=== PATIENT | female | born 1950 | race Caucasian/White ===

== ENCOUNTER 2017-03-30 08:09 | Observation (INO) | payer MEDICARE ==
[2017-03-30] MEDS ORDERED: Aspirin Low Dose CHEW TAB* 81 MG PO ONE (08:47)
[2017-03-30 09:17] LABS: Hematocrit 40 % (35-47); Hemoglobin 13.6 g/dl (12.0-16.0); Mean Corpuscular HGB Conc 34 g/dl (31-36); Mean Corpuscular Hemoglobin 34 pg (27-31); Mean Corpuscular Volume 99 fL (80-97); Mean Platelet Volume 8 um3 (7.4-10.4); Red Blood Count 4.04 10^6/ul (4.0-5.4); Red Cell Distribution Width 13 % (10.5-15); White Blood Count 3.5 10^3/ul (3.5-10.8)
[2017-03-30 09:26] LABS: Albumin 4.3 g/dL (3.2-5.2); Calcium 9.8 mg/dL (8.6-10.3); EGFR African American 90.4 (>60); EGFR Non-African American 70.3 (>60); Globulin 2.8 g/dL (2-4); Total Bilirubin 0.7 mg/dL (0.2-1.0); Total Protein 7.1 g/dL (6.4-8.9)
--- NOTE | 2017-03-30 10:08 | RAD ---
INDICATION: Chest pain COMPARISON: March 28, 2017 TECHNIQUE: An AP portable view obtained at 0930 hours is submitted. FINDINGS: Bones/Soft Tissues: There are no acute bony findings. Cardiomediastinal: The cardiomediastinal silhouette is normal. Lungs: There are no infiltrates. Pleura: There are no pleural effusions. Other: None IMPRESSION: NO ACTIVE DISEASE.
[2017-03-30 10:31] LABS: TSH (Thyroid Stimulating Horm) 1.12 mcIU/mL (0.34-5.60)
--- NOTE | 2017-03-30 11:47 | ED ---
Allie Powell SooYoung, scribed for Boom Arcos MD on 03/30/17 at 0834 . HPI Chest Pain - HPI Summary HPI Summary: A 66 y/o F presents to ED with c/o "fullness" in chest onset approx 0400 which woke pt from sleep. Associated sx: "flushing" in bilat UE, nausea, belching. Denies diaphoresis. Pt was last seen in ED on 03/28/17. The sx are the same as her prior visit. She felt OK when she was released from [facility] two days ago. She states she doesn't feel like she's in afib. She took Xanax at 0400 and Maalox at 0600 to no relief. Pt is taking Xarelto. She is scheduled to see Dr. Payan in two days. - History of Current Complaint Chief Complaint: EDChestPainROMI Time Seen by Provider: 03/30/17 08:24 Hx Obtained From: Patient, Family/Customer Relations Coordinator Onset/Duration: Started Hours Ago - approx 0400, Still Present Timing: Constant Current Severity: Moderate Pain Intensity: 7 Pain Scale Used: 0-10 Numeric Character: Other: - "fullness" in chest, "flushing" in arms Alleviating Factor(s): Nothing Associated Signs and Symptoms: Positive: Nausea, Other: - belching - Additional Pertinent History Primary Care Physician: [id number] - Allergy/Home Medications Allergies/Adverse Reactions: Allergies Allergy/AdvReac Type Severity Reaction Status Date / Time Citalopram [From Celexa] Allergy Agitation Verified 03/30/17 08:15 Penicillins [PCN] Allergy Rash Verified 03/30/17 08:15 Sulfamethoxazole Allergy Rash Verified 03/30/17 08:15 w/Trimethoprim [From Bactrim] Environmental/Seasonal Allergy Cough, Uncoded 03/30/17 08:15 Hayfever Post nasal drip PMH/Surg Hx/FS Hx/Imm Hx Previously Healthy: No Endocrine/Hematology History: Denies: Hx Diabetes Cardiovascular History: Reports: Hx Hypercholesterolemia, Hx Hypertension - ON MEDS, Hx Rheumatic Fever - A CHILD, Other Cardiovascular Problems/Disorders - PALPATATIONS, EPISODIC X10 YEARS, 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- Denies: Hx Angina, Hx Coronary Artery Disease, Hx Myocardial Infarction, Hx Pacemaker/ICD Respiratory History: Denies: Hx Asthma, Hx Chronic Obstructive Pulmonary Disease (COPD) GI History: Reports: Hx Gastroesophageal Reflux Disease Musculoskeletal History: Reports: Hx Arthritis, Hx Tendonitis, Other Musculoskeletal History - cervical disc disease Denies: Hx Osteoporosis Sensory History: Reports: Hx Cataracts, Hx Contacts or Glasses Denies: Hx Hearing Aid Opthamlomology History: Reports: Hx Cataracts, Hx Contacts or Glasses Neurological History: Reports: Hx Migraine Psychiatric History: Reports: Hx Anxiety Denies: Hx Panic Disorder - Cancer History Hx Chemotherapy: No Hx Radiation Therapy: No - Surgical History Surgery Procedure, Year, and Place: 1956 TONSILLECTOMY, [place]. DILATION AND CURETTAGE, [facility]. RIGHT GANGLION CYST EXCISION, [facility]. HYSTERECTOMY, [facility] Hx Anesthesia Reactions: No Infectious Disease History: No Infectious Disease History: Denies: Hx Clostridium Difficile, Hx Hepatitis, Hx Human Immunodeficiency Virus (HIV), Hx of Known/Suspected MRSA, Hx Shingles, Hx Tuberculosis, History Other Infectious Disease, Traveled Outside the in Last 30 Days - Family History Known Family History: Positive: Other - Cancer, dementia - Social History Occupation: Retired Lives: With Family Alcohol Use: Daily Alcohol Amount: 2 glasses of wine per day Hx Substance Use: Yes Substance Use Type: Reports: Prescribed Hx Tobacco Use: Yes Smoking Status (MU): Former Smoker Type: Cigarettes Amount Used/How Often: 1 1/2 PPD Length of Time of Smoking/Using Tobacco: 25 YEARS Have You Smoked in the Last Year: No Review of Systems Negative: Skin Diaphoresis Positive: Chest Pain - "fullness" Positive: Nausea, Other - pos: belching Positive: Other - bilat "flushing" UE All Other Systems Reviewed And Are Negative: Yes Physical Exam - Summary Physical Exam Summary: The patient is well-nourished in no acute distress and in no acute pain. The skin is warm and dry and skin color reflects adequate perfusion. HEENT: The head is normocephalic and atraumatic. The pupils are equal and reactive. The conjunctivae are clear and without drainage. Nares are patent and without drainage. Mouth reveals moist mucous membranes and the throat is without erythema and exudate. The external ears are intact. The ear canals are patent and without drainage. The tympanic membranes are intact. Neck is supple with full range of motion and non-tender. There are no carotid bruits. There is no neck vein distension. Respiratory: Chest is non-tender. Lungs are clear to auscultation and breath sounds are symmetrical and equal. Cardiovascular: Hear is regular rate and rhythm. There is no murmur or rub auscultated. There is no peripheral edema and pulses are symmetrical and equal. Abdomen: The abdomen is soft and non-tender. There are normal bowel sounds heard in all four quadrants and there is no organomegaly palpated. Musculoskeletal: There is no back pain noted. Extremities are non-tender with full range of motion. There is good capillary refill. There is no peripheral edema or calf tenderness elicited. Neurological: Patient is alert and oriented to person, place and time. The patient has symmetrical motor strength in all four extremities. Cranial nerves are grossly intact. Deep tendon reflexes are symmetrical and equal in all four extremities. Psychiatric: The patient has an appropriate affect and does not exhibit any anxiety or depression. Triage Information Reviewed: Yes Vital Signs On Initial Exam: Initial Vitals Temp Pulse Resp BP Pulse Ox 98.6 F 79 17 134/76 98 03/30/17 08:10 03/30/17 08:10 03/30/17 08:10 03/30/17 08:10 03/30/17 08:10 Vital Signs Reviewed: Yes - Aixa Coma Scale Coma Scale Total: 15 Diagnostics - Vital Signs Vital Signs Temp Pulse Resp BP Pulse Ox 03/30/17 08:24 73 95 03/30/17 08:22 158/82 03/30/17 08:10 98.6 F 79 17 134/76 98 - Laboratory Lab Results: Lab Results 03/30/17 03/30/17 03/30/17 Range/Units 09:00 09:00 09:00 WBC 3.5 (3.5-10.8) 10^3/ul RBC 4.04 (4.0-5.4) 10^6/ul Hgb 13.6 (12.0-16.0) g/dl Hct 40 (35-47) % MCV 99 H (80-97) fL MCH 34 H (27-31) pg MCHC 34 (31-36) g/dl RDW 13 (10.5-15) % Plt Count 245 (150-450) 10^3/ul MPV 8 (7.4-10.4) um3 Neut % (Auto) 61.6 (38-83) % Lymph % (Auto) 23.9 L (25-47) % [facility] % (Auto) 10.2 H (1-9) % Eos % (Auto) 3.4 (0-6) % Baso % (Auto) 0.9 (0-2) % Absolute Neuts (auto) 2.2 (1.5-7.7) 10^3/ul Absolute Lymphs (auto) 0.8 L (1.0-4.8) 10^3/ul Absolute Monos (auto) 0.4 (0-0.8) 10^3/ul Absolute Eos (auto) 0.1 (0-0.6) 10^3/ul Absolute Basos (auto) 0 (0-0.2) 10^3/ul Absolute Nucleated RBC 0 10^3/ul Nucleated RBC % 0.1 INR (Anticoag Therapy) 1.73 H (0.89-1.11) Sodium 137 (133-145) mmol/L Potassium 4.0 (3.5-5.0) mmol/L Chloride 103 (101-111) mmol/L Carbon Dioxide 27 (22-32) mmol/L Anion Gap 7 (2-11) mmol/L BUN 17 (6-24) mg/dL Creatinine 0.81 (0.51-0.95) mg/dL Est GFR ( Amer) 90.4 (>60) Est GFR (Non-Af Amer) 70.3 (>60) BUN/Creatinine Ratio 21.0 H (8-20) Glucose 103 H (70-100) mg/dL Lactic Acid (0.5-2.0) mmol/L Calcium 9.8 (8.6-10.3) mg/dL Total Bilirubin 0.70 (0.2-1.0) mg/dL AST 17 (13-39) U/L ALT 25 (7-52) U/L Alkaline Phosphatase 57 (34-104) U/L Troponin I 0.00 (<0.04) ng/mL Total Protein 7.1 (6.4-8.9) g/dL Albumin 4.3 (3.2-5.2) g/dL Globulin 2.8 (2-4) g/dL Albumin/Globulin Ratio 1.5 (1-3) TSH 1.12 (0.34-5.60) mcIU/mL 03/30/17 Range/Units 09:00 WBC (3.5-10.8) 10^3/ul RBC (4.0-5.4) 10^6/ul Hgb (12.0-16.0) g/dl Hct (35-47) % MCV (80-97) fL MCH (27-31) pg MCHC (31-36) g/dl RDW (10.5-15) % Plt Count (150-450) 10^3/ul MPV (7.4-10.4) um3 Neut % (Auto) (38-83) % Lymph % (Auto) (25-47) % [facility] % (Auto) (1-9) % Eos % (Auto) (0-6) % Baso % (Auto) (0-2) % Absolute Neuts (auto) (1.5-7.7) 10^3/ul Absolute Lymphs (auto) (1.0-4.8) 10^3/ul Absolute Monos (auto) (0-0.8) 10^3/ul Absolute Eos (auto) (0-0.6) 10^3/ul Absolute Basos (auto) (0-0.2) 10^3/ul Absolute Nucleated RBC 10^3/ul Nucleated RBC % INR (Anticoag Therapy) (0.89-1.11) Sodium (133-145) mmol/L Potassium (3.5-5.0) mmol/L Chloride (101-111) mmol/L Carbon Dioxide (22-32) mmol/L Anion Gap (2-11) mmol/L BUN (6-24) mg/dL Creatinine (0.51-0.95) mg/dL Est GFR ( Amer) (>60) Est GFR (Non-Af Amer) (>60) BUN/Creatinine Ratio (8-20) Glucose (70-100) mg/dL Lactic Acid 1.9 (0.5-2.0) mmol/L Calcium (8.6-10.3) mg/dL Total Bilirubin (0.2-1.0) mg/dL AST (13-39) U/L ALT (7-52) U/L Alkaline Phosphatase (34-104) U/L Troponin I (<0.04) ng/mL Total Protein (6.4-8.9) g/dL Albumin (3.2-5.2) g/dL Globulin (2-4) g/dL Albumin/Globulin Ratio (1-3) TSH (0.34-5.60) mcIU/mL Result Diagrams: 03/30/17 09:00 03/30/17 09:00 Lab Statement: Any lab studies that have been ordered have been reviewed, and results considered in the medical decision making process. - Radiology CXR Xray Interpretation: No Acute Changes - IMPRESSION: No active dz. ED physician has reviewed this radiology report and agrees. Radiology Interpretation Completed By: Radiologist - EKG 0823 EKG Rhythm: Sinus Rhythm - at 69bpm Ectopy: PVCs Chest Pain Course/Dx - Course Course Of Treatment: Chioma has presented a couple times with these same symptoms and I am concerned that they represent an anginal equivalent. I have asked the hospitalists to evaluate her for admission. - Diagnoses Provider Diagnoses: Angina at rest - Provider Notifications Discussed Care Of Patient With: Jodie Saucedo - consult Time Discussed With Above Provider: 09:57 Instructed by Provider To: Admit As Inpatient Discharge - Discharge Plan Condition: Stable Disposition: ADMITTED TO [facility] The documentation as recorded by the Allie tillman SooYoung accurately reflects the service I personally performed and the decisions made by me, Boom Arcos MD.
[2017-03-30] MEDS ORDERED: Acetaminophen TAB* 325 MG PO PRN (12:52)
[2017-03-30] MEDS ORDERED: Ondansetron INJ* 2 MG/ML VIAL IV PRN (12:52)
[2017-03-30] MEDS ORDERED: Acetaminophen TAB* 325 MG PO ONE (13:39)
[2017-03-30] MEDS: Famotidine TAB* 20 MG PO SCH ×2 (14:21→21:24)
[2017-03-30] MEDS: ALPRAZolam TAB* 0.25 MG PO PRN (14:21)
[2017-03-30] MEDS: Hydrocodone/Acetamin 10/325 1 TAB PO PRN ×2 (14:21→21:50)
--- NOTE | 2017-03-30 21:27 | HP ---
HISTORY AND PHYSICAL: ADDENDUM: Chioma Mariano is a 66-year-old female with a history of paroxysmal atrial fibrillation, who presented complaining of chest pain. Usually when she complains of chest pain, she is in atrial fibrillation, but today she was in sinus rhythm. She is going to be placed on overnight observation with a stress test in the morning. For further details of the patient's presentation and plan , please see history and physical dictated by Akua Hernandez on 03/30/17, with which I agree. [id number]/[facility] #: [id number] MTDD
--- NOTE | 2017-03-31 00:05 | HP ---
ATTENDING PHYSICIAN ADDENDUM NOW INCLUDED ON THIS REPORT CC: Laura Cummins NP; Terrence Naylor MD * HISTORY AND PHYSICAL: DATE OF ADMISSION: 03/30/17 ATTENDING PHYSICIAN: Jodie Saucedo MD * (as dictated by Paras Garces NP). PRIMARY CARE PROVIDER: Laura Cummins NP PRIMARY ARTISTS' MODEL: Terrence Naylor MD CHIEF COMPLAINT: Fullness in chest. HISTORY OF PRESENT ILLNESS: This is a 66-year-old female patient who was recently admitted and discharged from [facility] from 03/24/17 to 12/02. She initially presented to the hospital on 03/24/17 with palpitations and reports of fullness in her chest. She was noted to be in AFib when she arrived and converted to sinus rhythm. At that time, she was switched from aspirin to Xarelto under the direction of Cardiology and was sent home for followup with her PCP and liner inserter as an outpatient. She presents again today on 03/30/17, complaining again of fullness in her chest as well as palpitations that started this morning around 4 a.m. waking the patient up from sleep. She also describes a flushing radiating sensation that is present in her left arm, radiates across her chest and behind her back and goes on her right arm and up into her neck. She also describes nausea and indigestion, but denies diaphoresis. She felt these symptoms are the same as last time. She does state that she felt improved when she was discharged on 03/25/17 and did okay for approximately 2 days before the symptoms started again. She took some Xanax and Maalox this morning prior to coming in with no relief. She has been taking her other medications as prescribed. She is scheduled to see her liner inserter in 2 days. Here in the ER, the patient was found to be in sinus rhythm with some PVC's. Her troponin was negative. However, given her persistent complaint and repeat presentation, Hospital Medicine was consulted for admission. Additionally, the patient reports that she has been under a lot of stress recently as her was recently diagnosed with congestive heart failure and has had multiple health issues and she has been taking care of him. She also reports that she does have issues with anxiety and also the indigestion, and it is difficult to tease out what is causing what. PAST MEDICAL HISTORY: Includes: 1. Paroxysmal atrial fibrillation. 2. Hypertension. 3. Hyperlipidemia. 4. History of PVC's. 5. Pulmonary hypertension. 6. Anxiety. 7. Rheumatic fever as a child. PAST SURGICAL HISTORY: Includes: 1. Cervical spine fusion in November 2015. 2. Hysterectomy. 3. Ganglionic cyst excision. HOME MEDICATIONS: 1. Metoprolol succinate XL 100 mg q.a.m. 2. [place] 10/325 one tab q.6 h. p.r.n. 3. Fluoxetine 60 mg q.a.m. 4. Atorvastatin 80 mg daily. 5. Xanax 0.25 mg t.i.d. p.r.n. 6. Rivaroxaban 20 mg daily. ALLERGIES: Include CITALOPRAM, PENICILLIN, BACTRIM, and SEASONAL. FAMILY HISTORY: The patient reports mother with bladder cancer and her father who at age 50 from renal cell carcinoma. SOCIAL HISTORY: The patient has a pack a day smoking history for approximately 25 years. She does drink wine on a regular basis. She is and her Pedro Mariano is the surrogate decision maker. REVIEW OF SYSTEMS: General: The patient denies fevers, chills, changes to appetite, weakness and dizziness. Cardiac: She reports fullness in the chest, palpitations but denies chest pain. She denies recent edema or orthopnea. Respiratory: She denies cough, hemoptysis, shortness of breath. GI: She denies abdominal pain, nausea, vomiting, or diarrhea. She does report indigestion. : She denies dysuria or hematuria. Neuro: She denies any focal weakness or sensory loss. She does endorse a history of cervical neck pain with some neuropathy. EENT: The patient denies any new visual complaints, swallowing complaints. Musculoskeletal: She denies any new joint or muscle pains. Skin: She denies any new rashes or lesions. Psych: She does endorse a history of anxiety. PHYSICAL EXAMINATION GENERAL: This is a middle-aged appearing female who is sitting up in the hospital bed, in no acute distress. She is pleasant and interactive. VITAL SIGNS: Temperature 97.4, heart rate 64, respiratory rate 16, blood pressure 138/74, and O2 saturation 98%. HEENT: Head is atraumatic and normocephalic. Face is symmetrical. Pupils are equal, round, and reactive to light. Extraocular movements are intact. Oral mucosa is moist. There is no oropharyngeal erythema or exudate. NECK: Supple. The patient has full range of motion. No carotid bruits appreciated. There is no JVD noted. No lymphadenopathy appreciated. LUNGS: Clear to auscultation bilaterally. CARDIAC: S1 and S2 heart sounds. Regular rate and rhythm. No murmurs, rubs, or gallops. There is no peripheral edema. The patient has distal pulses that are symmetric and equal throughout. ABDOMEN: Soft, nontender, nondistended. Bowel sounds are normoactive and heard times all 4 quadrants. MUSCULOSKELETAL: The patient is able to move all extremities with full range of motion. NEURO: The patient is alert and oriented x4. She has symmetrical motor strength 5/5 in all 4 extremities. Cranial nerves II through XII are grossly intact. No focal deficits noted. PSYCH: The patient has some mild anxiety, but affect is appropriate. LABORATORY DATA AND DIAGNOSTIC STUDIES: CBC: WBC 3.5, hemoglobin 13.6, hematocrit 40, platelet count 245,000. CMP: Sodium 137, potassium 4.0, chloride 103, carbon dioxide 27, BUN 17, creatinine 0.81, glucose 103, lactic acid 1.9, calcium 9.8. Total bilirubin 0.7, AST 17, ALT 25, alk phos 57. Troponin 0.00 x2 at 9 o'clock and 12:20. Total protein 0.1, albumin 4.3. TSH 1.12. EKG from this morning shows sinus rhythm with PVCs. No ST or T-wave changes ___ ___ for acute ischemia. Chest x-ray, the patient shows no acute pathology. Old medical records were reviewed. ASSESSMENT AND PLAN: This is a 66-year-old female with a past medical history significant for paroxysmal atrial fibrillation, hypertension, premature ventricular contractions, hyperlipidemia, and anxiety who presents today with palpitations, complained of fullness in the chest, who had recently been evaluated for similar symptoms. We will admit her in OBV status to the telemetry floor. Plan is as follows: 1. Atypical chest pain. We will monitor the patient on telemetry and plan to obtain a stress test tomorrow given the patient's persistent complaint. Her MERRY score is only 2 and her initial troponins are negative; however, it is difficult to tease out her symptoms and the patient persistently complains of fullness and appears to be a concern for angina at rest. At this point in time , we will continue her home medications as she is clearly on maximal statin therapy as well as Xarelto and metoprolol. She will be n.p.o. after midnight for a stress test tomorrow. She can follow up with Dr. Naylor as previously scheduled as an outpatient. Assuming her stress test is negative, we will repeat an EKG in the morning. The patient has been advised to notify his staff if the chest pain returns or worsens. I am also going to start the patient on some famotidine to see if that helps with some of her dyspepsia that she is complaining of. She has not taken anything regularly for indigestion other than Maalox at home. We will continue her p.r.n. Xanax for anxiety in order to keep this controlled in order to better evaluate the patient's complaints. 2. History of paroxysmal atrial fibrillation, currently in sinus rhythm. Continue home metoprolol, Xarelto. 3. History of hypertension. Blood pressure is well controlled. Continue home metoprolol XL. 4. History of anxiety. Continue p.r.n. Xanax and Prozac. 5. History of chronic back and neck pain. Continue home p.r.n. [place]. 6. FEN. The patient is on a heart healthy diet, no caffeine. 7. DVT prophylaxis. She is on Xarelto. 8. Code status: The patient is a full code. TIME SPENT: Time spent on this admission was approximately 60 minutes, more than half the time being spent [id number] with the patient obtaining history and physical, performing the physical examination, and reviewing the plan of care. Plan of care was also reviewed with my attending, Dr. Saucedo, who is in agreement. PARAS GARCES NP ADDENDUM: Chioma Mariano is a 66-year-old female with a history of paroxysmal atrial fibrillation, who presented complaining of chest pain. Usually when she complains of chest pain, she is in atrial fibrillation, but today she was in sinus rhythm. She is going to be placed on overnight observation with a stress test in the morning. For further details of the patient's presentation and plan , please see history and physical dictated by Paras Garces on 03/30/17, with which I agree. JODIE SAUCEDO MD [id number]/[facility] #: [id number]/[facility] #: [id number] NINFA
[2017-03-31] MEDS: ALPRAZolam TAB* 0.25 MG PO PRN (03:22)
[2017-03-31] MEDS: Famotidine TAB* 20 MG PO SCH (07:05)
[2017-03-31 08:03] VITALS: BP 135/76
[2017-03-31] MEDS ORDERED: Metoprolol Succinate XL TAB* 100 MG PO SCH (09:00)
[2017-03-31] MEDS ORDERED: Rivaroxaban TAB(*) 20 MG TAB PO SCH (09:00)
[2017-03-31] MEDS ORDERED: FLUoxetine CAP* 20 MG PO SCH (09:00)
[2017-03-31] MEDS ORDERED: Atorvastatin* 80 MG TAB PO SCH (09:00)
--- NOTE | 2017-03-31 10:34 | RAD ---
HISTORY: Chest pain, hypertension, hyperlipidemia COMPARISONS: October 04, 2014 TECHNIQUE: A 1 day stress/rest myocardial perfusion study was performed, with exercise stress. The exercise portion was performed using the Sidney protocol, for a total METs of 7. The stress portion was monitored by Dr. Vieyra. Gated SPECT imaging was performed, with CT-based attenuation correction DOSE: Stress: Technetium 99m tetrofosmin, 25.8 millicuries, injected at 9:27 AM on March 31, 2017 Rest: Technetium 99m tetrofosmin, 10.7 millicuries, injected at 7:20 AM on March 31, 2017 Pharmacologic agent: None FINDINGS: CARDIAC MONITORING: Peak heart rate of 130 bpm, 87% of predicted EF: 68% TID: 0.97 MOTION: Normal motion, with normal wall thickening. PERFUSION: On the attenuation corrected images only, there is a small focus of residual of the septum which may be artifactual. OTHER: None IMPRESSION: EVALUATION IS LIMITED BY SUBMAXIMAL STRESS. QUESTIONABLE SMALL REVERSIBLE DEFECT OF THE SEPTUM ON ATTENUATION CORRECTED IMAGES ONLY, WHICH MAY BE ARTIFACTUAL. ASSESSMENT: LOW RISK. Based on imaging criteria from ACC/AHA 2002. Guideline Update for the Management of Patient's with Chronic Stable Angina, table 23. Noninvasive Risk Stratification. CPT II Codes: 3570F
--- NOTE | 2017-03-31 11:21 | PN ---
Subjective Date of Service: 03/31/17 Interval History: Patient seen and examined at bedside. Patient reports no further episodes. She stated that during episode she took her pulse and it was normal. She admits to being anxious, but states she feels better knowing her test was negative. She does admit to possibly having heartburn in the past. Family History: Unchanged from Admission Social History: Unchanged from Admission Past Medical History: Unchanged from Admission Objective Active Medications: Acetaminophen (Tylenol Tab*) 650 mg PO Q4H PRN Hydrocodone Bitart/Acetaminophen ([place] 10/325 (Nf)) 1 tab PO Q6H PRN Alprazolam (Xanax Tab*) 0.25 mg PO TID PRN Atorvastatin Calcium (Lipitor*) 80 mg PO DAILY ALBA Famotidine (Pepcid Tab*) 20 mg PO BID ALBA Fluoxetine HCl (Prozac Cap*) 60 mg PO QAM ALBA Metoprolol Succinate (Toprol Xl Tab*) 100 mg PO QAM ALBA Ondansetron HCl (Zofran Inj*) 4 mg IV Q6H PRN Rivaroxaban (Xarelto (*)) 20 mg PO DAILY ALBA Vital Signs Temp Pulse Resp BP Pulse Ox 98.5 F 70 18 135/76 97 03/31/17 07:31 03/31/17 07:31 03/31/17 07:31 03/31/17 07:31 03/31/17 07:31 Oxygen Devices in Use Now: None Appearance: sitting up in bed, NAD Eyes: No Scleral Icterus Ears/Nose/Mouth/Throat: NL Teeth, Lips, Gums Neck: NL Appearance and Movements; NL JVP Respiratory: Symmetrical Chest Expansion and Respiratory Effort, Clear to Auscultation Cardiovascular: NL Sounds; No Murmurs; No JVD, RRR Abdominal: NL Sounds; No Tenderness; No Distention Extremities: No Edema Skin: No Rash or Ulcers Neurological: Alert and Oriented x 3, NL Muscle Strength and Tone Lines/Tubes/Other Access: Clean, Dry and Intact Peripheral IV Result Diagrams: 03/30/17 09:00 03/30/17 09:00 Additional Lab and Data: . Assess/Plan/Problems-Billing Patient is a 66 y/o F w/ PMH significant for paroxysmal afib on Xarelto, anxiety , possible GERD in the past who presented to the ED w/ the c/o of chest pressure and palpitations. - Patient Problems (1) Chest pain (2) GERD (gastroesophageal reflux disease) (3) PAF (paroxysmal atrial fibrillation) (4) HTN (hypertension) (5) DVT prophylaxis (6) Full code status Status and Disposition: OBV for chest pain. Stable to be discharged home. See full dictated discharge summary for detail.
--- NOTE | 2017-04-01 03:14 | DS ---
CC: Dr. Naylor; Laura Cummins NP * DISCHARGE SUMMARY: DATE OF ADMISSION: 03/30/17 DATE OF DISCHARGE: 03/31/17 PRIMARY CARE PROVIDER: Laura Cummins NP. CUSTOMER SUPPORT AGENT: Dr. Naylor. ATTENDING PHYSICIAN: Jodie Saucedo MD * (report dictated by Tati Menjivar NP) PRIMARY DIAGNOSES: 1. Atypical chest pain. 2. Possible gastroesophageal reflux disease. 3. Paroxysmal atrial fibrillation. SECONDARY DIAGNOSES: 1. Hypertension. 2. Hyperlipidemia. 3. Pulmonary hypertension. 4. Anxiety. STUDIES WHILE IN THE HOSPITAL: 1. Chest x-ray, 03/30/17, no active disease. 2. Nuclear medicine stress test, 03/31/17. Evaluation is limited by submaximal stress. Questionable small reversible defect of the septum on attenuation- corrected images only, which may be artifactual. MEDICATIONS AT THE TIME OF DISCHARGE: New medications: Pepcid 20 mg oral twice daily. Following medications are all medications that the patient came in on and that she should continue: 1. [place] 10/325 one tablet every 6 hours as needed. 2. Toprol-XL 100 mg oral in the morning. 3. Lipitor 80 mg oral daily. 4. Xanax 0.25 mg oral 3 times daily as needed. 5. Prozac 60 mg oral in the morning. 6. Xarelto 20 mg oral daily. HISTORY OF PRESENT ILLNESS AND HOSPITAL COURSE: Ms. Mariano is a 66-year-old female with a past medical history significant for paroxysmal atrial fibrillation, recently diagnosed, and started on Xarelto, hypertension, anxiety , hyperlipidemia, who presented to the emergency room yesterday with a complaint of chest fullness and palpitation. For full details, please refer to history and physical dictated by Akua Hernandez NP. When the patient came into the emergency room, she was found to have a normal EKG and negative troponin. The patient is significantly under stress as her was recently diagnosed with congestive heart failure. The patient was placed on the telemetry floor and monitored overnight. She remained in normal sinus rhythm the entire time. She did not have any further episodes of this pain. Repeat EKG the next morning showed sinus rhythm with a rate of 73. Troponin remained negative. The patient underwent a nuclear cardiac stress test today. There was a small defect that was attributed to attenuation. The images have been reviewed by the covering critical care rn, who, on review of the images, reported this is normal and secondary to artifact. The cause of the patient's chest pain is most likely secondary to her anxiety or could be from GERD . The patient was started on twice-a-day Pepcid upon admission and will continue this at discharge to see if this helps. The patient does have a significant history of anxiety and is currently under a lot of stress. So, these episodes could also be due to anxiety. On 03/31/17, vitals were as follows: Temperature 98.5 , heart rate 70, normal sinus rhythm, respiratory rate 18, oxygen saturation 97 % on room air, blood pressure 135/76. At this point, the patient was stable for discharge. DISCHARGE PLAN: The patient will be discharged on a heart healthy diet. No caffeine. The patient is instructed to continue to limit her alcohol and caffeine intake for her atrial fibrillation. The patient has been counseled to return to the hospital if she experiences any further episodes where she finds her heart rate elevated or finds that the pain is persisting. The patient has a followup appointment with Dr. Naylor tomorrow and additionally she should follow up with her primary care provider. I have reviewed all these instructions with the patient, she is agreeable with her discharge today. This is a summarized report of a complex medical history and hospital stay. For more details, please see the entire medical record. TIME SPENT: Time for this discharge was 50 minutes, and 25 minutes were spent with the patient discussing medications on discharge and followup instructions. CONDITION ON DISCHARGE: Stable. Reviewed by TATI MENJIVAR NP 04/01/2017 1130 [id number]/[facility] #: [id number] NINFA
== END 2017-03-31 12:35 | disposition home or self-care (01) ==
LOC: ED 08:09 → MEDTELE 10:14
PROVIDERS: ADMIT Internal Medicine; ATTEND Internal Medicine
DX: R07.89 Other chest pain (principal); I48.0 Paroxysmal atrial fibrillation; Z79.01 Long term (current) use of anticoagulants; I10 Essential (primary) hypertension; E78.5 Hyperlipidemia, unspecified; I27.20 Pulmonary hypertension, unspecified; G89.29 Other chronic pain; F41.9 Anxiety disorder, unspecified; Z79.899 Other long term (current) drug therapy; Z88.0 Allergy status to penicillin; Z88.2 Allergy status to sulfonamides; Z88.8 Allergy status to other drugs, medicaments and biological substances; Z87.891 Personal history of nicotine dependence; I49.3 Ventricular premature depolarization
CPT/HCPCS: 36415; 71010; 78452; 80053; 83605; 84443; 84484; 85025; 85610; 93005; 93017; 96374; 99284; A9270-GY; A9502; G0378; J2405

== ENCOUNTER 2017-06-08 14:14 | Emergency (ER) | payer BC ==
--- OUTSIDE RECORDS SUMMARY | 2017-06-08 14:26 | XMS REPORT ---
:1950 External Reference #:[id number] Author Organization [facility] Address [address] [place] [address] Phone [phone] Care Team Providers Name Role Phone Laura Cummins Primary Care Physician Unavailable Payers Type Date Identification Numbers Payment Provider Subscriber Commercial Effective: Policy Number: [id number] Aetna Medicare Chioma Garzalwell 2016 Group Name: Aetna Medicare Ppo [address] PayID: [id number] [place] [address] Medigap Part B Expires: 2009 Policy Number: Ghi([facility] Chioma Trejo [id number] Incor) Group Name: Anatoliyi [address] PayID: [id number] [place] [address] Commercial Effective: Policy Number: [employer] Medicare Chioma Garzalwell 2009 [id number] Access Expires: 2010 [address] [place] [address] Commercial Expires: 2013 Policy Number: [employer] Chioma Garzalwell [id number] PayID: [id number] Today's Options [address] [address] [place] [address] Commercial Effective: Policy Number: Nena Medicare Chioma Garzalwell 2013 [id number] Blueppo Expires: 2016 PayID: [id number] [address] [address] SANG Lambert [address] Workers Compensation Onset: 1996 Policy Number: Inc[employer] Jasmine Chioma Trejo [id number] PayID: [id number] [place] [address] Problems Date Description Provider Status Onset: 11/23/2010 Pure hypercholesterolemia Sofy Salazar M.D. Active Onset: 11/23/2010 Essential hypertension Sofy Salazar M.D. Active Family History Date Family Member(s) Problem(s) Comments : (age 58 Father due to Renal Years) Cancer Mother Cancer, Bladder Mother due to () - perforated Septicemia gastric ulcer d/t NSAIDs : (age 83 Mother due to Years) Alzheimer's Disease Siblings 3 : (age 54 First Sister due to Cancer, Years) Lung Onset: (age 74 Second Sister [place] Years) Maternal Grandfather due to [place] () Maternal Grandmother due to Natural () Causes Social History Type Date Description Comments Marital Status Home Environment [place] Diet Healthy, Well Balanced Trying to avoid cholesterol. Yogurt, 1/2 Somali muffin, or cream of wheat for breakfast, Lean cuisine for lunch, Dinner; meat and vegetables or salad. 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 Work Status Not Currently Working Cigarette Use Former Cigarette Smoker 1 for 19 years Pack Daily ETOH Use Currently consumes 2 glasses of wine daily Smoking Patient is a former smoker Quit 1985 Enjoy Exercising Enjoys exercising uses treadmill approximately 3 days per week. During warmer months, pt sates she walks outside regularly. Exercise Type/Frequency Walks 3 times a week Allergies, Adverse Reactions, Alerts Date Description Reaction Status Severity Comments 09/10/2002 Penicillin active reaction to Im Pen in childhood 06/15/2008 Bactrim DS nausea, diarrhea active 05/03/2015 Celexa odd sensations active Medications Medication Date Status Form Strength Qnty SIG Indications Ordering Provider Protonix 05/09 Active Tablets 40mg 90tab [address] lee every day SANDOVAL CumminsP-C Xarelto 15 Active Tablets 20mg 90tab take (1) jesus tablet by patrick Cummins once JORGE-Margaret daily. Lisinopril 15 Active Tablets 2.5mg 30tab 1 by mouth R07.9 s every day Pablo [facility] Metoprolol 02/05 Active Tablets 100mg 60tab 1 by mouth Laura Succinate ER ER 24HR s every day in [facility], in the morning [facility] and 1 tab by mouth in at night Atorvastatin 04/02 Active Tablets 80mg 90tab 1 by mouth E78.0 Laura s [facility] Fluoxetine HCL 06/15 Active Capsules 40mg 90cap take one F41.1 Laura s capsule by Pablo, mouth every [facility] day Fluoxetine HCL 06/15 Active Capsules 20mg 90cap take one F41.9 Laura s capsule by [place], mouth every [facility]- day Alprazolam 05/08 Active Tablets 0.25mg 90tab take one F41.1 Laura s tablet three [facility], times daily as [employer] needed. max. daily dose: 3 tabs. Hydrocodone-Ac Active Tablets 5-325mg 1 by mouth Unknown etaminophen /0000 every 4 - 6 hours as needed for pain Lorzone Active Tablets 750mg 1 po bid as [place], /0000 needed for Tomás Moura, muscle spasms Protonix 04/30 Hx Tablets 20mg 60tab take one DR lee tablet by Pablo, - mouth twice a [facility] Lisinopril 04/02 Hx Tablets 5mg 30tab 1 by mouth R07.9 Laura s every day [place] - [facility] 04/02 Omeprazole 10/31 Hx Capsules 20mg 30cap [address] lee every day Pablo, - [facility] 05/07 Zostavax 02/18 Hx Solution [id number] 1unit give one Mely Rec 0.65ML s injectable Karthik Decker, - dose M.D. 05/07 Pravastatin 02/11 Hx Tablets 40mg 90tab take two 272.0 Soyf s tablets by K.W. - mouth every Martin, 04/02 day at M.D. /2012 bedtime. Pravastatin 01/25 Hx Tablets 20mg 90tab one po at hs 272.0 Sofy Sodium s Cristóbal Salazar, 02/11 M.D. Pravastatin 11/23 Hx Tablets 10mg 30tab two po qhs 272.0 Sodium s Cristóbal Salazar, 01/25 M.D. Vicodin 09/20 Hx 10/325 1-2 po qid [place], Elvin Mares MD 04/07 Bactrim DS 06/07 Hx Tablets 800-160 20tab 1 po bid 461.1 s Cristóbal Salazar, 12/14 M.D. Augmentin 07/18 Hx Tablets 875mg 20tab one bid x10 527.2 Barbara A. s Elvin ManningN.P.CBranden 12/23 Fluoxetine 05/21 Hx Capsules 20mg 30cap 1 po qd in 300.00 s addition to 40 K.W. - mg tablet Martin, 06/15 M.D. Fluoxetine 05/29 Hx Capsules 40mg 30cap 1 po qd 300.02 s Cristóbal Salazar, 06/15 M.D. Fluoxetine 05/08 Hx Capsules 20mg 30cap 1 po qd 300.02 Elvin Andrade M.D. 05/29 Fluoxetine 04/23 Hx Capsules 10mg 30cap one po qd for 300.02 s a week, ann Oconnor two po qd Martin, 05/08 M.D. Aspirin 04/18 Hx Ec Tab 81mg 100un take one I10 its daily. Cristóbal Salazar, 04/30 M.D. Premarin 07/08 Hx Tablets 0.625mg 30tab one po qd s Cristóbal Salazar, 11/23 M.D. Skelaxin 09/10 Hx Cristóbal Salazar, 12/19 M.D. Bextra 09/10 Hx 20mg 0unit s Cristóbal Salazar, 04/18 M.D. Premarin 09/10 Hx Tablets 0.3mg 30tab one daily s Cristóbal Salazar, 07/08 M.D. Premarin 07/12 Hx Tablets 0.625mg 30tab One qd s Cristóbal Salazar, 09/10 M.D. Bactrim DS 03/18 Hx 10uni One Pill bid ts X5 Days Elvin Beck NP 10/13 Atenolol 12/09 Hx Tablets 25mg 90tab take one s tablet daily Cristóbal Salazar, 11/23 M.D. Protonix Hx Tablets 40mg 30tab 1 po qd 300.02 Mumtaz /0000 s Elvin Arteaga MIndira 12/19 Celebrex Hx Capsules 100mg 0caps One PO qd Or 300.00 [place], /0000 bid For Tomás Moura, - Musculospeloneta 09/20 l Pain /2009 Hydrocodone Hx Tablets 10mg;325 0tabs One PO qid prn Sofy & /0000 mg Severe Pain K.WBranden Acetaminophen - Martin, 12/14 M.D. Atenolol Hx Tablets 50mg 180ta take one Laura /0000 bs tablet by Pablo, - twice a day [employer] 02/05 Famotidine Hx Tablets 20mg 1 tab po bid Unknown /0000 - 04/30 Immunizations CPT Code Status Date Vaccine Lot # [id number] Given 01/06/2017 Influenza Virus Vaccine, Quadrivalent, 3 Yr > Quad, Preserv Free [id number] Given 05/07/2016 Pneumovax 23 (PPSV23) 65+ years or high risk 2 to [id number] 62 year old [address]5063 Given 05/03/2015 Prevnar-13 Pneumococcal Conjugate Vaccine [id number] Given 04/03/2015 [place] [address] Given 03/10/2014 Zoster Vaccine 18154 Given 03/10/2014 Zoster Vaccine 89935 Given 02/15/2014 Influenza Virus Vaccine, Quadrivalent, 3 Yr > Quad, Preserv Free 51082 Given 03/10/2012 Influenza Vaccine-Preservative Free 3 Yrs And Above 86484 Given 02/10/2008 Tdap (Adacel) [id number] 91580 Given 05/30/1998 DT (Adult) Vital Signs Date Vital Result Comment 04/30/2017 Weight 158.00 lb Weight in kg's 71.669 BP Systolic 138 mmHg BP Diastolic 80 mmHg Heart Rate 71 /min Body Temperature 97.1 F Respiratory Rate 16 /min Height 64 inches 5'4" BMI (Body Mass Index) 27.1 kg/m2 O2 % BldC Oximetry 98 % 04/02/2017 Weight 160.00 lb Weight in kg's 72.576 BP Systolic 148 mmHg BP Diastolic 84 mmHg Heart Rate 76 /min Body Temperature 98.9 F Respiratory Rate 14 /min O2 % BldC Oximetry 98 % 05/07/2016 Weight 164.00 lb Weight in kg's 74.390 BP Systolic 132 mmHg BP Diastolic 78 mmHg Heart Rate 76 /min Body Temperature 98.4 F Respiratory Rate 16 /min Height 63 inches 5'3" BMI (Body Mass Index) 29.0 kg/m2 O2 % BldC Oximetry 97 % 05/03/2015 Weight 156.00 lb Weight in kg's 70.762 BP Systolic 120 mmHg BP Diastolic 86 mmHg Heart Rate 60 /min Height 63.5 inches 5'3.50" BMI (Body Mass Index) 27.2 kg/m2 10/31/2014 Weight 161.00 lb Weight in kg's 73.030 BP Systolic 120 mmHg BP Diastolic 60 mmHg Heart Rate 62 /min 08/19/2014 Weight 162.00 lb Weight in kg's 73.483 BP Systolic 110 mmHg BP Diastolic 60 mmHg Heart Rate 52 /min 05/02/2014 Weight 156.00 lb Weight in kg's 70.762 BP Systolic 130 mmHg BP Diastolic 82 mmHg Heart Rate 72 /min Height 62.25 inches 5'2.25" BMI (Body Mass Index) 28.3 kg/m2 03/17/2014 Weight 158.00 lb Weight in kg's 71.669 BP Systolic 128 mmHg BP Diastolic 76 mmHg Heart Rate 80 /min 03/10/2014 Weight 158.00 lb Weight in kg's 71.669 BP Systolic 130 mmHg BP Diastolic 70 mmHg Heart Rate 72 /min 03/03/2014 Weight 159.00 lb Weight in kg's 72.122 BP Systolic 122 mmHg BP Diastolic 66 mmHg Heart Rate 76 /min 02/24/2014 Weight 158.00 lb Weight in kg's 71.669 BP Systolic 126 mmHg BP Diastolic 80 mmHg Heart Rate 88 /min 02/18/2014 Weight 158.00 lb Weight in kg's 71.669 BP Systolic 140 mmHg BP Diastolic 82 mmHg Heart Rate 76 /min 02/10/2014 Weight 156.00 lb Weight in kg's 70.762 BP Systolic 128 mmHg BP Diastolic 72 mmHg Heart Rate 72 /min 01/27/2014 Weight 157.00 lb Weight in kg's 71.215 BP Systolic 130 mmHg BP Diastolic 78 mmHg Heart Rate 80 /min 01/21/2014 Weight 158.00 lb Weight in kg's 71.669 BP Systolic 140 mmHg BP Diastolic 82 mmHg Heart Rate 60 /min 12/09/2013 Weight 160.00 lb Weight in kg's 72.576 BP Systolic 138 mmHg BP Diastolic 88 mmHg Heart Rate 76 /min 12/03/2013 Weight 162.00 lb Weight in kg's 73.483 BP Systolic 148 mmHg BP Diastolic 94 mmHg Heart Rate 80 /min 07/05/2013 Weight 161.00 lb Weight in kg's 73.030 BP Systolic 134 mmHg BP Diastolic 90 mmHg Heart Rate 84 /min 04/02/2013 Weight 162.00 lb Weight in kg's 73.483 BP Systolic 152 mmHg BP Diastolic 98 mmHg Heart Rate 84 /min Height 63.5 inches 5'3.50" BMI (Body Mass Index) 28.2 kg/m2 04/07/2012 Weight 160.00 lb Weight in kg's 72.576 BP Systolic 130 mmHg BP Diastolic 80 mmHg Heart Rate 64 /min Body Temperature 97.2 F Height 63 inches 5'3" BMI (Body Mass Index) 28.3 kg/m2 11/23/2010 Weight 164.00 lb Weight in kg's 74.390 BP Systolic 142 mmHg BP Diastolic 90 mmHg Heart Rate 80 /min Height 62.75 inches 5'2.75" BMI (Body Mass Index) 29.3 kg/m2 09/20/2009 Weight 164.00 lb Weight in kg's 74.390 BP Systolic 142 mmHg BP Diastolic 80 mmHg Heart Rate 80 /min Height 63.50 inches 5'3.50" BMI (Body Mass Index) 28.6 kg/m2 06/07/2008 Weight 166.00 lb Weight in kg's 75.298 BP Systolic 142 mmHg BP Diastolic 88 mmHg Body Temperature 97.3 F 02/10/2008 Weight 164.00 lb Weight in kg's 74.390 BP Systolic 130 mmHg BP Diastolic 70 mmHg Heart Rate 72 /min Height 63 inches 5'3" BMI (Body Mass Index) 29.0 kg/m2 12/23/2006 Weight 162.00 lb Weight in kg's 73.483 BP Systolic 130 mmHg BP Diastolic 70 mmHg Heart Rate 76 /min Height 63 inches 5'3" BMI (Body Mass Index) 28.7 kg/m2 07/18/2006 Weight 163.00 lb Weight in kg's 73.937 BP Systolic 124 mmHg BP Diastolic 76 mmHg Heart Rate 80 /min Body Temperature 98.9 F 05/21/2006 Weight 162.00 lb Weight in kg's 73.483 BP Systolic 140 mmHg BP Diastolic 82 mmHg Heart Rate 84 /min 05/09/2006 Weight 163.00 lb Weight in kg's 73.937 BP Systolic 130 mmHg BP Diastolic 80 mmHg Heart Rate 80 /min 12/19/2004 Weight 152.00 lb Weight in kg's 68.947 BP Systolic 118 mmHg BP Diastolic 70 mmHg Heart Rate 80 /min Respiratory Rate 18 /min Height 63 inches 5'3" BMI (Body Mass Index) 26.9 kg/m2 05/29/2004 Weight 139.00 lb Weight in kg's 63.050 BP Systolic 140 mmHg BP Diastolic 80 mmHg 05/08/2004 Weight 140.00 lb Weight in kg's 63.504 BP Systolic 140 mmHg BP Diastolic 84 mmHg 04/23/2004 Weight 140.00 lb Weight in kg's 63.504 BP Systolic 130 mmHg BP Diastolic 80 mmHg 04/18/2004 Weight 143.00 lb Weight in kg's 64.865 BP Systolic 150 mmHg BP Diastolic 84 mmHg Heart Rate 78 /min 02/23/2004 Weight 140.50 lb Weight in kg's 63.731 BP Systolic 122 mmHg BP Diastolic 68 mmHg Heart Rate 100 /min Body Temperature 99.0 F 07/08/2003 Weight 149.00 lb Weight in kg's 67.586 BP Systolic 140 mmHg BP Diastolic 90 mmHg 09/10/2002 Weight 149.00 lb Weight in kg's 67.586 BP Systolic 126 mmHg BP Diastolic 82 mmHg Heart Rate 80 /min Respiratory Rate 18 /min Height 63 inches BMI (Body Mass Index) 26.4 kg/m2 03/18/2002 Weight 147.00 lb Weight in kg's 66.7 BP Systolic 130 mmHg BP Diastolic 84 mmHg Body Temperature 97.8 F Results Test Date Test Result H/L Range Note CBC Auto Diff 04/28/2017 White Blood Count 3.9 10^3/uL 3.5-10.8 Red Blood Count 4.18 10^6/uL 4.0-5.4 Hemoglobin 14.1 g/dL 12.0-16.0 Hematocrit 42 % 35-47 Mean Corpuscular Volume 100 fL High 80-97 Mean Corpuscular Hemoglobin 34 pg High 27-31 Mean Corpuscular HGB Conc 34 g/dL 31-36 Red Cell Distribution Width 13 % 10.5-15 Platelet Count 279 10^3/uL 150-450 Mean Platelet Volume 8 um3 7.4-10.4 Abs Neutrophils 2.4 10^3/uL 1.5-7.7 Abs Lymphocytes 0.9 10^3/uL Low 1.0-4.8 Abs Monocytes 0.3 10^3/uL 0-0.8 Abs Eosinophils 0.2 10^3/uL 0-0.6 Abs Basophils 0 10^3/uL 0-0.2 Abs Nucleated RBC 0.01 10^3/uL Granulocyte % 61.7 % 38-83 Lymphocyte % 23.7 % Low 25-47 Monocyte % 8.7 % 1-9 Eosinophil % 5.3 % 0-6 Basophil % 0.6 % 0-2 Nucleated Red Blood Cells % 0.2 Comp Metabolic Panel 04/28/2017 Sodium 140 mmol/L 133-145 Potassium 4.1 mmol/L 3.5-5.0 Chloride 104 mmol/L 101-111 Co2 Carbon Dioxide 29 mmol/L 22-32 Anion Gap 7 mmol/L 2-11 Glucose 105 mg/dL High 70-100 Blood Urea Nitrogen 20 mg/dL 6-24 Creatinine 0.84 mg/dL 0.51-0.95 BUN/Creatinine Ratio 23.8 High 8-20 Calcium 9.7 mg/dL 8.6-10.3 Total Protein 7.2 g/dL 6.4-8.9 Albumin 4.6 g/dL 3.2-5.2 Globulin 2.6 g/dL 2-4 Albumin/Globulin Ratio 1.8 1-3 Total Bilirubin 0.70 mg/dL 0.2-1.0 Alkaline Phosphatase 66 U/L 34-104 Alt 33 U/L 7-52 Ast 22 U/L 13-39 Egfr Non- 67.4 >60 Egfr 86.7 >60 1 Lipid Profile (Trig/Chol/HDL) 04/28/2017 Triglycerides 183 mg/dL 2 Cholesterol 248 mg/dL 3 HDL Cholesterol 64.9 mg/dL 4 LDL Cholesterol 147 mg/dL 5 Laboratory test finding 03/30/2017 Inr 1.73 High 0.89-1.11 CBC Auto Diff 03/30/2017 White Blood Count 3.5 10^3/uL 3.5-10.8 Red Blood Count 4.04 10^6/uL 4.0-5.4 Hemoglobin 13.6 g/dL 12.0-16.0 Hematocrit 40 % 35-47 Mean Corpuscular Volume 99 fL High 80-97 Mean Corpuscular Hemoglobin 34 pg High 27-31 Mean Corpuscular HGB Conc 34 g/dL 31-36 Red Cell Distribution Width 13 % 10.5-15 Platelet Count 245 10^3/uL 150-450 Mean Platelet Volume 8 um3 7.4-10.4 Abs Neutrophils 2.2 10^3/uL 1.5-7.7 Abs Lymphocytes 0.8 10^3/uL Low 1.0-4.8 Abs Monocytes 0.4 10^3/uL 0-0.8 Abs Eosinophils 0.1 10^3/uL 0-0.6 Abs Basophils 0 10^3/uL 0-0.2 Abs Nucleated RBC 0 10^3/uL Granulocyte % 61.6 % 38-83 Lymphocyte % 23.9 % Low 25-47 Monocyte % 10.2 % High 1-9 Eosinophil % 3.4 % 0-6 Basophil % 0.9 % 0-2 Nucleated Red Blood Cells % 0.1 Laboratory test finding 03/30/2017 Lactic Acid 1.9 mmol/L 0.5-2.0 6 Comp Metabolic Panel 03/30/2017 Sodium 137 mmol/L 133-145 Potassium 4.0 mmol/L 3.5-5.0 Chloride 103 mmol/L 101-111 Co2 Carbon Dioxide 27 mmol/L 22-32 Anion Gap 7 mmol/L 2-11 Glucose 103 mg/dL High 70-100 Blood Urea Nitrogen 17 mg/dL 6-24 Creatinine 0.81 mg/dL 0.51-0.95 BUN/Creatinine Ratio 21.0 High 8-20 Calcium 9.8 mg/dL 8.6-10.3 Total Protein 7.1 g/dL 6.4-8.9 Albumin 4.3 g/dL 3.2-5.2 Globulin 2.8 g/dL 2-4 Albumin/Globulin Ratio 1.5 1-3 Total Bilirubin 0.70 mg/dL 0.2-1.0 Alkaline Phosphatase 57 U/L 34-104 Alt 25 U/L 7-52 Ast 17 U/L 13-39 Egfr Non- 70.3 >60 Egfr 90.4 >60 7 Laboratory test finding 03/30/2017 Troponin-I (TnI) 0.00 ng/mL <0.04 TSH (Thyroid Stimulating Horm) 1.12 mcIU/mL 0.34-5.60 Laboratory test finding 03/28/2017 TSH (Thyroid Stimulating 1.30 mcIU/mL 0.34-5.60 Horm) CKMB 03/28/2017 CKMB ng/mL 1.7 ng/mL 0.6-6.3 Laboratory test finding 03/28/2017 Troponin-I (TnI) 0.00 ng/mL <0.04 CBC Auto Diff 03/28/2017 White Blood Count 4.6 10^3/uL 3.5-10.8 Red Blood Count 4.10 10^6/uL 4.0-5.4 Hemoglobin 14.0 g/dL 12.0-16.0 Hematocrit 41 % 35-47 Mean Corpuscular Volume 99 fL High 80-97 Mean Corpuscular Hemoglobin 34 pg High 27-31 Mean Corpuscular HGB Conc 34 g/dL 31-36 Red Cell Distribution Width 13 % 10.5-15 Platelet Count 252 10^3/uL 150-450 Mean Platelet Volume 8 um3 7.4-10.4 Abs Neutrophils 3.4 10^3/uL 1.5-7.7 Abs Lymphocytes 0.8 10^3/uL Low 1.0-4.8 Abs Monocytes 0.3 10^3/uL 0-0.8 Abs Eosinophils 0.1 10^3/uL 0-0.6 Abs Basophils 0 10^3/uL 0-0.2 Abs Nucleated RBC 0 10^3/uL Granulocyte % 72.6 % 38-83 Lymphocyte % 17.0 % Low 25-47 Monocyte % 6.8 % 1-9 Eosinophil % 2.7 % 0-6 Basophil % 0.9 % 0-2 Nucleated Red Blood Cells % 0.1 Inr/Protime 03/28/2017 Inr 0.92 0.89-1.11 Laboratory test finding 03/28/2017 Partial Thrombo Time 28.5 seconds 26.0 -36.3 PTT Lactic Acid 1.7 mmol/L 0.5-2.0 8 B-Type Natriuretic Peptide BNP 72 pg/mL 9 Laboratory test finding 03/28/2017 Magnesium 1.9 mg/dL 1.9-2.7 Creatine Kinase 72 U/L 10-223 Troponin-I (TnI) 0.00 ng/mL <0.04 Myoglobin 17.5 ng/mL 14.3-65.8 Comp Metabolic Panel 03/28/2017 Sodium 139 mmol/L 133-145 Potassium 4.0 mmol/L 3.5-5.0 Chloride 106 mmol/L 101-111 Co2 Carbon Dioxide 24 mmol/L 22-32 Anion Gap 9 mmol/L 2-11 Glucose 103 mg/dL High 70-100 Blood Urea Nitrogen 18 mg/dL 6-24 Creatinine 0.78 mg/dL 0.51-0.95 BUN/Creatinine Ratio 23.1 High 8-20 Calcium 9.8 mg/dL 8.6-10.3 Total Protein 7.3 g/dL 6.4-8.9 Albumin 4.4 g/dL 3.2-5.2 Globulin 2.9 g/dL 2-4 Albumin/Globulin Ratio 1.5 1-3 Total Bilirubin 0.60 mg/dL 0.2-1.0 Alkaline Phosphatase 59 U/L 34-104 Alt 30 U/L 7-52 Ast 20 U/L 13-39 Egfr Non- 73.4 >60 Egfr 94.5 >60 10 CBC Auto Diff 04/30/2016 White Blood Count 3.3 10^3/uL Low 3.5-10.8 Red Blood Count 4.24 10^6/uL 4.0-5.4 Hemoglobin 13.8 g/dL 12.0-16.0 Hematocrit 42 % 35-47 Mean Corpuscular Volume 99 fL High 80-97 Mean Corpuscular Hemoglobin 33 pg High 27-31 Mean Corpuscular HGB Conc 33 g/dL 31-36 Red Cell Distribution Width 14 % 10.5-15 Platelet Count 255 10^3/uL 150-450 Mean Platelet Volume 8 um3 7.4-10.4 Abs Neutrophils 1.6 10^3/uL 1.5-7.7 Abs Lymphocytes 1.1 10^3/uL 1.0-4.8 Abs Monocytes 0.4 10^3/uL 0-0.8 Abs Eosinophils 0.1 10^3/uL 0-0.6 Abs Basophils 0 10^3/uL 0-0.2 Abs Nucleated RBC 0.01 10^3/uL Granulocyte % 49.2 % 38-83 Lymphocyte % 34.0 % 25-47 Monocyte % 11.3 % High 1-9 Eosinophil % 4.4 % 0-6 Basophil % 1.1 % 0-2 Nucleated Red Blood Cells % 0.3 Comp Metabolic Panel 04/30/2016 Sodium 138 mmol/L 133-145 Potassium 4.4 mmol/L 3.5-5.0 Chloride 103 mmol/L 101-111 Co2 Carbon Dioxide 30 mmol/L 22-32 Anion Gap 5 mmol/L 2-11 Glucose 102 mg/dL High 70-100 Blood Urea Nitrogen 19 mg/dL 6-24 Creatinine 0.74 mg/dL 0.51-0.95 BUN/Creatinine Ratio 25.7 High 8-20 Calcium 9.6 mg/dL 8.6-10.3 Total Protein 7.1 g/dL 6.4-8.9 Albumin 4.4 g/dL 3.2-5.2 Globulin 2.7 g/dL 2-4 Albumin/Globulin Ratio 1.6 1-3 Total Bilirubin 0.60 mg/dL 0.2-1.0 Alkaline Phosphatase 56 U/L 34-104 Alt 34 U/L 7-52 Ast 24 U/L 13-39 Egfr Non- 78.3 >60 Egfr 100.7 >60 11 Lipid Profile (Trig/Chol/HDL) 04/30/2016 Triglycerides 176 mg/dL 12 Cholesterol 250 mg/dL 13 HDL Cholesterol 63.8 mg/dL 14 LDL Cholesterol 151 mg/dL 15 Urine DIP 05/03/2015 Leukocytes neg Neg Urine Nitrites neg Neg Urobilinogen norm Norm Total Protein, Urine + Neg Urine pH 6.0 5-6 Urine Blood 5-10 High Neg Specific [place] 1.025 High 1.01-1.02 Urine Ketones neg Neg Urine Bilirubin neg Neg Urine Glucose norm Norm CBC Auto Diff 05/03/2015 White Blood Count 6.5 10^3/uL 3.5-10.8 Red Blood Count 4.19 10^6/uL 4.0-5.4 Hemoglobin 13.9 g/dL 12.0-16.0 Hematocrit 43 % 35-47 Mean Corpuscular Volume 102 fL High 80-97 Mean Corpuscular Hemoglobin 33 pg High 27-31 Mean Corpuscular HGB Conc 33 g/dL 31-36 Red Cell Distribution Width 13 % 10.5-15 Platelet Count 258 10^3/uL 150-450 Mean Platelet Volume 9 um3 7.4-10.4 Abs Neutrophils 4.8 10^3/uL 1.5-7.7 Abs Lymphocytes 1.1 10^3/uL 1.0-4.8 Abs Monocytes 0.4 10^3/uL 0-0.8 Abs Eosinophils 0.1 10^3/uL 0-0.6 Abs Basophils 0 10^3/uL 0-0.2 Abs Nucleated RBC 0 10^3/uL Granulocyte % 73.7 % 38-83 Lymphocyte % 16.8 % Low 25-47 Monocyte % 6.7 % 1-9 Eosinophil % 2.1 % 0-6 Basophil % 0.7 % 0-2 Nucleated Red Blood Cells % 0.1 Comp Metabolic Panel 05/03/2015 Sodium 138 mmol/L 133-145 Potassium 4.4 mmol/L 3.5-5.0 Chloride 103 mmol/L 101-111 Co2 Carbon Dioxide 28 mmol/L 22-32 Anion Gap 7 mmol/L 2-11 Glucose 93 mg/dL 70-100 Blood Urea Nitrogen 19 mg/dL 6-24 Creatinine 0.86 mg/dL 0.51-0.95 BUN/Creatinine Ratio 22.1 High 8-20 Calcium 9.7 mg/dL 8.6-10.3 Total Protein 7.0 g/dL 6.4-8.9 Albumin 4.5 g/dL 3.2-5.2 Globulin 2.5 g/dL 2-4 Albumin/Globulin Ratio 1.8 1-3 Total Bilirubin 0.50 mg/dL 0.2-1.0 Alkaline Phosphatase 49 U/L 34-104 Alt 17 U/L 7-52 Ast 17 U/L 13-39 Egfr Non- 66.0 >60 Egfr 84.9 >60 16 Lipid Profile (Trig/Chol/HDL) 05/03/2015 Triglycerides 266 mg/dL 17 Cholesterol 296 mg/dL 18 HDL Cholesterol 61.6 mg/dL 19 LDL Cholesterol 181 mg/dL 20 CBC Auto Diff 10/03/2014 White Blood Count 5.9 10^3/uL 4.8-10.8 Red Blood Count 4.07 10^6/uL 4.0-5.4 Hemoglobin 14.0 g/dL 12.0-16.0 Hematocrit 41 % 35-47 Mean Corpuscular Volume 102 fL High 80-97 Mean Corpuscular Hemoglobin 35 pg High 27-31 Mean Corpuscular HGB Conc 34 g/dL 31-36 Red Cell Distribution Width 13 % 10.5-15 Platelet Count 232 10^3/uL 150-450 Mean Platelet Volume 8 um3 7.4-10.4 Abs Neutrophils 4.2 10^3/uL 1.5-7.7 Abs Lymphocytes 1.0 10^3/uL 1.0-4.8 Abs Monocytes 0.6 10^3/uL 0-0.8 Abs Eosinophils 0.1 10^3/uL 0-0.6 Abs Basophils 0 10^3/uL 0-0.2 Abs Nucleated RBC 0 10^3/uL Granulocyte % 70.4 % 38-83 Lymphocyte % 17.0 % Low 25-47 Monocyte % 9.4 % High 1-9 Eosinophil % 2.5 % 0-6 Basophil % 0.7 % 0-2 Nucleated Red Blood Cells % 0.1 Inr/Protime 10/03/2014 Inr 0.90 0.78-1.07 Laboratory test finding 10/03/2014 Activated Partial 28.5 seconds 26.0- 36.3 Thrombo Time Comp Metabolic Panel 10/03/2014 Sodium 138 mmol/L 133-145 Potassium 3.8 mmol/L 3.5-5.0 Chloride 105 mmol/L 101-111 Co2 Carbon Dioxide 26 mmol/L 22-32 Anion Gap 7 mmol/L 2-11 Glucose 104 mg/dL High 70-100 Blood Urea Nitrogen 23 mg/dL 6-24 Creatinine 1.09 mg/dL High 0.51-0.95 BUN/Creatinine Ratio 21.1 High 8-20 Calcium 9.4 mg/dL 8.6-10.3 Total Protein 7.1 g/dL 6.4-8.9 Albumin 4.5 g/dL 3.2-5.2 Globulin 2.6 g/dL 2-4 Albumin/Globulin Ratio 1.7 1-3 Total Bilirubin 0.40 mg/dL 0.2-1.0 Alkaline Phosphatase 62 U/L 34-104 Alt 30 U/L 7-52 Ast 28 U/L 13-39 Egfr Non- 50.2 >60 Egfr 64.6 >60 21 Laboratory test finding 10/03/2014 Magnesium 2.0 mg/dL 1.9-2.7 22 Troponin I 0.00 ng/mL <0.03 23 C Reactive Protein < 1.00 mg/L < 5.00 24 TSH (Thyroid Stimulating Horm) 2.15 ?IU/mL 0.34-5.60 CBC Auto Diff 08/15/2014 White Blood Count 4.9 10^3/uL 4.8-10.8 Red Blood Count 4.05 10^6/uL 4.0-5.4 Hemoglobin 13.9 g/dL 12.0-16.0 Hematocrit 41 % 35-47 Mean Corpuscular Volume 102 fL High 80-97 Mean Corpuscular Hemoglobin 34 pg High 27-31 Mean Corpuscular HGB Conc 34 g/dL 31-36 Red Cell Distribution Width 14 % 10.5-15 Platelet Count 255 10^3/uL 150-450 Mean Platelet Volume 8 um3 7.4-10.4 Abs Neutrophils 3.3 10^3/uL 1.5-7.7 Abs Lymphocytes 1.0 10^3/uL 1.0-4.8 Abs Monocytes 0.5 10^3/uL 0-0.8 Abs Eosinophils 0.1 10^3/uL 0-0.6 Abs Basophils 0 10^3/uL 0-0.2 Abs Nucleated RBC 0.01 10^3/uL Granulocyte % 66.3 % 38-83 Lymphocyte % 20.7 % Low 25-47 Monocyte % 10.3 % High 1-9 Eosinophil % 2.0 % 0-6 Basophil % 0.7 % 0-2 Nucleated Red Blood Cells % 0.2 Comp Metabolic Panel 08/15/2014 Sodium 138 mmol/L 133-145 Potassium 3.7 mmol/L 3.5-5.0 Chloride 104 mmol/L 101-111 Co2 Carbon Dioxide 27 mmol/L 22-32 Anion Gap 7 mmol/L 2-11 Glucose 88 mg/dL 70-100 Blood Urea Nitrogen 16 mg/dL 6-24 Creatinine 0.77 mg/dL 0.51-0.95 BUN/Creatinine Ratio 20.8 High 8-20 Calcium 9.7 mg/dL 8.6-10.3 Total Protein 7.1 g/dL 6.4-8.9 Albumin 4.5 g/dL 3.2-5.2 Globulin 2.6 g/dL 2-4 Albumin/Globulin Ratio 1.7 1-3 Total Bilirubin 0.40 mg/dL 0.2-1.0 Alkaline Phosphatase 55 U/L 34-104 Alt 30 U/L 7-52 Ast 24 U/L 13-39 Egfr Non- 75.0 >60 Egfr 96.5 >60 25 Laboratory test finding 08/15/2014 Magnesium 2.1 mg/dL 1.9-2.7 Troponin I 0.00 ng/mL <0.03 26 TSH (Thyroid Stimulating Horm) 0.81 IU/mL 0.34-5.60 Liver Function Panel 04/25/2014 Total Protein 7.4 g/dL 6.4-8.9 27 Albumin 4.8 g/dL 3.2-5.2 27 Globulin 2.6 g/dL 2-4 27 Albumin/Globulin Ratio 1.8 1-3 27 Total Bilirubin 0.70 mg/dL 0.2-1.0 27 Direct Bilirubin 0.10 mg/dL 0.03-0.18 27 Indirect Bilirubin 0.6 mg/dL 0.3-1.0 27 Alkaline Phosphatase 72 U/L 34-104 27 Alt 37 U/L 7-52 27 Ast 28 U/L 13-39 27 Lipid Profile (Trig/Chol/HDL) 04/25/2014 Triglycerides 181 mg/dL 27, 28 Cholesterol 201 mg/dL 27, 29 HDL Cholesterol 65.1 mg/dL 27, 30 LDL Cholesterol 100 mg/dL 27, 31 Basic Metabolic Panel 04/25/2014 Sodium 139 mmol/L 133-145 27 Potassium 3.9 mmol/L 3.5-5.0 27 Chloride 102 mmol/L 101-111 27 Co2 Carbon Dioxide 28 mmol/L 22-32 27 Anion Gap 9 mmol/L 2-11 27 Glucose 100 mg/dL 70-100 27 Blood Urea Nitrogen 16 mg/dL 6-24 27 Creatinine 0.76 mg/dL 0.51-0.95 27 BUN/Creatinine Ratio 21.1 High 8-20 27 Calcium 9.7 mg/dL 8.6-10.3 27 Egfr Non- 76.4 >60 27 Egfr 98.2 >60 27, 32 CBC No Diff 04/25/2014 White Blood Count 4.7 10^3/uL Low 4.8-10.8 27 Red Blood Count 4.45 10^6/uL 4.0-5.4 27 Hemoglobin 14.8 g/dL 12.0-16.0 27 Hematocrit 45 % 35-47 27 Mean Corpuscular Volume 100 fL High 80-97 27 Mean Corpuscular Hemoglobin 33 pg High 27-31 27 Mean Corpuscular HGB Conc 33 g/dL 31-36 27 Red Cell Distribution Width 13 % 10.5-15 27 Platelet Count 305 10^3/uL 150-450 27 Mean Platelet Volume 8 um3 7.4-10.4 27 Laboratory test 04/25/2014 TSH (Thyroid 0.87 IU/mL 0.34-5.60 27, 33 finding Stimulating Horm) Vitamin D 1,25-Dihydroxy 66 pg/mL 18-78 27, 34 Statin 06/28/2013 Ast 23 U/L 12-42 35 Alt 32 U/L 14-54 36 Lipid Profile (Trig/Chol/HDL) 06/28/2013 Triglycerides 164 mg/dL 40-200 Cholesterol 236 mg/dL High Less than 200 HDL Cholesterol 65 mg/dL High 40-60 37 Cholesterol/HDL Ratio 3.6 Average 1-4.44 LDL Cholesterol 138.2 High Less Than 100 38 Liver Function Panel 03/26/2013 Total Protein 7.0 g/dL 6.2-8.1 Albumin 4.6 g/dL 3.2-5.2 Globulin 2.4 g/dL 2-4 Albumin/Globulin Ratio 1.9 1-3 Total Bilirubin 0.8 mg/dL 0.4-1.5 Direct Bilirubin 0.1 mg/dL 0.1-0.5 Indirect Bilirubin 0.7 mg/dL 0.3-1.0 Alkaline Phosphatase 71 U/L 30-110 Alt 29 U/L 14-54 Ast 23 U/L 12-42 Lipid Profile (Trig/Chol/HDL) 03/26/2013 Triglycerides 237 mg/dL High 40- 200 Cholesterol 301 mg/dL High Less than 200 HDL Cholesterol 61 mg/dL High 40-60 39 Cholesterol/HDL Ratio 4.9 Average High 1-4.44 LDL Cholesterol 192.6 High Less Than 100 40 Basic Metabolic Panel 03/26/2013 Sodium 140 mmol/L 133-145 Potassium 4.3 mmol/L 3.5-5.0 Chloride 105 mmol/L 101-111 Co2 Carbon Dioxide 29.0 mmol/L 22-32 Anion Gap 6.0 mmol/L 2-11 Glucose 99 mg/dL 70-100 Blood Urea Nitrogen 15 mg/dL 6-24 Creatinine 0.90 mg/dL 0.50-1.40 BUN/Creatinine Ratio 16.7 8-20 Calcium 9.7 mg/dL 8.1-9.9 Egfr Non- 63.0 >60 Egfr 81.1 >60 41 CBC No Diff 03/26/2013 White Blood Count 3.8 10^3/uL Low 4.8-10.8 Red Blood Count 4.54 10^6/uL 4.0-5.4 Hemoglobin 14.4 g/dL 12.0-16.0 Hematocrit 46 % 35-47 Mean Corpuscular Volume 100 fL High 80-97 Mean Corpuscular Hemoglobin 32 pg High 27-31 Mean Corpuscular HGB Conc 32 g/dL 31-36 Red Cell Distribution Width 13 % 10.5-15 Platelet Count 291 10^3/uL 150-450 Mean Platelet Volume 9 um3 7.4-10.4 Laboratory test finding 03/26/2013 TSH (Thyroid Stimulating 0.77 miu/mL 0.34-5.60 42 Horm) Vitamin D 1,25-Dihydroxy 57 pg/mL 18-78 43 Vitamin D, 25 Hydroxy 04/08/2012 25-Hydroxy Vitamin D2 <4.0 ng/mL 25-Hydroxy Vitamin D3 29 ng/mL 25-Hydroxy Vitamin D Total 29 ng/mL 25-80 44 Laboratory test finding 04/08/2012 Vitamin B12 492 pg/mL 180-914 45 Lipid Profile (Trig/Chol/HDL) 04/08/2012 Triglycerides 183 mg/dL 40-200 Cholesterol 284 mg/dL High Less than 200 HDL Cholesterol 63 mg/dL High 40-60 46 Cholesterol/HDL Ratio 4.5 AVERAGE High 1-4.44 LDL Cholesterol 184.4 mg/dL High Less Than 100 47 Comp Metabolic Panel 04/08/2012 Sodium 138 mmol/L 133-145 Potassium 4.3 mmol/L 3.5-5.0 Chloride 104 mmol/L 101-111 Co2 Carbon Dioxide 28.0 mmol/L 22-32 Anion Gap 6.0 mmol/L 2-11 Glucose 101 mg/dL High 70-100 Blood Urea Nitrogen 12 mg/dL 6-24 Creatinine 0.80 mg/dL 0.50-1.40 BUN/Creatinine Ratio 15.0 8-20 Calcium 9.2 mg/dL 8.1-9.9 Total Protein 6.5 GM/DL 6.2-8.1 Albumin 4.2 GM/DL 3.2-5.2 Globulin 2.3 GM/DL 2-4 Albumin/Globulin Ratio 1.8 1-3 Total Bilirubin 0.5 mg/dL 0.1-1.0 48 Alkaline Phosphatase 67 U/L 30-110 Alt 25 U/L 14-54 Ast 21 U/L 12-42 Egfr Non- 72.4 >60 Egfr 93.2 >60 49 CBC No Diff 04/08/2012 White Blood Count 2.8 10^3/uL Low 4.8-10.8 Red Blood Count 3.99 10^6/uL Low 4.0-5.4 Hemoglobin 13.6 g/dL 12.0-16.0 Hematocrit 41 % 35-47 Mean Corpuscular Volume 102 fL High 80-97 Mean Corpuscular Hemoglobin 34 pg High 27-31 Mean Corpuscular HGB Conc 34 g/dL 31-36 Red Cell Distribution Width 13 % 10.5-15 Platelet Count 252 10^3/uL 150-450 Mean Platelet Volume 9 um3 7.4-10.4 Laboratory test finding 04/07/2012 Cytology RUN DATE: 04/08/ <SEE 50 NOTE> Urine DIP 04/07/2012 Leukocytes NEG Neg Urine Nitrites NEG Neg Urine pH 5-6 5-6 Total Protein, Urine NEG Neg Urine Glucose NORM Norm Urine Ketones NEG Neg Urobilinogen NORM Norm Urine Bilirubin NEG Neg Urine Blood TRACE Neg Specific [place] N/A Low 1.01-1.02 Laboratory test finding 03/28/2011 Troponin-I 0 NG/ML 0-0.06 51 Comp Metabolic Panel 03/28/2011 Sodium 140 mmol/L 135-145 Potassium 3.7 mmol/L 3.5-5.0 Chloride 106 mmol/L 101-111 Co2 (Carbon Dioxide) 26.0 mmol/L 22-32 Anion Gap 8.0 mmol/L 2-11 52 Glucose 101 mg/dL High 70-100 BUN 13 mg/dL 6-24 Creatinine 0.8 mg/dL 0.50-1.40 One Over Creatinine 1.25 BUN/Creatinine Ratio 16.3 8-20 Calcium 9.6 mg/dL 8.1-9.9 Total Protein 7.6 GM/DL 6.2-8.1 Albumin 4.5 GM/DL 3.2-5.2 Globulin 3.1 GM/DL 2-4 Albumin/Globulin Ratio 1.5 1-3 Bilirubin Total 0.8 mg/dL 0.4-1.5 53 Alkaline Phosphatase 71 U/L 30-110 Alt (SGPT) 41 U/L 14-54 Ast (Sgot) 36 U/L 12-42 eGFR Non- 72.7 > 60 eGFR 93.5 > 60 54 CBC Auto Diff 03/28/2011 White Blood Count 3.1 CUMM Low 4.8-10.8 Red Cell Count 4.15 CUMM Low 4.2-5.4 Hemoglobin 14.3 g/dL 12.0-16.0 Hematocrit 40 % 35-47 Mean Corpuscular Volume 98 um3 High 79-97 Mean Corpuscular Hemoglob 34 pg High 27-31 Mean Corpuscular HGB Cone 35 g/dL 32-36 Redcell Distribution WDTH 13 % 10.5-15 Platelet Count 297 CUMM 150-450 Mean Platelet Volume 7.7 um3 7.4-10.4 Gran % 57.8 % 38-83 Lymph % 25.4 % 25-47 Mononuclear % 11.3 % High 1-9 Eosinophil % 3.3 % 0-6 Basophil % 2.2 % High 0-2 Abs Lymphs 0.8 Low 1.0-4.8 Abs Mononuclear 0.3 0-0.8 Absolute Neutrophil Count 1.8 1.5-7.7 Abs Eosinophils 0.1 0-0.6 Abs Basophils 0.1 0-0.2 55 Statin 01/29/2011 Ast (Sgot) 31 U/L 12-42 Alt (SGPT) 47 U/L 14-54 Lipid Profile (Trig/Chol/HDL) 01/29/2011 Triglyceride 184 mg/dL 40-200 Cholesterol 273 mg/dL High Less Than 200 56 High Density Lipoprotein 57 mg/dL 40-60 57 Cholesterol/HDL Ratio 4.79 AVERAGE High 1-4.44 Low Density Lipoprotein 179 mg/dL High Less Than 100 58 Lipid Profile (Trig/Chol/HDL) 12/24/2010 Triglyceride 354 mg/dL High 40- 200 Cholesterol 301 mg/dL High Less Than 200 59 High Density Lipoprotein 48 mg/dL 40-60 60 Cholesterol/HDL Ratio 6.27 AVERAGE High 1-4.44 Low Density Lipoprotein 182 mg/dL High Less Than 100 61 Liver Function Panel 12/24/2010 Total Protein 6.8 GM/DL 6.2-8.1 Albumin 4.4 GM/DL 3.2-5.2 Globulin 2.4 GM/DL 2-4 Albumin/Globulin Ratio 1.8 1-3 Bilirubin Total 0.8 mg/dL 0.4-1.5 62 Bilirubin Direct 0.1 mg/dL 0.1-0.5 Indirect Bilirubin 0.7 mg/dL 0.3-1.0 63 Alkaline Phosphatase 74 U/L 30-110 Alt (SGPT) 57 U/L High 14-54 Ast (Sgot) 38 U/L 12-42 Hepatitis Acute (CMC) 12/24/2010 Hepatitis C Antibody Nonreactive Nonreactive Hepatitis A AB Igm Nonreactive Nonreactive Hepatitis B Core Igm Nonreactive Nonreactive Hepatitis B Surface Ag Nonreactive Nonreactive Urine DIP 11/23/2010 Leukocytes + Neg Urine Nitrites NEG Neg Urine pH 5 5-6 Total Protein, Urine NEG Neg Urine Glucose NORM Norm Urine Ketones NEG Neg Urobilinogen NORM Norm Urine Bilirubin NEG Neg Urine Blood TRACE Neg Specific [place] NA Low 1.01-1.02 Laboratory test finding 11/21/2010 Hemoglobin A1c 5.9 % Less Than 6.0 64 Comp Metabolic Panel 11/21/2010 Sodium 141 mmol/L 135-145 Potassium 4.3 mmol/L 3.5-5.0 Chloride 104 mmol/L 101-111 Co2 (Carbon Dioxide) 29.0 mmol/L 22-32 Anion Gap 8.0 mmol/L 2-11 65 Glucose 100 mg/dL 70-100 BUN 13 mg/dL 6-24 Creatinine 0.80 mg/dL 0.50-1.40 One Over Creatinine 1.20 BUN/Creatinine Ratio 16.3 8-20 Calcium 9.9 mg/dL 8.1-9.9 Total Protein 7.0 GM/DL 6.2-8.1 Albumin 4.4 GM/DL 3.2-5.2 Globulin 2.6 GM/DL 2-4 Albumin/Globulin Ratio 1.7 1-3 Bilirubin Total 0.6 mg/dL 0.4-1.5 66 Alkaline Phosphatase 85 U/L 30-110 Alt (SGPT) 89 U/L High 14-54 Ast (Sgot) 58 U/L High 12-42 eGFR Non- 72.7 > 60 eGFR 93.5 > 60 67 Lipid Profile (Trig/Chol/HDL) 11/21/2010 Triglyceride 286 mg/dL High 40- 200 Cholesterol 346 mg/dL High Less Than 200 68 High Density Lipoprotein 57 mg/dL 40-60 69 Cholesterol/HDL Ratio 6.07 AVERAGE High 1-4.44 Low Density Lipoprotein 232 mg/dL High Less Than 100 70 Lipid Profile (Trig/Chol/HDL) 11/01/2009 Triglyceride 179 mg/dL 40-200 Cholesterol 297 mg/dL High Less Than 200 71 High Density Lipoprotein 64 mg/dL High 40-60 72 Cholesterol/HDL Ratio 4.64 AVERAGE High 1-4.44 Low Density Lipoprotein 197 mg/dL High Less Than 100 73 Statin 11/01/2009 Ast (Sgot) 33 U/L 12-42 Alt (SGPT) 42 U/L 14-54 Urine DIP 09/20/2009 Leukocytes NEG Neg Urine Nitrites NEG Neg Urine pH 5 5-6 Total Protein, Urine NEG Neg Urine Glucose NORM Norm Urine Ketones NEG Neg Urobilinogen NORM Norm Urine Bilirubin NEG Neg Urine Blood NEG Neg Specific [place] NA Low 1.01-1.02 Urine DIP 02/10/2008 Leukocytes NEG Neg Urine Nitrites NEG Neg Urine pH 5 5-6 Total Protein, Urine NEG Neg Urine Glucose NORM Norm Urine Ketones NEG Neg Urobilinogen NORM Norm Urine Bilirubin NEG Neg Urine Blood NEG Neg Specific [place] N/A Low 1.01-1.02 Urine DIP 12/23/2006 Leukocytes NEG Neg Urine Nitrites NEG Neg Urine pH 5 5-6 Total Protein, Urine NEG Neg Urine Glucose NORM Norm Urine Ketones NEG Neg Urobilinogen NORM Norm Urine Bilirubin NEG Neg Urine Blood TRACE Neg Specific [place] NA Low 1.01-1.02 CBC With Electronic Diff Stat 05/02/2006 White Blood Count 5.1 CUMM 4.8- 10.8 74 Abs Basophils 0 0-0.2 74 Abs Eosinophils 0.2 0-0.6 74 Absolute Neutrophil Count 2.8 1.5-7.7 74 Abs Lymphs 1.7 1.0-4.8 74 Abs Mononuclear 0.4 0-0.8 74 Basophil % 0.7 % 0-2 74 Hematocrit 38 % 35-47 74 Hemoglobin 13.6 g/dL 12.0-16.0 74 Eosinophil % 3.3 % 0-6 74 Gran % 54.3 % 38-83 74 Lymph % 33.1 % 20-45 74 Mean Corpuscular HGB Cone 36 g/dL 32-36 74 Mean Corpuscular Hemoglob 35 pg High 27-31 74 Mean Corpuscular Volume 97 um3 79-97 74 Mean Platelet Volume 7.7 um3 7.4-10.4 74 Mononuclear % 8.6 % 1-9 74 Platelet Count 309 CUMM 150-450 74 Red Cell Count 3.88 CUMM Low 4.2-5.4 74 Redcell Distribution WDTH 12 % 10.5-15 74 Basic Metabolic Panel 05/02/2006 One Over Creatinine 1.25 74 Anion Gap 6.0 mmol/L 2-11 74, 75 BUN 16 mg/dL 6-24 74 Calcium 9.8 mg/dL 8.7-10.2 74 Chloride 105 mmol/L 101-111 74 Co2 (Carbon Dioxide) 28.0 mmol/L 22-32 74 Glucose 124 mg/dL High 70-105 74 Potassium 4.3 mmol/L 3.5-5.0 74 Sodium 139 mmol/L 135-145 74 BUN/Creatinine Ratio 20.0 8-20 74 Creatinine 0.8 mg/dL 0.5-1.4 74 Laboratory test finding 05/02/2006 Troponin-I (TnI) 0.01 NG/ML 0-0.06 74 , 76 Comp Metabolic Panel 02/23/2004 Anion Gap 10.0 mmol/L 2-11 77 Albumin/Globulin Ratio 1.7 1-3 Albumin 4.6 GM/DL 3.6-5.4 Alkaline Phosphatase 66 U/L 30-110 Alt (SGPT) 15 U/L 14-54 Ast (Sgot) 19 U/L 12-42 BUN 14 mg/dL 6-24 Calcium 10.3 mg/dL High 8.7-10.2 Chloride 100 mmol/L Low 101-111 Co2 (Carbon Dioxide) 29.0 mmol/L 22-32 Creatinine 0.9 mg/dL 0.5-1.4 Globulin 2.7 GM/DL 2-4 Glucose 101 mg/dL 70-105 Potassium 4.0 mmol/L 3.5-5.0 Sodium 139 mmol/L 135-145 Bilirubin Total 0.6 mg/dL 0.4-1.5 Total Protein 7.3 GM/DL 6.2-8.1 BUN/Creatinine Ratio 15.6 8-20 CBC With Electronic Diff 02/23/2004 White Blood Count 5.6 CUMM 4.8-10.8 Abs Basophils 0 0-0.2 Abs Eosinophils 0 0-0.6 Abs Grans 4.5 1.5-7.7 Abs Lymphs 0.8 Low 1.0-4.8 Abs Mononuclear 0.3 0-0.8 Basophil % 0.3 % 0-2 Hematocrit 43 % 35-47 Hemoglobin 14.8 g/dL 12.0-16.0 Eosinophil % 0.1 % 0-6 Gran % 79.6 % 38-83 Lymph % 14.5 % Low 20-45 Mean Corpuscular HGB Cone 34 g/dL 32-36 Mean Corpuscular Hemoglob 33 pg High 27-31 Mean Corpuscular Volume 96 um3 79-97 Mean Platelet Volume 8.3 um3 7.4-10.4 Mononuclear % 5.5 % 1-9 Platelet Count 317 CUMM 150-450 Red Cell Count 4.50 CUMM 4.2-5.4 Redcell Distribution WDTH 13 % 10.5-15 Xray 09/24/2002 Dexascan-Spine SEE TRIAGE NOTE Hemoccult 09/22/2002 Stool-Occult Blood #1 NEG Neg Stool-Occult Blood #2 NEG Neg Stool-Occult Blood #3 NEG Neg CBC With Manual Diff 09/17/2002 Atypical Lymph 4 0-6 Anisocytosis SLIGHT Band Neutrophil 1 0-8 Basophil 1 0-2 Eosenophil 4 0-6 Lymphocyte 44 High 5-47 Monocyte 10 0-13 Polysegmented Neutrophil 36 Low 38-83 CBC With Electronic Diff 09/17/2002 Platelet Count 297 CUMM 150-450 White Blood Count 3.5 CUMM Low 4.8-10.8 Hematocrit 39 % 35-47 Hemoglobin 13.9 g/dL 12.0-16.0 Mean Corpuscular HGB Cone 35 g/dL 32-36 Mean Corpuscular Hemoglob 34 pg High 27-31 Mean Corpuscular Volume 95 um3 79-97 Mean Platelet Volume 8.1 um3 7.4-10.4 Red Cell Count 4.11 CUMM Low 4.2-5.4 Redcell Distribution WDTH 12 % 10.5-15 Comp Metabolic Panel 09/17/2002 Albumin/Globulin Ratio 1.3 1-3 Albumin 3.9 GM/DL 3.6-5.4 Alkaline Phosphatase 51 U/L 30-110 Alt (SGPT) 17 U/L 14-54 Ast (Sgot) 19 U/L 12-42 BUN 18 mg/dL 6-24 Calcium 8.9 mg/dL 8.7-10.2 Chloride 102 mmol/L 101-111 Co2 (Carbon Dioxide) 30.0 mmol/L 22-32 Creatinine 0.8 mg/dL 0.5-1.4 Globulin 3.0 GM/DL 2-4 Glucose 84 mg/dL 70-105 Potassium 4.2 mmol/L 3.5-5.0 Sodium 140 mmol/L 135-145 Bilirubin Total 0.6 mg/dL 0.4-1.5 Total Protein 6.9 GM/DL 6.2-8.1 BUN/Creatinine Ratio 22.5 High 8-20 Lipid Profile 09/17/2002 Cholesterol/HDL Ratio 3.56 AVERAGE 1-4.44 (Trig/Chol/HDL) Cholesterol 224 mg/dL High Less Than 200 78 Triglyceride 155 mg/dL 40-200 High Density Lipoprotein 63 mg/dL High 40-60 79 Low Density Lipoprotein 130 mg/dL High Less Than 100 80 Urine DIP 09/10/2002 Leukocytes NEG Neg Urine Nitrites NEG Neg Urine pH 6 5-6 Total Protein, Urine NEG Neg Urine Glucose NORM Norm Urine Ketones NEG Neg Urobolinogen NORM Norm Urine Bilirubin NEG Neg Urine Blood NEG Neg Urine DIP 03/18/2002 Leukocytes NEG Neg Urine Nitrites NEG Neg Urine pH 5 5-6 Total Protein, Urine NEG Neg Urine Glucose NORM Norm Urine Ketones NEG Neg Urobolinogen NORM Norm Urine Bilirubin NEG Neg Urine Blood 1+ High Neg 1 Because ethnic data is not always readily available, this report includes an eGFR for both -Americans and non- Americans. The National Kidney Disease Education Program (NKDEP) does not endorse the use of the MDRD equation for patients that are not between the ages of 18 and 70, are , have extremes of body size, muscle mass, or nutritional status, or are non- or non-. According to the National Kidney Foundation, irrespective of diagnosis, the stage of the disease is based on the level of kidney function: Stage Description GFR(mL/min/1.73 m(2)) 1 Kidney damage with normal or decreased GFR 90 2 Kidney damage with mild decrease in GFR 60-89 3 Moderate decrease in GFR 30-59 4 Severe decrease in GFR 15-29 5 Kidney failure <15 (or dialysis) 2 Desirable: <150 Borderline High: 150-199 High: 200-499 Very High: >500 3 Desirable: <200 Borderline High: 200-239 High: >239 4 Low: <40 Desirable: 40-60 High: >60 5 Desirable: <100 Near Optimal: 100-129 Borderline High: 130-159 High: 160-189 Very High: >189 6 [place] Severe Sepsis and Septic Shock Management Bundle Measure requires all lactic acids initially measuring >2.0 mmol/L be repeated. 7 Because ethnic data is not always readily available, this report includes an eGFR for both -Americans and non- Americans. The National Kidney Disease Education Program (NKDEP) does not endorse the use of the MDRD equation for patients that are not between the ages of 18 and 70, are , have extremes of body size, muscle mass, or nutritional status, or are non- or non-. According to the National Kidney Foundation, irrespective of diagnosis, the stage of the disease is based on the level of kidney function: Stage Description GFR(mL/min/1.73 m(2)) 1 Kidney damage with normal or decreased GFR 90 2 Kidney damage with mild decrease in GFR 60-89 3 Moderate decrease in GFR 30-59 4 Severe decrease in GFR 15-29 5 Kidney failure <15 (or dialysis) 8 [facility] Severe Sepsis and Septic Shock Management Bundle Measure requires all lactic acids initially measuring >2.0 mmol/L be repeated. 9 >100 to <200 pg/mL: likely compensated congestive heart failure (CHF) 200 to 400 pg/mL: likely moderate CHF >400 pg/mL: likely moderate to severe CHF 10 Because ethnic data is not always readily available, this report includes an eGFR for both -Americans and non- Americans. The National Kidney Disease Education Program (NKDEP) does not endorse the use of the MDRD equation for patients that are not between the ages of 18 and 70, are , have extremes of body size, muscle mass, or nutritional status, or are non- or non-. According to the National Kidney Foundation, irrespective of diagnosis, the stage of the disease is based on the level of kidney function: Stage Description GFR(mL/min/1.73 m(2)) 1 Kidney damage with normal or decreased GFR 90 2 Kidney damage with mild decrease in GFR 60-89 3 Moderate decrease in GFR 30-59 4 Severe decrease in GFR 15-29 5 Kidney failure <15 (or dialysis) 11 Because ethnic data is not always readily available, this report includes an eGFR for both -Americans and non- Americans. The National Kidney Disease Education Program (NKDEP) does not endorse the use of the MDRD equation for patients that are not between the ages of 18 and 70, are , have extremes of body size, muscle mass, or nutritional status, or are non- or non-. According to the National Kidney Foundation, irrespective of diagnosis, the stage of the disease is based on the level of kidney function: Stage Description GFR(mL/min/1.73 m(2)) 1 Kidney damage with normal or decreased GFR 90 2 Kidney damage with mild decrease in GFR 60-89 3 Moderate decrease in GFR 30-59 4 Severe decrease in GFR 15-29 5 Kidney failure <15 (or dialysis) 12 Desirable <150 Borderline high 150-199 High 200-499 Very High >500 13 Desirable <200 Borderline high 200-239 High >239 14 Low <40 Desirable: 40-60 High: >60 15 Desirable: <100 mg/dL Near Optimal: 100-129 mg/dL Borderline High: 130-159 mg/dL High: 160-189 mg/dL Very High: >189 mg/dL 16 Because ethnic data is not always readily available, this report includes an eGFR for both -Americans and non- Americans. The National Kidney Disease Education Program (NKDEP) does not endorse the use of the MDRD equation for patients that are not between the ages of 18 and 70, are , have extremes of body size, muscle mass, or nutritional status, or are non- or non-. According to the National Kidney Foundation, irrespective of diagnosis, the stage of the disease is based on the level of kidney function: Stage Description GFR(mL/min/1.73 m(2)) 1 Kidney damage with normal or decreased GFR 90 2 Kidney damage with mild decrease in GFR 60-89 3 Moderate decrease in GFR 30-59 4 Severe decrease in GFR 15-29 5 Kidney failure <15 (or dialysis) 17 Desirable <150 Borderline high 150-199 High 200-499 Very High >500 18 Desirable <200 Borderline high 200-239 High >239 19 Low <40 Desirable: 40-60 High: >60 20 Desirable: <100 mg/dL Near Optimal: 100-129 mg/dL Borderline High: 130-159 mg/dL High: 160-189 mg/dL Very High: >189 mg/dL 21 Because ethnic data is not always readily available, this report includes an eGFR for both -Americans and non- Americans. The National Kidney Disease Education Program (NKDEP) does not endorse the use of the MDRD equation for patients that are not between the ages of 18 and 70, are , have extremes of body size, muscle mass, or nutritional status, or are non- or non-. According to the National Kidney Foundation, irrespective of diagnosis, the stage of the disease is based on the level of kidney function: Stage Description GFR(mL/min/1.73 m(2)) 1 Kidney damage with normal or decreased GFR 90 2 Kidney damage with mild decrease in GFR 60-89 3 Moderate decrease in GFR 30-59 4 Severe decrease in GFR 15-29 5 Kidney failure <15 (or dialysis) 22 [MG] affected by ICTERUS 23 Reference Range and Interpretation: TnI (ng/mL) Interpretation Less Than 0.03 ng/mL Not supportive of diagnosis of DE 0.03 - 0.50 ng/mL Indeterminate: suggest serial studies if clinically indicated. Greater than 0.5 ng/mL Consistent with diagnosis of DE 24 Acute inflammation: >10.00 25 Because ethnic data is not always readily available, this report includes an eGFR for both -Americans and non- Americans. The National Kidney Disease Education Program (NKDEP) does not endorse the use of the MDRD equation for patients that are not between the ages of 18 and 70, are , have extremes of body size, muscle mass, or nutritional status, or are non- or non-. According to the National Kidney Foundation, irrespective of diagnosis, the stage of the disease is based on the level of kidney function: Stage Description GFR(mL/min/1.73 m(2)) 1 Kidney damage with normal or decreased GFR 90 2 Kidney damage with mild decrease in GFR 60-89 3 Moderate decrease in GFR 30-59 4 Severe decrease in GFR 15-29 5 Kidney failure <15 (or dialysis) 26 Reference Range and Interpretation: TnI (ng/mL) Interpretation Less Than 0.03 ng/mL Not supportive of diagnosis of DE 0.03 - 0.50 ng/mL Indeterminate: suggest serial studies if clinically indicated. Greater than 0.5 ng/mL Consistent with diagnosis of DE 27 FASTING 8 HOUR ~~1548.FASTING 8 HOUR 28 Desirable <150 Borderline high 150-199 High 200-499 Very High >500 29 Desirable <200 Borderline high 200-239 High >239 30 Low <40 Desirable: 40-60 High: >60 31 Desirable <100 Near Optimal 100-129 Borderline high 130-159 High 160-189 Very High >189 32 Because ethnic data is not always readily available, this report includes an eGFR for both -Americans and non- Americans. The National Kidney Disease Education Program (NKDEP) does not endorse the use of the MDRD equation for patients that are not between the ages of 18 and 70, are , have extremes of body size, muscle mass, or nutritional status, or are non- or non-. According to the National Kidney Foundation, irrespective of diagnosis, the stage of the disease is based on the level of kidney function: Stage Description GFR(mL/min/1.73 m(2)) 1 Kidney damage with normal or decreased GFR 90 2 Kidney damage with mild decrease in GFR 60-89 3 Moderate decrease in GFR 30-59 4 Severe decrease in GFR 15-29 5 Kidney failure <15 (or dialysis) 33 FASTING 8 HOUR 34 Test Performed by: [place] [id number] Veneer Matcher: Jules Bowman M.D. 35 FASTING 10 HOUR 36 FASTING 10 HOUR 37 HDL Interpretation: Undesirable: High Risk: Less than 40 mg/dL Desirable: Low Risk: Greater than 60 mg/dL 38 LDL Interpretation: Low Risk Optimal Level: LDL Less than 100 mg/dL Near or Above Optimal: LDL 100-129 mg/dL Borderline High Risk: LDL 130-159 mg/dL High Risk: LDL 160-189 mg/dL Very High Risk: LDL Greater than 189 mg/dL 39 HDL Interpretation: Undesirable: High Risk: Less than 40 mg/dL Desirable: Low Risk: Greater than 60 mg/dL 40 LDL Interpretation: Low Risk Optimal Level: LDL Less than 100 mg/dL Near or Above Optimal: LDL 100-129 mg/dL Borderline High Risk: LDL 130-159 mg/dL High Risk: LDL 160-189 mg/dL Very High Risk: LDL Greater than 189 mg/dL 41 Because ethnic data is not always readily available, this report includes an eGFR for both -Americans and non- Americans. The National Kidney Disease Education Program (NKDEP) does not endorse the use of the MDRD equation for patients that are not between the ages of 18 and 70, are , have extremes of body size, muscle mass, or nutritional status, or are non- or non-. According to the National Kidney Foundation, irrespective of diagnosis, the stage of the disease is based on the level of kidney function: Stage Description GFR(mL/min/1.73 m(2)) 1 Kidney damage with normal or decreased GFR 90 2 Kidney damage with mild decrease in GFR 60-89 3 Moderate decrease in GFR 30-59 4 Severe decrease in GFR 15-29 5 Kidney failure <15 (or dialysis) 42 FASTING 8 HOUR 43 Test Performed by: [address] [id number] Veneer Matcher: Rich Ramirez III, M.D. 44 -- REFERENCE VALUE -- 25-HYDROXY D TOTAL (D2+D3) Optimum levels in the normal population are 25-80 Test Performed by: [address] [address] [address] Veneer Matcher: iRch Ramirez III, M.D. R 45 FASTING 10 HOUR 46 HDL Interpretation: Undesirable: High Risk: Less than 40 MG/DL Desirable: Low Risk: Greater than 60 MG/DL 47 LDL Interpretation: Low Risk Optimal Level: LDL Less than 100 MG/DL Near or Above Optimal: LDL 100-129 MG/DL Borderline High Risk: LDL 130-159 MG/DL High Risk: LDL 160-189 MG/DL Very High Risk: LDL Greater than 189 MG/DL 48 A metabolite of Naproxen, O-desmethylnaproxen, has been shown to interfere with the Jengirmaik-Ciales method for measuring total bilirubin. Samples from patients who have taken Naproxen have shown spurious elevation in total bilirubin levels. 49 Because ethnic data is not always readily available, this report includes an eGFR for both -Americans and non- Americans. The National Kidney Disease Education Program (NKDEP) does not endorse the use of the MDRD equation for patients that are not between the ages of 18 and 70, are , have extremes of body size, muscle mass, or nutritional status, or are non- or non-. According to the National Kidney Foundation, irrespective of diagnosis, the stage of the disease is based on the level of kidney function: Stage Description GFR(mL/min/1.73 m(2)) 1 Kidney damage with normal or decreased GFR 90 2 Kidney damage with mild decrease in GFR 60-89 3 Moderate decrease in GFR 30-59 4 Severe decrease in GFR 15-29 5 Kidney failure <15 (or dialysis) 50 RUN DATE: 04/08/12 [facility] LAB LIVE PAGE 1 RUN TIME: [address] [place] [id number] Specimen Inquiry Name: CHIOMA TREJO : [address]: Sofy Salazar MD Acct: [id number] Unit: [id number] AGE: 61 Location: [facility] Re04/07/12 SEX: F Status: REG REF SPEC: [id number] DYLON: 04/07/[address]: Sofy Salazar MD REQ: [id number] RECD: 04/08/12 STATUS: SOUT _ ORDERED: IMAGE ANALYSIS, PAP SM PATH REV Negative for Intraepithelial lesion or Malignancy Reactive cellular changes associated with Atrophy with inflammation ("atrophic vaginitis") A. Ectocervical/Endocervical Specimen Adequacy: Satisfactory of evaluation Transformation zone component cannot be definitely identified due to presence of atrophy or other hormonal changes Predominance of white blood cells Patient Information: HPV: Thin Layer Pap Test w/reflex to high risk HPV DNA testing when ASCUS Actual Specimen Date: 04/07/12 Post Menopausal?: Y Signed (signature on file) Jamal Singh MD 3605 This Pap test was evaluated with the assistance of the ThinPrep Test Imaging System. Due to cytologic findings at the art therapist microscope, comprehensive manual rescreening by a Nurse Substance Abuse may be required. The Pap Smear is a screening test designed to aid in the detection of premalignant and malignant conditions of the uterine cervix. It is not a diagnostic procedure and should not be used as the sole means of detecting cervical cancer. Both false- positive and false- negative reports do occur. Depending on your risk status, a Pap smear shoudl be obtained and evaluated every 1-3 years. END OF REPORT * ML=Testing performed at Main Lab DEPARTMENT OF PATHOLOGY, [address] [place] [address] Jamal Singh M.D. Director [facility] Permit #[id number] New Reference Range and Interpretation effective 02/19/2002 TnI (ng/ml) INTERPRETATION Less Than 0.06 ng/mL NOT SUPPORTIVE OF DIAGNOSIS OF DE 0.06 - 0.50 ng/ml INDETERMINATE: SUGGEST SERIAL STUDIES IF CLINICALLY INDICATED. Greater than 0.5 ng/mL CONSISTENT WITH DIAGNOSIS OF DE . 52 Anion gap measurement may be of limited value in the presence of any alkalosis, especially in a combined acid base disorder. . 53 A metabolite of Naproxen, O-desmethylnaproxen, has been shown to interfere with the Jengirmaik-Ciales method for measuring total bilirubin. Samples from patients who have taken Naproxen have shown spurious elevation in total bilirubin levels. 54 Because ethnic data is not always readily available, this report includes an eGFR for both -Americans and non- Americans. The National Kidney Disease Education Program (NKDEP) does not endorse the use of the MDRD equation for patients that are not between the ages of 18 and 70, are , have extremes of body size, muscle mass, or nutritional status, or are non- or non-. According to the National Kidney Foundation, irrespective of diagnosis, the stage of the disease is based on the level of kidney function: Stage Description GFR(mL/min/1.73 m(2)) 1 Kidney damage with normal or decreased GFR 90 2 Kidney damage with mild decrease in GFR 60-89 3 Moderate decrease in GFR 30-59 4 Severe decrease in GFR 15-29 5 Kidney failure <15 (or dialysis) 55 Basophilia % 56 CHOLESTEROL INTERPRETATION: Desirable: Less than 200 MG/DL Borderline-High Risk: 200-239 MG/DL High-Risk: 240 MG/DL and over 57 HDL INTERPRETATION: Undesirable: High Risk: Less than 40 MG/DL Desirable: Low Risk: Greater than 60 MG/DL 58 LDL INTERPRETATION: Low Risk Optimal Level: LDL Less than 100 MG/DL Near or Above Optimal: LDL 100-129 MG/DL Borderline High Risk: LDL 130-159 MG/DL High Risk: LDL 160-189 MG/DL Very High Risk: LDL Greater than 189 MG/DL 59 CHOLESTEROL INTERPRETATION: Desirable: Less than 200 MG/DL Borderline-High Risk: 200-239 MG/DL High-Risk: 240 MG/DL and over 60 HDL INTERPRETATION: Undesirable: High Risk: Less than 40 MG/DL Desirable: Low Risk: Greater than 60 MG/DL 61 LDL INTERPRETATION: Low Risk Optimal Level: LDL Less than 100 MG/DL Near or Above Optimal: LDL 100-129 MG/DL Borderline High Risk: LDL 130-159 MG/DL High Risk: LDL 160-189 MG/DL Very High Risk: LDL Greater than 189 MG/DL 62 A metabolite of Naproxen, O-desmethylnaproxen, has been shown to interfere with the Jendrassik-Ciales method for measuring total bilirubin. Samples from patients who have taken Naproxen have shown spurious elevation in total bilirubin levels. 63 Please note updated reference range, effective 12/07/09 64 THERAPEUTIC TARGET FOR THE TREATMENT OF DIABETES MELLITUS PATIENTS IS <7% HBA1C, AND IN SELECTIVE PATIENTS <6.0%. PLEASE REFER TO [employer] DIABETIC CARE GUIDELINES FOR FURTHER INFORMATION. 65 Anion gap measurement may be of limited value in the presence of any alkalosis, especially in a combined acid base disorder. . 66 A metabolite of Naproxen, O-desmethylnaproxen, has been shown to interfere with the Jendrassik-Ciales method for measuring total bilirubin. Samples from patients who have taken Naproxen have shown spurious elevation in total bilirubin levels. 67 Because ethnic data is not always readily available, this report includes an eGFR for both -Americans and non- Americans. The National Kidney Disease Education Program (NKDEP) does not endorse the use of the MDRD equation for patients that are not between the ages of 18 and 70, are , have extremes of body size, muscle mass, or nutritional status, or are non- or non-. According to the National Kidney Foundation, irrespective of diagnosis, the stage of the disease is based on the level of kidney function: Stage Description GFR(mL/min/1.73 m(2)) 1 Kidney damage with normal or decreased GFR 90 2 Kidney damage with mild decrease in GFR 60-89 3 Moderate decrease in GFR 30-59 4 Severe decrease in GFR 15-29 5 Kidney failure <15 (or dialysis) 68 CHOLESTEROL INTERPRETATION: Desirable: Less than 200 MG/DL Borderline-High Risk: 200-239 MG/DL High-Risk: 240 MG/DL and over 69 HDL INTERPRETATION: Undesirable: High Risk: Less than 40 MG/DL Desirable: Low Risk: Greater than 60 MG/DL 70 LDL INTERPRETATION: Low Risk Optimal Level: LDL Less than 100 MG/DL Near or Above Optimal: LDL 100-129 MG/DL Borderline High Risk: LDL 130-159 MG/DL High Risk: LDL 160-189 MG/DL Very High Risk: LDL Greater than 189 MG/DL 71 CHOLESTEROL INTERPRETATION: Desirable: Less than 200 MG/DL Borderline-High Risk: 200-239 MG/DL High-Risk: 240 MG/DL and over 72 HDL INTERPRETATION: Undesirable: High Risk: Less than 40 MG/DL Desirable: Low Risk: Greater than 60 MG/DL 73 LDL INTERPRETATION: Low Risk Optimal Level: LDL Less than 100 MG/DL Near or Above Optimal: LDL 100-129 MG/DL Borderline High Risk: LDL 130-159 MG/DL High Risk: LDL 160-189 MG/DL Very High Risk: LDL Greater than 189 MG/DL 74 IS PATIENT A DIABETIC? N 75 Anion gap measurement may be of limited value in the presence of any alkalosis, especially in a combined acid base disorder. . 76 New Reference Range and Interpretation effective 02/19/02 TnI (ng/ml) INTERPRETATION <0.06 ng/ml NOT SUPPORTIVE OF DIAGNOSIS OF DE 0.06 - 0.50 ng/ml INDETERMINATE: SUGGEST SERIAL STUDIES IF CLINICALLY INDICATED. > 0.5 ng/ml CONSISTENT WITH DIAGNOSIS OF DE . 77 Anion gap measurement may be of limited value in the presence of any alkalosis, especially in a combined acid base disorder. . 78 Classification: Borderline High . 79 Classification: High . 80 CALCULATED LDL APPROXIMATES THE VALUE OF A DIRECT LDL MEASUREMENT. Classification: Borderline High . Procedures Date CPT Code Description Status 11/16/2014 Mammogram Completed 05/19/2014 Bone Mineral Density Test Completed 03/17/2014 98344 Acupuncture One Or More Needle W/Out Electrical Stim Completed Initial 15MI 03/10/2014 10718 Acupuncture One Or More Needle W/Out Electrical Stim Completed Initial 15MI 03/03/2014 05490 Acupuncture One Or More Needle W/Out Electrical Stim Completed Initial 15MI 02/24/2014 01539 Acupuncture One Or More Needle W/Out Electrical Stim Completed Initial 15MI 02/18/2014 63062 Acupuncture One Or More Needle W/Out Electrical Stim Completed Initial 15MI 02/10/2014 61194 Acupuncture One Or More Needle W/Out Electrical Stim Completed Initial 15MI 01/27/2014 29121 Acupuncture One Or More Needle W/Out Electrical Stim Completed Initial 15MI 01/21/2014 92040 Acupuncture One Or More Needle W/Out Electrical Stim Completed Initial 15MI 12/09/2013 99135 Acupuncture One Or More Needle W/Out Electrical Stim Completed Initial 15MI 11/23/2010 58719 EKG, at Least 12 Leads w/Interpretation and Report Completed 02/23/2004 29009 EKG, at Least 12 Leads w/Interpretation and Report Completed Encounters Type Date Location Provider CPT E/M Dx Office Visit 04/30/2017 8:00a Main Office AMANDA Goss 05777 Z00.00 E78.00 I10 Z12.31 Office Visit 05/07/2016 8:00a Main Office AMANDA Goss 35804 Z00.00 Z12.31 Z23 Office Visit 05/03/2015 8:00a Main Office AMANDA Goss G0438 Z00.00 E78.0 I10 Z23 Office Visit 10/31/2014 3:15p Main Office Laura Cummins [facility] 61761 272.0 401.9 V76.12 Office Visit 08/19/2014 8:00a Main Office Laura Cummins [facility] 52409 785.1 Office Visit 05/02/2014 10:30a Main Office Mely Decker M.D. 26095 V70.0 272.0 401.9 Office Visit 12/03/2013 10:00a Main Office Mely Decker M.D. 11455 728.85 Office Visit 07/05/2013 9:45a Main Office Mely Decker M.D. 45859 272.0 401.9 Office Visit 04/02/2013 9:00a Main Office Mely Decker M.D. G0439 V70.0 272.0 401.9 728.85 Office Visit 04/07/2012 9:00a Main Office Sofy Salazar M.D. 42912 V70.0 401.9 272.0 Office Visit 11/23/2010 1:30p Main Office Sofy Salazar M.D. 87520 V70.0 272.0 401.9 573.3 Office Visit 09/20/2009 9:30a Main Office Sofy Salazar M.D. 00640 V70.0 401.9 627.2 Office Visit 06/07/2008 11:15a Main Office Sofy Salazar M.D. 45773 784.0 461.1 Office Visit 02/10/2008 9:30a Main Office Sofy Salazar M.D. 93802 V72.31 V70.0 401.9 272.0 300.00 V06.8 Office Visit 12/23/2006 12:30p Main Office Sofy Salazar M.D. 06813 V72.31 V70.0 401.9 272.0 300.00 Office Visit 07/18/2006 9:15a Main Office Sade RodriguezCBranden 03658 527.2 Office Visit 05/21/2006 8:00a Main Office Sofy Salazar M.D. 68293 300.00 309.1 Office Visit 05/09/2006 11:45a Main Office Barbara ARachel LindquistN.P.CBranden 85657 300.02 Office Visit 12/19/2004 1:30p Main Office Sofy Salazar M.D. 29822 V70.0 346.20 272.0 401.9 Office Visit 05/29/2004 10:00a Main Office Sofy Salazar M.D. 52773 300.02 Office Visit 05/08/2004 2:45p Main Office Mumtaz Arteaga M.D. 01951 300.02 536.8 Office Visit 04/23/2004 2:15p Main Office Sofy Salazar M.D. 85048 536.8 300.02 Office Visit 04/18/2004 3:15p Main Office Sofy Salazar M.D. 11163 300.00 785.1 401.9 272.0 Office Visit 02/23/2004 11:45a Main Office Mumtaz Arteaga M.D. 78710 785.1 780.4 Office Visit 07/08/2003 10:15a Main Office Sofy Salazar M.D. 76652 627.9 Office Visit 09/10/2002 10:15a Main Office Sofy Salazar M.D. 68702 V70.0 627.2 716.90 401.9 272.0 Office Visit 03/18/2002 11:45a [place] [address] 599.0 Plan of Care Future Appointment(s):07/29/2017 8:45 am - AMANDA Goss at Main Xcodcz5904/30/2017 - JORGE Goss-CZ00.00 Encntr for general adult medical exam w/o abnormal findingsComments:Labs completed prior to appointment, results reviewed with patient. Discussed diet and nutrition, healthy portions, fruits and vegetables, low carb foods and caloric mbqyiirT19.00 Pure hypercholesterolemia, [id number] Essential (primary) hypertensionFollow up: 3 mon follow up for afib, htn, yrbmqW06.31 Encntr screen mammogram for malignant neoplasm of breastNew Xrays:Mammography, Screening; BilateralFollow up :schedule Mammo
[2017-06-08 14:44] LABS: ABS Basophils 0 10^3/ul (0-0.2); ABS Eosinophils 0.1 10^3/ul (0-0.6); ABS Lymphocytes 1.2 10^3/ul (1.0-4.8); ABS Monocytes 0.5 10^3/ul (0-0.8); ABS Nucleated RBC 0 10^3/ul; Eosinophil % 2.8 % (0-6); Hematocrit 40 % (35-47); Hemoglobin 13.6 g/dl (12.0-16.0); Lymphocyte % 24.9 % (25-47); Mean Corpuscular HGB Conc 34 g/dl (31-36); Mean Corpuscular Hemoglobin 33 pg (27-31); Mean Corpuscular Volume 99 fL (80-97); Mean Platelet Volume 8 um3 (7.4-10.4); Nucleated Red Blood Cells % 0.1; Platelet Count 252 10^3/ul (150-450); Red Blood Count 4.07 10^6/ul (4.0-5.4); Red Cell Distribution Width 13 % (10.5-15); White Blood Count 4.9 10^3/ul (3.5-10.8)
[2017-06-08 14:58] LABS: EGFR Non-African American 63.9 (>60)
--- NOTE | 2017-06-08 14:59 | RAD ---
HISTORY: Chest pain COMPARISONS: March 30, 2017 VIEWS: 4: Frontal dual-energy and lateral views of the chest. FINDINGS: CARDIOMEDIASTINAL SILHOUETTE: The cardiomediastinal silhouette is normal. DUNG: The dung are normal. PLEURA: The costophrenic angles are sharp. No pleural abnormalities are noted. LUNG PARENCHYMA: The lungs are clear. ABDOMEN: The upper abdomen is clear. There is no subphrenic gas. BONES AND SOFT TISSUES: No bone or soft tissue abnormalities are noted. OTHER: None. IMPRESSION: NO ACTIVE CARDIOPULMONARY DISEASE.
[2017-06-08] MEDS ORDERED: Al Hydrox/Mg Hydrox/Simet LIQ* 30 ML UDC PO ONE (16:00)
[2017-06-08] MEDS ORDERED: Lidocaine 2% VISCOUS* 15 ML UDC PO ONE (16:00)
[2017-06-08 16:24] LABS: Urine Appearance Clear; Urine Blood 1+ (Negative); Urine Color Yellow; Urine Ketones Negative (Negative); Urine Protein Negative (Negative); Urine Specific Gravity 1.018 (1.010-1.030); Urine Urobilinogen Negative (Negative)
[2017-06-08 18:12] VITALS: BP 146/77
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
== END 2017-06-08 18:22 | disposition home or self-care (01) ==
LOC: ED 14:14
DX: R07.89 Other chest pain (principal); K21.9 Gastro-esophageal reflux disease without esophagitis; I10 Essential (primary) hypertension; E78.00 Pure hypercholesterolemia, unspecified; F41.9 Anxiety disorder, unspecified; Z87.891 Personal history of nicotine dependence
CPT/HCPCS: 36415; 71046; 80053; 81003; 81015; 82550; 82553; 83605; 83880; 84443; 84484; 85025; 93005; 99282; A9270-GY

== ENCOUNTER → 2017-12-16 08:46 | Day surgery (SDC) | payer MEDICARE ==
[~2017-12-16 08:46] MED LIST: Acetaminophen TAB* 325 MG PO PRN; Buffered Lidocaine 0.9% SYRIN* 5 ML/SYR SYRINGE INTRADERM ONE; Cyclopentolate 1% OPTH.SOL* 2 ML BTL ONE; Ketorolac 0.5% OPHTH (NF) 0.5 % 5 ML BTL ONE; Lidocaine 1%* 5 ML VIAL ONE; Midazolam* 1 MG/ML 2 ML VIAL (2 MG) ONE; Neomycin/Polymy/Dex OPHTH.OIN* 3.5 GM ONE; Phenylephrine 2.5% OPTH.SOL* 2 ML BTL ONE; Tetracaine 0.5% OPTH.SOL 4 ML* 1 DROP BTL ONE; Tropicamide 1% OPTH.SOL* BTL ONE; fentaNYL* 50 MCG/ML 2 ML VIAL (100 MCG VIAL) ONE
[2017-12-16 10:24] VITALS: BP 141/78
--- NOTE | 2017-12-17 03:23 | OP ---
DATE OF OPERATION: 12/16/17 [facility] DATE OF : 46 SURGEON: Dr. Amish Tineo. FOURTH GRADE TEACHER: None. ANESTHESIA: Topical with intravenous sedation. PRE-OP DIAGNOSIS: Cataract, right eye. POST-OP DIAGNOSIS: Cataract, right eye. OPERATIVE PROCEDURE: Phacoemulsification and cataract extraction with posterior chamber intraocular lens implant, right eye. COMPLICATIONS: None. BLOOD LOSS: None. DESCRIPTION OF PROCEDURE: The patient was brought to the operating room and received a small amount of intravenous sedation. A drop of Tetracaine was placed in her right eye. The patient was prepped and draped in the usual sterile fashion for ophthalmic surgery and attention was directed to the right eye where a speculum was placed. A paracentesis was created at the 11 o'clock position and 0.1 cc of 1 percent preservative-free Lidocaine was injected into the anterior chamber followed by DisCoVisc. The eye was digitally stabilized while a 2.75 mm keratome was used to create a triplanar clear corneal incision at the 9 o'clock position. A continuous curvilinear capsulorrhexis was created with a cystotome and Utrata forceps. BSS on a cannula was used to hydrodissect the lens from the capsule. Phacoemulsification was performed in a divide-and- conquer technique to create four fragments which were removed. Residual cortical material was removed with irrigation and aspiration. DisCoVisc was used to inflate the capsular bag and an AU00T0 21.5 diopter lens was folded and inserted into the capsular bag. DisCoVisc was removed using irrigation and aspiration. BSS on a cannula was used to hydrate the corneal stroma and seal the wound. At the end of the case the pupil was round and the lens was centered. The eye was of normal pressure and the wound was water tight. The speculum was removed and topical Maxitrol ointment was placed on the surface of the eye. The eye was closed, patched and shielded and the patient was sent to the recovery room in stable condition with post operative instructions and follow-up appointment given. [id number]/CPS #: [id number] NINFA
== END | disposition home or self-care (01) ==
LOC: OREAST 08:46
PROVIDERS: ATTEND Ophthalmology
DX: H25.11 Age-related nuclear cataract, right eye (principal); I10 Essential (primary) hypertension; F41.9 Anxiety disorder, unspecified; E78.00 Pure hypercholesterolemia, unspecified; K21.9 Gastro-esophageal reflux disease without esophagitis; Z87.891 Personal history of nicotine dependence; I48.91 Unspecified atrial fibrillation; Z79.01 Long term (current) use of anticoagulants
CPT/HCPCS: A9270-GY; J2250; J3010; V2632

== ENCOUNTER 2017-12-23 06:50 | Day surgery (SDC) | payer MEDICARE ==
[~2017-12-23 06:50] MED LIST changes: -Cyclopentolate 1% OPTH.SOL* 2 ML BTL ONE; -Ketorolac 0.5% OPHTH (NF) 0.5 % 5 ML BTL ONE; -Lidocaine 1%* 5 ML VIAL ONE; -Midazolam* 1 MG/ML 2 ML VIAL (2 MG) ONE; -Neomycin/Polymy/Dex OPHTH.OIN* 3.5 GM ONE; -Phenylephrine 2.5% OPTH.SOL* 2 ML BTL ONE; -Tetracaine 0.5% OPTH.SOL 4 ML* 1 DROP BTL ONE; -Tropicamide 1% OPTH.SOL* BTL ONE; -fentaNYL* 50 MCG/ML 2 ML VIAL (100 MCG VIAL) ONE
[2017-12-23] MEDS ORDERED: fentaNYL* 50 MCG/ML 2 ML VIAL (100 MCG VIAL) ONE (08:22)
[2017-12-23] MEDS ORDERED: Midazolam* 1 MG/ML 2 ML VIAL (2 MG) ONE (08:22)
[2017-12-23] MEDS ORDERED: Propofol* 10 MG/ML 20 ML BTL IV PUSH ONE (08:25)
[2017-12-23 09:05] VITALS: BP 140/77
--- NOTE | 2017-12-23 10:31 | OP ---
DATE OF OPERATION: 12/23/17 [facility] DATE OF : 46 SURGEON: Dr. Amish Tineo. PRESIDENT AND CMO: None. ANESTHESIA: Topical with intravenous sedation. PRE-OP DIAGNOSIS: Cataract, left eye. POST-OP DIAGNOSIS: Cataract, left eye. OPERATIVE PROCEDURE: Phacoemulsification and cataract extraction with posterior chamber intraocular lens implant, left eye. COMPLICATIONS: None. BLOOD LOSS: None. DESCRIPTION OF PROCEDURE: The patient was brought to the operating room and received a small amount of intravenous sedation. A drop of Tetracaine was placed in her left eye. She was prepped and draped in the usual sterile fashion for ophthalmic surgery and attention was directed to the left eye where a speculum was placed. A paracentesis was created at the 5 o'clock position and 0.1 cc of 1 percent preservative-free Lidocaine was injected into the anterior chamber followed by DisCoVisc. The eye was digitally stabilized while a 2.75 mm keratome was used to create a triplanar clear corneal incision at the 3 o'clock position. A continuous curvilinear capsulorrhexis was created with a cystotome and Utrata forceps. BSS on a cannula was used to hydrodissect the lens from the capsule. Phacoemulsification was performed in a divide-and- conquer technique to create four fragments which were removed. Residual cortical material was removed with irrigation and aspiration. DisCoVisc was used to inflate the capsular bag and an AU00T0 21.0 diopter lens was folded and inserted into the capsular bag. DisCoVisc was removed using irrigation and aspiration. BSS on a cannula was used to hydrate the corneal stroma and seal the wound. At the end of the case the pupil was round and the lens was centered. The eye was of normal pressure and the wound was water tight. The speculum was removed and topical Maxitrol ointment was placed on the surface of the eye. The eye was closed, patched and shielded and the patient was sent to the recovery room in stable condition with post operative instructions and follow-up appointment given. [id number]/CPS #: [id number] NINFA
[2017-12-23] MEDS ORDERED: Phenylephrine 2.5% OPTH.SOL* 2 ML BTL ONE (13:19)
[2017-12-23] MEDS ORDERED: Ketorolac 0.5% OPHTH (NF) 0.5 % 5 ML BTL ONE (13:19)
[2017-12-23] MEDS ORDERED: Tropicamide 1% OPTH.SOL* BTL ONE (13:19)
[2017-12-23] MEDS ORDERED: Tetracaine 0.5% OPTH.SOL 4 ML* 1 DROP BTL ONE (13:19)
[2017-12-23] MEDS ORDERED: Neomycin/Polymy/Dex OPHTH.OIN* 3.5 GM ONE (13:19)
[2017-12-23] MEDS ORDERED: Lidocaine 1%* 5 ML VIAL ONE (13:19)
[2017-12-23] MEDS ORDERED: Cyclopentolate 1% OPTH.SOL* 2 ML BTL ONE (13:19)
== END 2017-12-23 08:58 | disposition home or self-care (01) ==
LOC: OREAST 06:50
PROVIDERS: ATTEND Ophthalmology
DX: H25.12 Age-related nuclear cataract, left eye (principal); I10 Essential (primary) hypertension; E78.00 Pure hypercholesterolemia, unspecified; K21.9 Gastro-esophageal reflux disease without esophagitis; F41.9 Anxiety disorder, unspecified; I48.91 Unspecified atrial fibrillation; Z79.01 Long term (current) use of anticoagulants; I08.1 Rheumatic disorders of both mitral and tricuspid valves; Z87.891 Personal history of nicotine dependence
CPT/HCPCS: A9270-GY; J2250; J2704; J3010; V2632

== ENCOUNTER 2018-02-06 07:58 | Observation (INO) | payer MEDICARE ==
--- NOTE | 2018-02-06 08:38 | ED ---
Palpitations / Dysrhythmia - HPI Summary HPI Summary: A 67 y/o F presents to ED with c/o racing palpitations onset this AM approx 0630. Associated sx: nausea, chest pressure described as "fullness," burping. Denies: v/d, cough. PMHx: afib. She takes Xarelto. Denies medication changes as well as any recent life changes. Sees Dr. Payan, director foundation but needs to switch as he is no longer seeing patients in office. She states her was recently dx with major health issues over the past year. She notes being up with the puppy during the night and not feeling completely at baseline at that time approx 0300. Pt last ate half a container of yogurt and sips of coffee at approx 0700. - History of Current Complaint Chief Complaint: EDDysrhythmPalp Time Seen by Provider: 02/06/18 08:21 Hx Obtained From: Patient Onset/Duration: Gradual Onset, Lasting Hours, Still Present Severity Initially: Moderate Severity Currently: Moderate Character: Fast Associated Signs & Symptoms: Chest Pain - chest pressure described as "fullness ", Nausea - Allergy/Home Medications Allergies/Adverse Reactions: Allergies Allergy/AdvReac Type Severity Reaction Status Date / Time citalopram Allergy Severe Agitation Verified 12/23/17 07:14 Penicillins Allergy Rash Verified 12/23/17 07:14 sulfamethoxazole Allergy Rash Verified 12/23/17 07:14 [From Sulfamethoprim] trimethoprim Allergy Rash Verified 12/23/17 07:14 [From Sulfamethoprim] Environmental/Seasonal Allergy Mild Cough, Uncoded 12/23/17 07:14 Hayfever Post nasal drip Home Medications: Home Medications Famotidine TAB* [Pepcid 20 MG TAB*] 20 mg PO BID 02/06/18 [History Confirmed ] PMH/Surg Hx/FS Hx/Imm Hx Previously Healthy: No Endocrine/Hematology History: Denies: Hx Diabetes Cardiovascular History: Reports: Hx Hypercholesterolemia, Hx Hypertension - ON MEDS, Hx Rheumatic Fever - A CHILD, 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-pt states mild, Other Cardiovascular Problems /Disorders - PALPITATIONS, EPISODIC X10 YEARS Denies: Hx Angina, Hx Coronary Artery Disease, Hx Myocardial Infarction, Hx Pacemaker/ICD Respiratory History: Denies: Hx Asthma, Hx Chronic Obstructive Pulmonary Disease (COPD), Other Respiratory Problems/Disorders GI History: Reports: Hx Gastroesophageal Reflux Disease - pantoprazole, Hx Hiatal Hernia - small hiatal hernia Denies: Other GI Disorders History: Reports: Other Problems/Disorders - Nocturia x 2, states she drinks alot of liquids Musculoskeletal History: Reports: Hx Arthritis - feet, left knee and spine- upper and lower, Hx Tendonitis - Right wrist, Other Musculoskeletal History - cervical and lumbar disc disease Denies: Hx Osteoporosis Sensory History: Reports: Hx Cataracts - Bilateral, Hx Contacts or Glasses - glasses Denies: Hx Glaucoma, Hx Hearing Aid Opthamlomology History: Reports: Hx Cataracts - Bilateral, Hx Contacts or Glasses - glasses Denies: Hx Glaucoma Neurological History: Reports: Hx Migraine - Has a history of visual migraines, none recent Denies: Other Neuro Impairments/Disorders Psychiatric History: Reports: Hx Anxiety - on medication Denies: Hx Panic Disorder - Cancer History Hx Chemotherapy: No Hx Radiation Therapy: No - Surgical History Surgery Procedure, Year, and Place: 1956 TONSILLECTOMY, [place]. DILATION AND CURETTAGE, [facility]. RIGHT GANGLION CYST EXCISION, [facility]. HYSTERECTOMY, [facility]. 2016 Cervical spine laminectomy [facility] Hx Anesthesia Reactions: No Infectious Disease History: No Infectious Disease History: Denies: Hx Clostridium Difficile, Hx Hepatitis, Hx Human Immunodeficiency Virus (HIV), Hx of Known/Suspected MRSA, Hx Shingles, Hx Tuberculosis, History Other Infectious Disease, Traveled Outside the in Last 30 Days - Family History Known Family History: Positive: Other - Cancer, dementia - Social History Occupation: Retired Lives: With Family Alcohol Use: Daily Alcohol Amount: 2 glasses of wine per day Hx Substance Use: Yes Substance Use Type: Reports: None Hx Tobacco Use: Yes Smoking Status (MU): Former Smoker Type: Cigarettes Amount Used/How Often: 1 1/2 PPD Length of Time of Smoking/Using Tobacco: 25 YEARS Have You Smoked in the Last Year: No Review of Systems Negative: Fever, Chills Negative: Erythema Negative: Sore Throat Positive: Palpitations, Chest Pain - "chest pressure" described as fullness Negative: Shortness Of Breath, Cough Positive: Nausea, Other - pos: excess burping. Negative: Abdominal Pain, Vomiting, Diarrhea Negative: dysuria, hematuria Negative: Myalgia, Edema Negative: Rash Neurological: Other - neg: dizziness All Other Systems Reviewed And Are Negative: Yes Physical Exam - Summary Physical Exam Summary: Constitutional: Well-developed, Well-nourished, Alert. (-) Distressed Skin: Warm, Dry HENT: Normocephalic; Atraumatic Eyes: Conjunctiva normal Neck: Musculoskeletal ROM normal neck. (-) JVD, (-) Stridor, (-) Tracheal deviation Cardio: Irregularly irregular pulse; Intact distal pulses; The pedal pulses are 2+ and symmetric. Radial pulses are 2+ and symmetric. (-) Murmur Pulmonary/Chest wall: Effort normal. (-) Respiratory distress, (-) Wheezes, (-) Rales Abd: Soft, (-) epigastric tenderness, (-) Distension, (-) Guarding, (-) Rebound Musculoskeletal: (-) Edema Lymph: (-) Cervical adenopathy Neuro: Alert, Oriented x3 Psych: Mood and affect Normal Triage Information Reviewed: Yes Vital Signs On Initial Exam: Initial Vitals Temp Pulse Resp BP Pulse Ox 97.9 F 95 18 155/106 98 02/06/18 08:06 02/06/18 08:06 02/06/18 08:06 02/06/18 08:06 02/06/18 08:06 Vital Signs Reviewed: Yes Diagnostics - Vital Signs Vital Signs Temp Pulse Resp BP Pulse Ox 02/06/18 08:28 90 02/06/18 08:06 97.9 F 95 18 155/106 98 - Laboratory Result Diagrams: 02/06/18 08:23 02/06/18 08:23 Lab Statement: Any lab studies that have been ordered have been reviewed, and results considered in the medical decision making process. - EKG 0825 Cardiac Rate: Other Rate - afib at 89 bpm EKG Rhythm: Atrial Fibrillation - at 89bpm EKG Interpretation: no STEMI Re-Evaluation - Re-Evaluation 1 Re-Evaluation Time: 09:05 Change: Unchanged Comment: Pt states not always having the chest fullness with the palpitations. The chest pressure onset was at 0300 and constant. Aggravating factors: ADL seemed to mildly worsen sx. She states her latest stress test on treadmill was normal. Pt had a GI scope and found a slight hiatal hernia. PMHx: Rheumatic fever at 6 years old, heart murmur. 2 Re-Evaluation Time: 10:13 Change: Unchanged Comment: Pt is still having chest pressure, which she believes is due to ingestion. Course/Dx - Course Course Of Treatment: Consulted with Dr. Tate, cardiology, who recommended CP work-up and consersative management with Cardizem. I reviewed the patient's previous records: she has had similar presentations of afib in the past associated with fullness in her chest. - Diagnoses Provider Diagnoses: Afib, Chest pain, unspecified - Physician Notifications Discussed Care Of Patient With: Raphael Tate - cardiology Time Discussed With Above Provider: 08:58 Instructed by Provider To: Other - CP work-up and conservative management with Cardizem. Discharge - Sign-Out/Discharge Documenting (check all that apply): Patient Departure - ADM - Discharge Plan Disposition: ADMITTED TO [facility] - Attestation Statements Document Initiated by Scribe: Yes Documenting Scribe: Suzette Kelley Provider For Whom Scribe is Documenting (Include Credential): Dr. Mitchell Delgadillo MD Scribe Attestation: I, Suzette Kelley, scribed for Dr. Mitchell Delgadillo MD on 02/06/18 at 1910. Consult Consult: At 1040: Consult with Dr. Rosales, hospitalist Recommends CXR. Will admit pt.
[2018-02-06 08:54] LABS: ABS Basophils 0 10^3/ul (0-0.2); ABS Eosinophils 0.1 10^3/ul (0-0.6); ABS Monocytes 0.4 10^3/ul (0-0.8); ABS Neutrophils 1.8 10^3/ul (1.5-7.7); ABS Nucleated RBC 0 10^3/ul; Eosinophil % 3.7 % (0-6); Hematocrit 37 % (35-47); Hemoglobin 12.6 g/dl (12.0-16.0); Lymphocyte % 29.5 % (25-47); Mean Corpuscular HGB Conc 34 g/dl (31-36); Mean Corpuscular Hemoglobin 33 pg (27-31); Mean Corpuscular Volume 98 fL (80-97); Mean Platelet Volume 7.7 um3 (7.4-10.4); Nucleated Red Blood Cells % 0.1; Platelet Count 263 10^3/ul (150-450); Red Cell Distribution Width 14 % (10.5-15); White Blood Count 3.4 10^3/ul (3.5-10.8)
[2018-02-06] MEDS ORDERED: Metoprolol Tartrate IV* 1 MG/ML 5 ML VIAL IV ONE (09:01)
[2018-02-06] MEDS ORDERED: Aspirin 81 mg CHEW TAB* 81 MG TAB.CHEW PO ONE (09:05)
[2018-02-06 09:06] LABS: EGFR Non-African American 71.1 (>60)
[2018-02-06] MEDS ORDERED: Nitroglycerin TAB 0.4 MG* 0.4 MG TAB SL ONE (10:14)
[2018-02-06] MEDS ORDERED: Morphine INJ* 2 MG/ML 1 ML SYRINGE (TWO MG - NEW SYRINGE VERSION) IV PRN (10:53)
[2018-02-06] MEDS ORDERED: Acetaminophen TAB* 325 MG PO PRN (10:53)
[2018-02-06] MEDS ORDERED: Albuterol 2.5 MG/3 ML NEB.SOL* (0.083%) INH PRN (10:53)
[2018-02-06] MEDS ORDERED: Al Hydrox/Mg Hydrox/Simet LIQ* 30 ML UDC PO PRN (10:53)
[2018-02-06] MEDS ORDERED: Ondansetron INJ* 2 MG/ML VIAL IV PRN (10:53)
[2018-02-06] MEDS ORDERED: Hydrocodone/Acetamin 10/325 1 TAB PO PRN (11:04)
[2018-02-06] MEDS ORDERED: Nitroglycerin TAB 0.4 MG* 0.4 MG TAB SL PRN (11:08)
--- NOTE | 2018-02-06 11:10 | RAD ---
HISTORY: chest pain COMPARISONS: June 08, 2017 VIEWS: 4: Frontal dual-energy and lateral views of the chest. FINDINGS: CARDIOMEDIASTINAL SILHOUETTE: The cardiomediastinal silhouette is normal. DUNG: The dung are normal. PLEURA: The costophrenic angles are sharp. No pleural abnormalities are noted. LUNG PARENCHYMA: The lungs are clear. ABDOMEN: The upper abdomen is clear. There is no subphrenic gas. BONES AND SOFT TISSUES: No bone or soft tissue abnormalities are noted. OTHER: None. IMPRESSION: NO ACTIVE CARDIOPULMONARY DISEASE.
[2018-02-06] MEDS: ALPRAZolam TAB* 0.25 MG PO PRN (13:04)
--- NOTE | 2018-02-06 13:14 | HP ---
AMENDED REPORT NOW INCLUDES COSIGNER DESIGNATION - ESIGNED BEFORE ADJUSTMENT CC: Laura Shah NP; Dr. Naylor * ADMISSION HISTORY AND PHYSICAL: DATE OF ADMISSION: 02/06/18 PATIENT OF ADMITTING HOSPITALIST: Dr. Michael Rosales.* (DICTATED BY JOSÉ MIGUEL CIFUENTES) PRIMARY CARE PHYSICIAN: Laura Shah NP PRIMARY FILM COATER: Dr. Terrence Naylor and Dr. Perlita Stacy. CHIEF COMPLAINT: Palpitation and chest pain. HISTORY OF PRESENT ILLNESS: Mrs. Mariano is a 67-year-old female with past medical history significant for hypertension, hyperlipidemia, anxiety, and paroxysmal atrial fibrillation for which she has been on Xarelto since March of last year, who presented to the emergency room earlier this morning with complaints of chest tightness and palpitation. She reports that she got up this morning and took her dog for a walk in the backyard. She noted some increased chest tightness and then episode of palpitation. She went back home and rested and noticed a constant palpitation and chest slightly tight at mid section but denies any significant substernal chest pain and left arm pain, diaphoresis. She has a history of paroxysmal atrial fibrillation that was diagnosed last fall and has been on Xarelto since then. She reports being on her usual state of health until this episode this morning. She admits being under stress for the past year or so and losing a couple of friends to cancer as well as her being diagnosed with a congestive heart failure. She presented to the emergency room and noted to be in atrial fibrillation on EKG. She was given 5 mg of Lopressor via the IV and eventually converted to sinus rhythm. She notes that she still has slight chest tightness, but she also has a history of an anxiety for which she takes Xanax on an as-needed basis. Her last stress test was done in March of last year and it was essentially negative. She also had an echocardiogram that revealed a low-normal ventricular function with no evidence of aortic stenosis and her ejection fraction was 50%. She had laboratory workup today that was essentially negative. Her chest x-ray was done and it revealed no evidence for any active cardiopulmonary disease. Given her ongoing symptoms and her known history of atrial fibrillation and the findings of her chest pain, we were asked to see the patient for further evaluation and to consider admission to Telemetry for observation overnight. PAST MEDICAL HISTORY: As mentioned above, significant for: 1. Paroxysmal atrial fibrillation. 2. Hypertension. 3. Hyperlipidemia. 4. History of PVCs. 5. Pulmonary hypertension. 6. Anxiety. 7. Rheumatic fever as a child without any evidence of valvular disease. PAST SURGICAL HISTORY: Significant for: 1. Bilateral cataract extraction in December of this year. 2. Cervical spine fusion in November 2015. 3. Hysterectomy. 4. Ganglion cyst excision. CURRENT MEDICATIONS: Her medication at home include: 1. Xanax 0.25 mg p.o. t.i.d. 2. Lipitor 80 mg p.o. daily. 3. Pepcid 20 mg p.o. b.i.d. 4. Prozac 60 mg p.o. daily. 5. Mohawk 10/325 one tablet p.o. q.6 hours as needed for pain. 6. Lisinopril 5 mg p.o. daily. 7. Metoprolol succinate 100 mg p.o. b.i.d. 8. Xarelto 20 mg p.o. daily. ALLERGIES: Multiple including BACTRIM, PENICILLIN, and CITALOPRAM. FAMILY HISTORY: The patient notes that her mother had bladder cancer and her father at age 50 from renal cell carcinoma. SOCIAL HISTORY: The patient is a former smoker who used to smoke a pack a day for approximately 25 years. She drinks wine on occasion. She is and her , Pedro Mariano, is the surrogate decision maker. She wishes to be a full code. REVIEW OF SYSTEMS: See HPI, otherwise 14 points review of systems were examined and they were essentially negative. PHYSICAL EXAMINATION GENERAL: She is a pleasant, healthy-appearing, older female, in no acute distress or discomfort at the time of admission. VITAL SIGNS: Reveal a temperature of 97.9, pulse of 71, blood pressure 129/94, respirations of 21, with O2 sats of 97% on room air. HEENT: Head is normocephalic, atraumatic. Sclerae anicteric. PERRLA. EOMs intact. Oropharynx is pink and moist. NECK: Supple. Trachea midline. No cervical adenopathy or thyromegaly. LUNGS: Clear to auscultation bilaterally. HEART: Regular rate and rhythm. Normal S1 and S2 without rubs, murmurs, or gallops. BACK: With normal curvature, no CVA tenderness. BREASTS: Exam deferred at this time. ABDOMEN: Soft, nontender, and nondistended. No herniae, masses, or hepatosplenomegaly. EXTREMITIES: Without cyanosis, clubbing, or edema. NEUROLOGIC: She is awake, alert, and oriented x4. Tongue is midline and hand physicist astrophysics is equal bilaterally. The sensation is intact throughout. RECTAL: Exam deferred at this time. LABORATORY WORKUP: CBC with white count of 3400, hemoglobin of 12.6, hematocrit of 37, and platelets of 263. Chemistry panel with sodium of 140, potassium 4.0, chloride 108, CO2 of 25, BUN of 16, creatinine 0.8, her glucose is 102. LFTs essentially within normal limits and troponin is 0. ACCESSORY DIAGNOSTIC DATA: EKG was done that initially revealed atrial fibrillation with ventricular response between 75 and 85 beats per minute. The patient eventually converted to sinus rhythm after IV Lopressor in the ED. Chest x-ray done, with no acute cardiopulmonary issues. IMPRESSION: A 67-year-old female with past medical history significant for hypertension, hyperlipidemia, and anxiety as well as paroxysmal atrial fibrillation for which she has been on Xarelto since last fall, who presented to the emergency room with chest tightness and palpitation since this morning, found to be in atrial fibrillation and eventually converted to sinus rhythm in the ED. ASSESSMENT AND PLAN: The patient will be admitted to telemetry unit for observation for the followin. Paroxysmal atrial fibrillation. The patient appears to be rate controlled at this time. She will continue her metoprolol at home dose. She still has slight chest tightness; however, it has improved since her presentation to the emergency room. I have discussed the case with Dr. Tate over the phone given the fact that she had a stress test and an echocardiogram done last fall. Her troponin is flat and that we will trend her troponin per protocol and repeat her EKG in the morning. I have contacted Nuclear Medicine Department after I saw the patient to see if there is any possibility to do a stress test this afternoon; however, unfortunately, they will not be able to accommodate for which we might have to postpone her stress test to Friday. There is also the option if her troponin is negative and repeated EKG shows no significant ST changes or any high possibility of acute coronary syndrome, the patient can be discharged home and do the stress test as an outpatient. She appears to be comfortable and agreeable to the plan of care. 2. Hypertension. Her blood pressure was high when she presented to the emergency room; however, after a dose of Lopressor and nitroglycerin, appears to be normotensive at this time. We will continue her home regimen of metoprolol and RODERICK inhibitor. 3. History of paroxysmal atrial fibrillation. She is currently on sinus rhythm after medication administered in the emergency room; we will continue her home metoprolol and continue her Xarelto as well. 4. History of an anxiety. We will continue her p.r.n. Xanax and Prozac. 5. History of chronic back pain and neck pain. We will continue her as-needed Mohawk and added morphine for severe pain. 6. FEN: The patient will be on heart-healthy diet with no caffeine. 7. DVT prophylaxis: She is on Xarelto. 8. Code status: She wishes to be a full code. TIME SPENT: Approximately 60 minutes were spent admitting this patient, of which greater than 50% on taking history and performing physical exam. I went on and discussed the case with my attending, who agreed to plan of care. JOSÉ MIGUEL CIFUENTES [id number]/CPS #: [id number] [email or web address]
[2018-02-06] MEDS: Famotidine TAB* 20 MG PO SCH (20:06)
[2018-02-06] MEDS: Metoprolol Succinate XL TAB* 100 MG PO SCH (20:06)
--- NOTE | 2018-02-06 20:16 | ECHO ---
Patient: RACHEL TREJO [facility] Rec#: [id number] : 1950 Date: 02/06/2018 Age: 67y Height: 160 cm / 63.0 in Weight: 72.58 kg / 160.0 lbs Sex: F BSA: 1.76 Room#: [facility] Admit Date#: 02/06/2018 Type: Inpatient Referring: Isha Johnson Reading: Raphael Tate MD Pit Hoist Operator: Katina Arnett RDCS CC: Hiral Yoon Transthoracic Echocardiogram Indication: Chest Pain BP: 118/64 HR: 69 Rhythm: NSR with PVCs Findings History: Paroxysmal atrial fibrillation, HTN, HLD, PVCs, PHTN, childhood rheumatic fever without valvular disease, former smoker. Technical Comments: The study quality is fair. Completed at 1640. Left Ventricle: The left ventricular chamber size is normal. There is no left ventricular hypertrophy. Mild global hypokinesis of the left ventricle is observed. There is mildly decreased left ventricular systolic function. The estimated ejection fraction is 45-50%. Abnormal left ventricular diastolic function is observed. Abnormal left ventricular diastolic filling is observed, consistent with impaired relaxation. Left Atrium: The left atrium is mildly dilated. Right Ventricle: Moderator Band present. The right ventricular cavity size is normal. The right ventricular global systolic function is low normal. Right Atrium: The right atrium is mildly dilated. Aortic Valve: The aortic valve is trileaflet. The aortic valve leaflets are mildly thickened. There is a trace of aortic regurgitation. There is no evidence of aortic stenosis. Mitral Valve: There is mitral annular calcification. The mitral valve leaflets are mildly thickened. There is mild mitral regurgitation. There is no evidence of mitral stenosis. Tricuspid Valve: The tricuspid valve leaflets are normal. The right ventricular systolic pressure is estimated at 29 mmHg. Mild TR. There is evidence that pulmonary hypertension may be underestimated. There is no tricuspid stenosis. Pulmonic Valve: The pulmonic valve appears normal. There is a trace pulmonic regurgitation. There is no pulmonic stenosis. Pericardium: There is no significant pericardial effusion. Aorta: There is no dilatation of the ascending aorta. There is no dilatation of the aortic arch. The aortic root is normal in size. Pulmonary Artery: The main pulmonary artery appears normal. Venous: The inferior vena cava appears normal in size. There is a greater than 50% respiratory change in the inferior vena cava dimension. Conclusions Mild global hypokinesis of the left ventricle is observed. There is mildly decreased left ventricular systolic function. The estimated ejection fraction is 45-50%. Abnormal left ventricular diastolic filling is observed, consistent with impaired relaxation. The left atrium is mildly dilated. The right atrium is mildly dilated. The aortic valve leaflets are mildly thickened. There is a trace of aortic regurgitation. There is mild mitral regurgitation. The right ventricular systolic pressure is estimated at 29 mmHg. Mild TR. Similar to 03/2017 Measurements Name Value Normal Range RVIDd (AP) 2D 3.3 cm (0.9 - 2.6) RVDdMajor (2D) 4 cm (2.2 - 4.4) RAd ISD 4CH 5.2 cm (3.4 - 4.9) RA (A4C)W 4.1 cm (2.9 - 4.6) IVSd (2D) 0.9 cm (0.6 - 1) LVPWd (2D) 1 cm (0.6 - 1) LVIDd (2D) 4.9 cm (3.6 - 5.4) LVIDs (2D) 3.6 cm - LV FS (2D) 27 % (25 - 45) Aortic Annulus 2.3 cm (1.4 - 2.6) Ao root diameter (2D) 2.6 cm (2.1 - 3.5) Ascending Ao 3.3 cm (2.1 - 3.4) Aortic arch 3 cm (1.8 - 3.4) LA dimension (AP) 2D 4.2 cm (2.3 - 3.8) LAd ISD 4CH 5.4 cm (2.9 - 5.3) LA ISD 4CH W 4.8 cm (2.5 - 4.5) Name Value Normal Range LA ESV BP (A/L) index 36 ml/m2 - Name Value Normal Range MV E-wave Vmax 0.6 m/sec - MV deceleration time 246 msec - MV A-wave Vmax 0.9 m/sec - MV E:A ratio 0.7 ratio - LV septal e' Vmax 0.05 m/sec - LV lateral e' Vmax 0.05 m/sec - LV E:e' septal ratio 12 ratio - LV E:e' lateral ratio 12 ratio - Name Value Normal Range AV Vmax 1.3 m/sec - AV VTI 29.2 cm - AV peak gradient 7 mmHg - AV mean gradient 5 mmHg - LVOT Vmax 0.9 m/sec - LVOT VTI 18.9 cm - LVOT peak gradient 3 mmHg - LVOT mean gradient 2 mmHg - GAVIN Vmax 0.7 m/sec - Name Value Normal Range TR Vmax 2.3 m/sec - TR peak gradient 21 mmHg - RAP 8 mmHg - RVSP 29 mmHg - IVC diameter 1.7 cm - Name Value Normal Range PV Vmax 1 m/sec - PV peak gradient 4 mmHg -
[2018-02-07 05:56] LABS: ABS Basophils 0 10^3/ul (0-0.2); ABS Eosinophils 0.1 10^3/ul (0-0.6); ABS Lymphocytes 1.1 10^3/ul (1.0-4.8); ABS Monocytes 0.4 10^3/ul (0-0.8); ABS Neutrophils 1.4 10^3/ul (1.5-7.7); ABS Nucleated RBC 0 10^3/ul; Eosinophil % 3.8 % (0-6); Hematocrit 36 % (35-47); Hemoglobin 12.2 g/dl (12.0-16.0); Lymphocyte % 35.8 % (25-47); Mean Corpuscular HGB Conc 34 g/dl (31-36); Mean Corpuscular Hemoglobin 34 pg (27-31); Mean Corpuscular Volume 99 fL (80-97); Mean Platelet Volume 7.5 um3 (7.4-10.4); Nucleated Red Blood Cells % 0.1; Platelet Count 225 10^3/ul (150-450); Red Blood Count 3.65 10^6/ul (4.00-5.40); Red Cell Distribution Width 14 % (10.5-15); White Blood Count 3.1 10^3/ul (3.5-10.8)
[2018-02-07 06:14] LABS: EGFR Non-African American 75.5 (>60)
[2018-02-07] MEDS: ALPRAZolam TAB* 0.25 MG PO PRN (06:45)
[2018-02-07 07:52] VITALS: BP 156/80
[2018-02-07] MEDS: Famotidine TAB* 20 MG PO SCH (09:00)
[2018-02-07] MEDS ORDERED: Atorvastatin* 80 MG TAB PO SCH (09:00)
[2018-02-07] MEDS ORDERED: FLUoxetine CAP* 20 MG PO SCH (09:00)
[2018-02-07] MEDS ORDERED: Lisinopril TAB* 5 MG PO SCH (09:00)
[2018-02-07] MEDS: Metoprolol Succinate XL TAB* 100 MG PO SCH ×2 (09:00→09:19)
[2018-02-07] MEDS ORDERED: Rivaroxaban TAB(*) 20 MG TAB PO SCH (17:00)
--- NOTE | 2018-02-08 04:03 | DS ---
CC: Hiral Yoon NP; Dr. Naylor, Cardiology * DISCHARGE SUMMARY: DATE OF ADMISSION: 02/06/18. DATE OF DISCHARGE: 02/07/18. PRIMARY CARE PROVIDER: Hiral Yoon NP. DISCHARGE DIAGNOSIS: Symptomatic episode of atrial fibrillation that resolved after treatment with IV Lopressor in the emergency department. SECONDARY DIAGNOSES: 1. History of paroxysmal atrial fibrillation in the past with the first episode being in March 2017. 2. History of hypertension. 3. Hyperlipidemia. 4. History of premature ventricular complexes. 5. History of pulmonary hypertension. MEDICATIONS AT DISCHARGE: Unchanged from admission and include: 1. Xanax 0.25 mg 2 times a day. 2. Lipitor 80 mg daily. 3. Pepcid 20 mg b.i.d. 4. Prozac 60 mg daily. 5. Colora on a p.r.n. basis. 6. Lisinopril 5 mg daily. 7. Metoprolol succinate 100 mg b.i.d. 8. Xarelto 20 mg daily. LABORATORY DATA AND STUDIES PERFORMED DURING THE HOSPITAL STAY: On 02/07/18, white blood cell count of 3.1, hemoglobin of 12.2, hematocrit of 36, and platelets of 225. Sodium of 140, potassium of 3.9, chloride 106, carbon dioxide 29, BUN 14, creatinine 0.76. Liver function test was unremarkable. Troponin of 0 throughout the patient's hospital stay. Lipid profile on the morning of 02/05/18, shows triglycerides of 209, cholesterol of 224, LDL of 124, and HDL of 58. Transthoracic echocardiogram obtained on 02/06/18 showed EF of 45% to 50%, and abnormal left ventricular diastolic filling consistent with impaired relaxation. There was trace aortic regurgitation, and right atrium was mildly dilated. There was mild global hypokinesis of the left ventricle. The echo was similar to echo from March 2017. HOSPITALIZATION COURSE: Chioma Mariano is a 67-year-old female with history of paroxysmal atrial fibrillation, who presented to the hospital after an episode of palpitations and chest pressure that she developed on 02/06/18. The patient converted to sinus rhythm after intravenous Lopressor treatment in the emergency department. Nevertheless, due to symptoms of atrial fibrillation the ED physician requested for the patient to be observed. The patient was observed in the snap attacher bed and her troponins following were unremarkable and at 0. The patient stated that in the past when she had atrial fibrillation, in March 2017 she also had the same symptoms. She had a stress test in March as well as echocardiogram that were unremarkable. The patient does have a history of low EF at 45% and her echocardiogram reported on 02/06/18, showed no significant change from March. I had a long discussion with the patient at discharge to avoid caffeinated beverages and about sleep hygiene. The patient stated that she had been undergoing a stressful situation with her being ill. The patient is also advised to follow up with Dr. Naylor's service in 1 to 2 weeks after discharge. The patient is also advised to follow up with her primary care provider in approximately 4 to 7 days. PHYSICAL EXAMINATION: At the time of discharge, blood pressure of 156/80 in the morning prior to medication. Please note that the patient's blood pressure had been labile throughout her hospital stay ranging from 103/60 to the highest at 155/106 at admission. Heart rate currently is 61 and regular, respiratory rate 18, and oxygen saturation of 99% on room air. Temperature 97.2. General Appearance: This is a very pleasant 67-year-old female, who is in no acute distress. Alert, awake, and oriented x3. HEENT: Head atraumatic and normocephalic. Eyes: Pupils are equal, round, and reactive to light and accommodation. Oropharynx clear, mucosa moist. Neck: Supple. No JVD, no bruits bilaterally. Cardiovascular: Regular, rate, and rhythm. No murmur. Respiratory: Clear to auscultation bilaterally. Abdomen: Soft and nontender. Bowel sounds present in all 4 quadrants. Extremities: There is no edema. Pulses are +2 bilaterally. No clubbing or cyanosis. On neuro evaluation, speech is clear. Cranial nerves II through XII grossly intact. Motor strength : 5/5 bilaterally. The patient is being discharged to home with recommendations to follow up with cardiology in 1 to 2 weeks. Please note, that this is a short summary of the patient's hospital stay. Please refer to further medical records for details. [id number] #: [id number] MTDD
== END 2018-02-07 11:32 | disposition home or self-care (01) ==
LOC: ED 07:58 → MEDTELE 10:53
PROVIDERS: ADMIT Student in an Organized Health Care Education/Training Program; ATTEND Internal Medicine
DX: I48.0 Paroxysmal atrial fibrillation (principal); I10 Essential (primary) hypertension; F41.9 Anxiety disorder, unspecified; M54.2 Cervicalgia; M54.9 Dorsalgia, unspecified; G89.29 Other chronic pain; Z79.01 Long term (current) use of anticoagulants; Z88.0 Allergy status to penicillin; Z88.2 Allergy status to sulfonamides; Z88.8 Allergy status to other drugs, medicaments and biological substances; Z87.891 Personal history of nicotine dependence
CPT/HCPCS: 36415; 71046; 80048; 80053; 80061; 83605; 84484; 85025; 93005; 93306; 96374; 96375; 99284; A9270-GY; G0378; J2405; J3490

== ENCOUNTER 2018-03-22 09:29 | Emergency (ER) | payer MEDICARE ==
[2018-03-22] MEDS ORDERED: Ondansetron INJ* 2 MG/ML VIAL IV ONE (09:46)
--- OUTSIDE RECORDS SUMMARY | 2018-03-22 09:52 | XMS REPORT ---
:1950 External Reference #:[id number] Author Organization [facility] Address [address] [place] [place] [address] Phone [phone] Care Team Providers Name Role Phone Tomás Jaime MD Care Team Information Cannoneer Unavailable Laura Shah FNP Primary Care Physician Unavailable Payers Type Date Identification Numbers Payment Provider Subscriber Commercial Expires: Policy Number: [id number] [employer] Medicare Chioma Mariano 2016 PayID: [id number] [address] [place] [address] Workers Compensation Effective: Policy Number: Nca Reji Chioma Mariano 1998 [id number] Onset: 1998 Group Number: [id number], [address] PayID: [id number] [address] Health Maintenance Policy Number: Medicare Blue o Chioma Mariano [facility] (O) [id number] PayID: [id number] [address] [address] [place] [address] Problems Date Description Provider Status Onset: 10/03/2014 Palpitations Terrence Naylor M.D., [facility], Active [facility] Onset: 10/03/2014 Benign essential hypertension Terrence Naylor M.D., [facility], Active [facility] Onset: 10/03/2014 Mitral valve disorder Terrence Naylor M.D., [facility], Active [facility] Onset: 03/06/2015 Essential hypertension Terrence Naylor M.D., [facility], Active [facility] Onset: 08/07/2015 Cervical 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 Active myelopathy Onset: 04/01/2017 Paroxysmal atrial fibrillation Terrence Naylor M.D., [facility], Active [facility] Onset: 12/06/2015 Convalescence after surgery Abhijeet Noyola M.D. Active Family History Date Family Member(s) Problem(s) Comments General Cancer Father Kidney Cancer Mother Bladder Cancer Social History Type Date Description Comments Marital Status Lives With Occupation Retired vascular order fulfillment specialist Cigarette Use Former Cigarette Smoker ETOH Use Currently consumes alcohol 2 glasses of wine daily Smoking Patient is a former smoker quit smoking in 1985, smoked 1PPD for 19yrs Recreational Drug Use Denies Drug Use Daily Caffeine Consumes on average 1 cup of regular coffee per day Exercise Type/Frequency Exercises sporadically Allergies, Adverse Reactions, Alerts Date Description Reaction Status Severity Comments 09/29/2014 Penicillin active 09/29/2014 Bactrim active 04/01/2017 Celexa active Medications Medication Date Status Form Strength Qnty SIG Indications Ordering Provider Sanjay 12/28/ Active Tablets 5-325mg 90tab 1-2 PO Z48.89 Abhijeet 2015 s Q4-6h prn [place], pain M.D. Cyclobenzaprine 12/12/ Active Tablets 10mg 60tab 1 by Abhijeet RODRIGUEZ 2015 s mouth Jazmín, three M.D. times a day as needed muscle spasm pt no longer using) Atorvastatin / Active Tablets 80mg 1 by Unknown Calcium 0000 mouth every day Fluoxetine HCL / Active Capsules 40mg 1 by Unknown 0000 mouth every day Fluoxetine HCL / Active Capsules 20mg 1 by Unknown 0000 mouth every day Alprazolam / Active Tablets 0.25mg one by Unknown 0000 mouth up to three times daily as needed for anxiety Lorzone / Active Tablets 750mg prn Unknown 0000 Xarelto / Active Tablets 20mg 1 by Unknown 0000 mouth every day Metoprolol / Active Tablets ER 100mg 1 by Unknown Succinate ER 0000 24HR mouth twice daily ( med change increase 11/2017) Pantoprazole / Active Tablets DR 40mg 1 by Unknown Sodium 0000 mouth every day Lisinopril / Active Tablets 5mg 1 tablet Pablo, 0000 po daily JORGE Sanchez Brinkley 11/23/ Hx Tablets 5-325mg 90tab 1-2 by Abhijeet 2016 - s mouth Jazmín, 12/28/ every 6 M.D. 2016 hours as needed pain Atenolol 03/06/ Hx Tablets 50mg 180ta 1 pill I10 Terrence 2015 - bs twice a Stefek, day M.D., 2017 FACC, [facility] Atenolol / Hx Tablets 50mg 1 by I10 Unknown 0000 - mouth day 2014 Aspirin / Hx Tablets 81mg 1 by Unknown 0000 - mouth every day 2016 Hydrocodone-Aceta / Hx Tablets 5-325mg 1 by Unknown minophen 0000 - mouth 12/04/ every 4-6 2016 hours prn. Metaxalone / Hx Tablets 800mg take 1 Unknown 0000 - tablet 3 08/06/ times a 2015 day as needed Multivitamins / Hx Capsules 1 by Unknown 0000 - mouth day 2016 - hasn't been taking every day Omeprazole / Hx Capsules 20.6(20Bas 1 tab po Unknown Magnesium 0000 - DR e) mg daily 2014 Lorzone 00/ Hx Tablets 750mg 1 bid prn Unknown 0000 - 2015 Famotidine 00/ Hx Tablets 20mg 1 by Unknown 0000 - mouth twice 2018 daily Vital Signs Date Vital Result Comment 03/06/2018 Height 62.5 inches 5'2.50" Weight 156.00 lb with out shoes Heart Rate 72 /min BP Systolic Sitting 124 mmHg Rue reg cuff BP Diastolic Sitting 80 mmHg Rue reg cuff BP Systolic Standing 130 mmHg Rue reg cuff BP Diastolic Standing 80 mmHg Rue reg cuff Respiratory Rate 16 /min BMI (Body Mass Index) 28.1 kg/m2 Ejection Fraction 45-50% date 02/06/18 ECHO 04/01/2017 Height 62.5 inches 5'2.50" Weight 160.00 lb w/shoes Heart Rate 78 /min 82 standing BP Systolic Sitting 142 mmHg LA reg cuff BP Diastolic Sitting 78 mmHg LA reg cuff BP Systolic Standing 148 mmHg LA reg cuff BP Diastolic Standing 88 mmHg LA reg cuff BMI (Body Mass Index) 28.8 kg/m2 Ejection Fraction 45-50% Echo 03/25/17 03/20/2016 Height 62.5 inches 5'2.50" Weight 161.00 lb Heart Rate 72 /min 80 BP Systolic Sitting 140 mmHg right arm, reg cuff BP Diastolic Sitting 92 mmHg right arm, reg cuff BP Systolic Standing 136 mmHg right arm, reg cuff BP Diastolic Standing 92 mmHg right arm, reg cuff Respiratory Rate 16 /min BMI (Body Mass Index) 29.0 kg/m2 Ejection Fraction 50-55% 08/30/14 02/07/2016 Height 62.5 inches 5'2.50" Weight 164.00 lb Heart Rate 72 /min BP Systolic 126 mmHg BP Diastolic 80 mmHg BMI (Body Mass Index) 29.5 kg/m2 12/29/2015 Height 62.5 inches 5'2.50" Weight 162.00 lb Heart Rate 64 /min BP Systolic Sitting 126 mmHg BP Diastolic Sitting 78 mmHg Respiratory Rate 16 /min Pain Level 2 BMI (Body Mass Index) 29.2 kg/m2 12/06/2015 Height 62.5 inches 5'2.50" Weight 163.00 lb Heart Rate 74 /min BP Systolic Sitting 132 mmHg BP Diastolic Sitting 82 mmHg Body Temperature 98.3 F Pain Level 4 BMI (Body Mass Index) 29.3 kg/m2 11/13/2015 Height 62.5 inches 5'2.50" Weight 163.00 lb Heart Rate 68 /min BP Systolic Sitting 142 mmHg BP Diastolic Sitting 84 mmHg Respiratory Rate 16 /min Pain Level 7 BMI (Body Mass Index) 29.3 kg/m2 09/18/2015 Height 62.5 inches 5'2.50" Weight 160.00 lb Heart Rate 82 /min BP Systolic Sitting 122 mmHg BP Diastolic Sitting 78 mmHg Pain Level 4 BMI (Body Mass Index) 28.8 kg/m2 08/07/2015 Height 62.5 inches 5'2.50" Weight 160.00 lb Heart Rate 72 /min BP Systolic Sitting 148 mmHg BP Diastolic Sitting 90 mmHg Pain Level 6 BMI (Body Mass Index) 28.8 kg/m2 03/06/2015 Height 62.5 inches 5'2.50" Weight 158.00 lb Heart Rate 70 /min 74 BP Systolic Sitting 148 mmHg right arm, reg cuff BP Diastolic Sitting 96 mmHg right arm, reg cuff BP Systolic Standing 146 mmHg right arm, reg cuff BP Diastolic Standing 98 mmHg right arm, reg cuff Respiratory Rate 16 /min BMI (Body Mass Index) 28.4 kg/m2 Ejection Fraction 50-55% 08/30/14 10/25/2014 Height 62.5 inches 5'2.50" Weight 161.00 lb Heart Rate 66 /min 80 BP Systolic Sitting 126 mmHg left arm, reg cuff BP Diastolic Sitting 84 mmHg left arm, reg cuff BP Systolic Standing 118 mmHg left arm, reg cuff BP Diastolic Standing 84 mmHg left arm, reg cuff Respiratory Rate 16 /min BMI (Body Mass Index) 29.0 kg/m2 Ejection Fraction 50-55% 08/30/14 10/03/2014 Height 62.5 inches 5'2.50" Weight 160.00 lb Heart Rate 70 /min 76 BP Systolic 132 mmHg right arm, reg cuff BP Diastolic 92 mmHg right arm, reg cuff BP Systolic Sitting 140 mmHg left arm, reg cuff BP Diastolic Sitting 92 mmHg left arm, reg cuff BP Systolic Standing 136 mmHg left arm, reg cuff BP Diastolic Standing 92 mmHg left arm, reg cuff Respiratory Rate 12 /min BMI (Body Mass Index) 28.8 kg/m2 Ejection Fraction 50-55% 08/30/14 Results Test Date Test Result H/L Range Note CBC No Diff 11/14/2015 White Blood Count 5.2 10^3/uL 3.5-10.8 Red Blood Count 4.04 10^6/uL 4.0-5.4 Hemoglobin 13.2 g/dL 12.0-16.0 Hematocrit 40 % 35-47 Mean Corpuscular Volume 99 fL High 80-97 Mean Corpuscular Hemoglobin 33 pg High 27-31 Mean Corpuscular HGB Conc 33 g/dL 31-36 Red Cell Distribution Width 13 % 10.5-15 Platelet Count 242 10^3/uL 150-450 Mean Platelet Volume 8 um3 7.4-10.4 Basic Metabolic Panel 11/14/2015 Sodium 139 mmol/L 133-145 Potassium 3.9 mmol/L 3.5-5.0 Chloride 103 mmol/L 101-111 Co2 Carbon Dioxide 27 mmol/L 22-32 Anion Gap 9 mmol/L 2-11 Glucose 91 mg/dL 70-100 Blood Urea Nitrogen 17 mg/dL 6-24 Creatinine 0.73 mg/dL 0.51-0.95 BUN/Creatinine Ratio 23.3 High 8-20 Calcium 9.6 mg/dL 8.6-10.3 Egfr Non- 79.5 >60 Egfr 102.3 >60 1 Order 10/04/2014 Stress Test, Exercise Nuclear <pending> 1 Because ethnic data is not always [...] 15-29 5 Kidney failure <15 (or dialysis) Procedures Date CPT Code Description Status 03/06/2018 39768 EKG Tracing & Interpretation Completed 02/06/2018 08476 ECHO Transthorasic Realtime 2D W Doppler & Color Flow Completed Hosp 04/01/2017 14690 EKG Tracing & Interpretation Completed 03/31/2017 88594 Treadmill Interp/Report Only Completed 03/31/2017 66442 Stress Test Supervsn W/Out I/R Completed 03/25/2017 88930 ECHO Transthorasic Realtime 2D W Doppler & Color Flow Completed Hosp 03/20/2016 03429 EKG Tracing & Interpretation Completed 03/20/2016 87115 EKG Tracing & Interpretation Completed 11/21/2015 23185 Laminectomy W/Expl &/Or Decomp Of Spinal Cord &/Or Completed Cauda Equina 11/21/2015 73693 Laminectomy W/Expl &/Or Decomp Of Spinal Cord &/Or Completed Cauda Equina 11/14/2015 19980 EKG, Interpretation Only Completed 03/06/2015 77005 EKG Tracing & Interpretation Completed 10/04/2014 70826 Treadmill Interp/Report Only Completed 10/04/2014 07006 Stress Test Supervsn W/Out I/R Completed 10/03/2014 11308 EKG Tracing & Interpretation Completed 08/30/2014 37394 ECHO Transthorasic Realtime 2D W Doppler & Color Flow Completed Hosp 08/18/2014 16071 Holter Monitor Review (24 hr)dr vernon & parveen only Completed 10/05/2010 31840 Rad Exam; Foot Limited Completed 10/05/2010 31465 Rad Exam; Ankle Comp Completed Encounters Type Date Location Provider CPT E/M Dx Office Visit 03/06/2018 [facility] Bernardino Lockett, 51038 I48.0 11:30a Hebert Sinclair R07.9 Office Visit 02/07/2018 1:20p [facility] Jodie aSucedo, 46171 I48.0 Hospitalists MIndira I10 Office Visit [facility]2018 [facility] 85285 I48.0 [facility]oc,pc Hospitalists I10 Office Visit 04/01/2017 2:00p [facility] Miguel Naylor M.D., 74289 I48.0 Independent Crop Consultant AT [facility] I10 Office Visit 03/31/2017 3:14p [facility], Tati Menjivar, 95670 I48.0 Hospitalists N.P. K21.9 R07.89 F41.9 Office Visit 03/30/2017 3:13p [facility] Akua Hernandez, JUNIOR TECHNICAL WRITER 11064 I48.0 Hospitalists K21.9 R07.89 F41.9 Office Visit 03/25/2017 3:26p [facility] Román Lu, 25730 I48.0 Hospitalists Yahir F41.9 I10 Office Visit 03/24/2017 [facility], 78468 I48.0 Hospitalists N.P. I10 F41.9 Office Visit 03/20/2016 10:00a [facility] Naylor M.D., 39639 R00.2 [facility] AT [facility] I10 R00.2 I10 Office Visit 09/18/2015 11:45a [facility] Abhijeet Nyoola 80679 M47.22 Of Hebert MIndira Office Visit 08/07/2015 10:30a [facility] Abhijeet Noyola 70833 M47.22 Of Hebert M.Adilia Office Visit 03/06/2015 10:00a [facility] Naylor M.D., 99134 R00.2 Independent Crop Consultant AT [facility], [facility] I10 I34.0 Office Visit 10/25/2014 4:00p [facility] Naylor M.D., 55726 785.1 Independent Crop Consultant AT [facility], [facility] 401.1 424.0 Office Visit 10/04/2014 10:16a [facility] [place] [address] 786.50 Hospitalists 785.1 787.02 300.00 Office Visit 10/03/2014 9:00a [facility] Naylor M.D., 18001 785.1 Independent Crop Consultant AT [facility], [facility] 401.1 424.0 Office Visit 02/27/2011 9:30a [facility] Chevy Rios M.D. 98605 733.95 C.M.A. 716.17 Office Visit 01/15/2011 1:30p [facility] HUANG Ahmadi 68544 728.71 Of C.M.A. 733.95 Office Visit 11/28/2010 9:30a [facility] Rich Orozco 02620 733.95 Of C.M.A. Vicente Pena Office Visit 10/17/2010 9:15a [facility] Chevy Rios M.D. 21167 733.95 Of C.M.A. Office Visit 10/05/2010 10:30a [facility] Chevy Rios M.D. 32258 719.47 Of C.M.A. Plan of Care Future Appointment(s):04/07/2018 9:30 am - Tati Menjivar N.P. at [facility]03/13/2018 11:00 am - Bernardino Lockett M.D. at [facility]03/06/2018 - Bernardino Lockett M.D.I48.0 Paroxysmal atrial fibrillationNew Orders:Stress Test, Exercise NuclearFollow up:1 month with NPR07.9 Chest pain, unspecified
--- NOTE | 2018-03-22 09:54 | ED ---
HPI Cardiac - HPI Summary HPI Summary: The pt is a 67 year old F presenting to the ED with a chief complaint of fullness in her chest onset about 0530 this morning that is still present. The pt burps a lot, and feels a discomfort across her chest and arms with severe nausea. She was having severe palpitations earlier, feeling similar to her AFib episodes, but has had a recent normal cardiac stress test. The pt denies shortness of breath or hx of any other heart problems. - History of Current Complaint Chief Complaint: EDDysrhythmPalp Stated Complaint: A FIB Time Seen by Provider: 03/22/18 09:41 Hx Obtained From: Patient Onset/Duration: Started Hours Ago Timing: Constant Initial Severity: Mild Current Severity: Mild Pain Intensity: 1 Pain Scale Used: 0-10 Numeric Chest Pain Location: Diffuse - across chest Chest Pain Radiates: Yes Chest Pain Radiates To:: Arm Character: Other: - fullness, hard heartbeats this morning Aggravating Factor(s): Nothing Alleviating Factor(s): Nothing Associated Signs and Symptoms: Positive: Chest Pain, Nausea, Palpitations, Other : - burping. Negative: Shortness of Breath - Additional Pertinent History Primary Care Physician: [id number] - Allergy/Home Medications Allergies/Adverse Reactions: Allergies Allergy/AdvReac Type Severity Reaction Status Date / Time citalopram Allergy Severe Agitation Verified 03/22/18 09:35 Penicillins Allergy Rash Verified 03/22/18 09:35 sulfamethoxazole Allergy Rash Verified 03/22/18 09:35 [From Sulfamethoprim] trimethoprim Allergy Rash Verified 03/22/18 09:35 [From Sulfamethoprim] Environmental/Seasonal Allergy Mild Cough, Uncoded 03/22/18 09:35 Hayfever Post nasal drip PMH/Surg Hx/FS Hx/Imm Hx Previously Healthy: No Endocrine/Hematology History: Denies: Hx Diabetes Cardiovascular History: Reports: Hx Atrial Fibrillation, Hx Hypercholesterolemia , Hx Hypertension - ON MEDS, Hx Rheumatic Fever - A CHILD, 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-pt states mild, Other Cardiovascular Problems/Disorders - PALPITATIONS, EPISODIC X10 YEARS Denies: Hx Angina, Hx Coronary Artery Disease, Hx Myocardial Infarction, Hx Pacemaker/ICD Respiratory History: Denies: Hx Asthma, Hx Chronic Obstructive Pulmonary Disease (COPD), Other Respiratory Problems/Disorders GI History: Reports: Hx Gastroesophageal Reflux Disease - pantoprazole, Hx Hiatal Hernia - small hiatal hernia Denies: Other GI Disorders History: Reports: Other Problems/Disorders - Nocturia x 2, states she drinks alot of liquids Musculoskeletal History: Reports: Hx Arthritis - feet, left knee and spine- upper and lower, Hx Tendonitis - Right wrist, Other Musculoskeletal History - cervical and lumbar disc disease Denies: Hx Osteoporosis Sensory History: Reports: Hx Cataracts - Bilateral, Hx Contacts or Glasses - glasses Denies: Hx Glaucoma, Hx Hearing Aid Opthamlomology History: Reports: Hx Cataracts - Bilateral, Hx Contacts or Glasses - glasses Denies: Hx Glaucoma Neurological History: Reports: Hx Migraine - Has a history of visual migraines, none recent Denies: Other Neuro Impairments/Disorders Psychiatric History: Reports: Hx Anxiety - on medication Denies: Hx Panic Disorder - Cancer History Hx Chemotherapy: No Hx Radiation Therapy: No - Surgical History Surgery Procedure, Year, and Place: 1956 TONSILLECTOMY, [place]. DILATION AND CURETTAGE, [facility] [place]. RIGHT GANGLION CYST EXCISION, [facility] [place]. HYSTERECTOMY, [facility] [place]. 2016 Cervical spine laminectomy [facility] Hx Anesthesia Reactions: No Infectious Disease History: No Infectious Disease History: Denies: Hx Clostridium Difficile, Hx Hepatitis, Hx Human Immunodeficiency Virus (HIV), Hx of Known/Suspected MRSA, Hx Shingles, Hx Tuberculosis, History Other Infectious Disease, Traveled Outside the in Last 30 Days - Family History Known Family History: Positive: Other - Cancer, dementia - Social History Alcohol Use: Daily Alcohol Amount: 2 glasses of wine per day Hx Substance Use: Yes Substance Use Type: Reports: None Hx Tobacco Use: Yes Smoking Status (MU): Former Smoker Type: Cigarettes Amount Used/How Often: 1 1/2 PPD Length of Time of Smoking/Using Tobacco: 25 YEARS Have You Smoked in the Last Year: No Review of Systems Positive: Chest Pain Negative: Shortness Of Breath Positive: Nausea All Other Systems Reviewed And Are Negative: Yes Physical Exam - Summary Physical Exam Summary: Appearance: Well-appearing, Well-nourished, lying in bed comfortably Skin: Warm, dry, no obvious rash Eyes: sclera anicteric, no conjunctival pallor ENT: mucous membranes moist, pharynx appears normal Neck: Supple, nontender Respiratory: Clear to auscultation, no signs of respiratory distress Cardiovascular: Normal S1, S2. No murmurs. Normal distal pulses in tibial and radial bilaterally. Abdomen: Soft, nontender, normal active bowel sounds present Musculoskeletal: Normal, Strength/ROM Intact Neurological: A&Ox3, awake and alert, mentation is normal, speech is fluent and appropriate Psychiatric: affect is normal, does not appear anxious or depressed Triage Information Reviewed: Yes Vital Signs On Initial Exam: Initial Vitals Temp Pulse Resp BP Pulse Ox 99.5 F 66 16 172/84 99 03/22/18 09:33 03/22/18 09:33 03/22/18 09:33 03/22/18 09:33 03/22/18 09:33 Vital Signs Reviewed: Yes Diagnostics - Vital Signs Vital Signs Temp Pulse Resp BP Pulse Ox 03/22/18 09:44 71 21 185/96 100 03/22/18 09:43 69 16 197/123 100 03/22/18 09:41 67 98 03/22/18 09:33 99.5 F 66 16 172/84 99 - Laboratory Result Diagrams: 03/22/18 09:59 03/22/18 09:59 Lab Statement: Any lab studies that have been ordered have been reviewed, and results considered in the medical decision making process. - Radiology CXR Radiology Interpretation Completed By: Radiologist Summary of Radiographic Findings: No radiographic evidence for acute cardiopulmonary abnormality on this portable chest xray. ED physician has reviewed this report. - EKG 1043 Cardiac Rate: NL - 66bpm EKG Rhythm: Sinus Rhythm ST Segment: Normal Ectopy: None Disposition - Course Course Of Treatment: Pt is a 67 year old F presenting to the ED because of heart palpitations onset this morning around 0530. She said it felt like an AFib episode, with fullness in her chest and lots of burping. She denies any shortness of breath or hx of any other heart problems. She has had a recent normal cardiac stress test. - Diagnoses Provider Diagnoses: GERD (gastroesophageal reflux disease) Discharge - Sign-Out/Discharge Documenting (check all that apply): Patient Departure - Discharge Plan Condition: Stable Disposition: HOME Referrals: Juan Greer MD [Primary Care Provider] - - Attestation Statements Document Initiated by Scribe: Yes Documenting Scribe: Blanca Bauman Provider For Whom Scribe is Documenting (Include Credential): Boom Perez MD. Scribe Attestation: Blanca Powell, scribed for Boom Perez MD. on 03/22/18 at 1403.
[2018-03-22 10:25] LABS: ABS Basophils 0 10^3/ul (0-0.2); ABS Eosinophils 0.1 10^3/ul (0-0.6); ABS Lymphocytes 0.9 10^3/ul (1.0-4.8); ABS Monocytes 0.3 10^3/ul (0-0.8); ABS Neutrophils 4.5 10^3/ul (1.5-7.7); ABS Nucleated RBC 0 10^3/ul; Eosinophil % 1.5 % (0-6); Hematocrit 39 % (35-47); Hemoglobin 13.2 g/dl (12.0-16.0); Lymphocyte % 15.6 % (25-47); Mean Corpuscular HGB Conc 34 g/dl (31-36); Mean Corpuscular Hemoglobin 33 pg (27-31); Mean Corpuscular Volume 99 fL (80-97); Nucleated Red Blood Cells % 0.1; Platelet Count 278 10^3/ul (150-450); Red Blood Count 3.97 10^6/ul (4.00-5.40); Red Cell Distribution Width 13 % (10.5-15); White Blood Count 5.8 10^3/ul (3.5-10.8)
[2018-03-22 10:52] LABS: EGFR Non-African American 73.2 (>60)
--- NOTE | 2018-03-22 11:28 | RAD ---
INDICATION: Chest prior to and COMPARISON: Chest x-ray dated February 06, 2018 TECHNIQUE: Single AP portable view of the chest was obtained. FINDINGS: Image quality is compromised due to the relative inferiority of a portable chest x-ray. The heart and mediastinum exhibit normal size and contour. The lungs are grossly clear. There is no evidence of a large pleural effusion. Visualized bones are normal for the patient's age. IMPRESSION: No radiographic evidence for acute cardiopulmonary abnormality on this portable chest x-ray.
[2018-03-22 14:22] VITALS: BP 130/56
== END 2018-03-22 14:21 | disposition home or self-care (01) ==
LOC: ED 09:29
DX: K21.9 Gastro-esophageal reflux disease without esophagitis (principal); I48.91 Unspecified atrial fibrillation; E78.00 Pure hypercholesterolemia, unspecified; I10 Essential (primary) hypertension; Z88.0 Allergy status to penicillin; Z88.2 Allergy status to sulfonamides
CPT/HCPCS: 36415; 71045; 80053; 84484; 85025; 93005; 96374; 99285; J2405

== ENCOUNTER 2018-12-14 09:35 | Observation (INO) | payer MEDICARE ==
[2018-12-14 10:29] LABS: Hematocrit 40 % (35-47); Hemoglobin 13.6 g/dL (12.0-16.0); Mean Corpuscular HGB Conc 34 g/dL (31-36); Mean Corpuscular Hemoglobin 33 pg (27-31); Mean Corpuscular Volume 98 fL (80-97); Mean Platelet Volume 7.3 fL (7.4-10.4); Platelet Count 262 10^3/uL (150-450); Red Cell Distribution Width 14 % (10-15)
[2018-12-14 10:49] LABS: Albumin 4.2 g/dL (3.2-5.2); Albumin/Globulin Ratio 1.5 (1-3); BUN/Creatinine Ratio 17.7 (8-20); Calcium 9.3 mg/dL (8.6-10.3); EGFR African American 87.1 (>60); EGFR Non-African American 71.9 (>60); Globulin 2.8 g/dL (2-4); Magnesium 1.9 mg/dL (1.9-2.7); Potassium 3.6 mmol/L (3.5-5.0); Total Bilirubin 0.5 mg/dL (0.2-1.0)
--- NOTE | 2018-12-14 10:50 | ED ---
Palpitations / Dysrhythmia - HPI Summary HPI Summary: Patient is a 68 y/o F w/ presents to ED with complaints of palpations onsetting this morning at around 0500. Palpitations are characterized as a "pounding" sensation. PMHx of GERD, HLD, HTN, afib and anxiety attacks. Patient is on flecainide, xarelto. She had taken her morning medications but notes that she missed her flecainide dose last night. She notes that she also took Xanax this morning. PMHx of anxiety attacks. Patient measured pulse this morning and reports that she had BPM of 80-82. She reports that she later experienced shakiness and felt "uncomfortable". Nausea onset some time afterwards as well. She denies SOB, calf pain/swelling. Patient endorses "a tiny bit" of dizziness. She states that she has had episodes of palpitations in the past, but notes that they typically did not last as long. Sx persisted and worsened. Patient denies chest pain but characterizes the present sensation she is feeling as chest "discomfort" and rates its severity 4/10. She notes that she will occasionally get a "heat sensation" through her chest and arms, but did not experience this Sx this morning. Patient is followed by Dr. Lockett, she notes that her most recent stress test was "fine". Patient reports that she has been more stressed recently. is present in the room. Patient does not report fever, chills, erythema of eyes, sore throat, cough, abdominal pain, vomiting, dysuria, hematuria, myalgia, rash. On triage, nothing is noted to aggravate/ alleviate Sx. Home medications and allergies are reviewed. - History of Current Complaint Chief Complaint: EDDysrhythmPalp Time Seen by Provider: 12/14/18 10:05 Hx Obtained From: Patient Onset/Duration: Lasting Hours, Still Present Timing: Constant Severity Currently: Moderate - 4/10 Character: Pounding Aggravating: Nothing Alleviating: Nothing Associated Signs & Symptoms: Dizzy - "a tiny bit", Chest Pain - "discomfort", Nausea - Allergy/Home Medications Allergies/Adverse Reactions: Allergies Allergy/AdvReac Type Severity Reaction Status Date / Time citalopram Allergy Severe Agitation Verified 06/21/18 19:13 Penicillins Allergy Rash Verified 06/21/18 19:13 sulfamethoxazole Allergy Rash Verified 06/21/18 19:13 [From Sulfamethoprim] trimethoprim Allergy Rash Verified 06/21/18 19:13 [From Sulfamethoprim] Environmental/Seasonal Allergy Mild Cough, Uncoded 06/21/18 19:13 Hayfever Post nasal drip Home Medications: Home Medications Lisinopril TAB* [Prinivil TAB*] 5 mg PO DAILY 12/14/18 [History Confirmed ] PMH/Surg Hx/FS Hx/Imm Hx Endocrine/Hematology History: Denies: Hx Diabetes Cardiovascular History: Reports: Hx Atrial Fibrillation, Hx Hypercholesterolemia , Hx Hypertension - ON MEDS, Hx Rheumatic Fever - A CHILD, 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-pt states mild, Other Cardiovascular Problems/Disorders - PALPITATIONS, EPISODIC X10 YEARS Denies: Hx Angina, Hx Coronary Artery Disease, Hx Myocardial Infarction, Hx Pacemaker/ICD Respiratory History: Denies: Hx Asthma, Hx Chronic Obstructive Pulmonary Disease (COPD), Other Respiratory Problems/Disorders GI History: Reports: Hx Gastroesophageal Reflux Disease - pantoprazole, Hx Hiatal Hernia - small hiatal hernia Denies: Other GI Disorders History: Reports: Other Problems/Disorders - Nocturia x 2, states she drinks alot of liquids Musculoskeletal History: Reports: Hx Arthritis - feet, left knee and spine- upper and lower, Hx Tendonitis - Right wrist, Other Musculoskeletal History - cervical and lumbar disc disease Denies: Hx Osteoporosis Sensory History: Reports: Hx Cataracts - Bilateral, Hx Contacts or Glasses - glasses Denies: Hx Glaucoma, Hx Hearing Aid Opthamlomology History: Reports: Hx Cataracts - Bilateral, Hx Contacts or Glasses - glasses Denies: Hx Glaucoma Neurological History: Reports: Hx Migraine - Has a history of visual migraines, none recent Denies: Other Neuro Impairments/Disorders Psychiatric History: Reports: Hx Anxiety - on medication Denies: Hx Panic Disorder - Cancer History Hx Chemotherapy: No Hx Radiation Therapy: No - Surgical History Surgery Procedure, Year, and Place: 1956 [place]ONSILLECTOMY, [place]. [place] [facility] [place]ST EXCISION, [facility] [place]' [place] [facility] [place] [address] [facility] [place] Anesthesia Reactions: No - Immunization History Date of Tetanus Vaccine: UTD Date of Influenza Vaccine: UTD Infectious Disease History: No Infectious Disease History: Denies: Hx Clostridium Difficile, Hx Hepatitis, Hx Human Immunodeficiency Virus (HIV), Hx of Known/Suspected MRSA, Hx Shingles, Hx Tuberculosis, History Other Infectious Disease, Traveled Outside the [place] in Last 30 Days - Family History Known Family History: Positive: Other - Cancer, dementia - Social History Alcohol Use: Daily Alcohol Amount: 2-3 glasses of wine per day Hx Substance Use: Yes Substance Use Type: Reports: None Hx Tobacco Use: Yes Smoking Status (MU): Former Smoker Type: Cigarettes Amount Used/How Often: 1 1/2 PPD Length of Time of Smoking/Using Tobacco: 25 YEARS Have You Smoked in the Last Year: No Review of Systems Constitutional: Other - positive - shakiness Negative: Fever, Chills Negative: Erythema Negative: Sore Throat Positive: Palpitations, Chest Pain Negative: Shortness Of Breath, Cough Positive: Nausea. Negative: Abdominal Pain, Vomiting Negative: dysuria, hematuria Musculoskeletal: Other - negative - calf pain Negative: Myalgia, Edema Negative: Rash Neurological: Other - "a tiny bit" of dizziness Psychological: Other - positive - increased stress All Other Systems Reviewed And Are Negative: Yes Physical Exam - Summary Physical Exam Summary: Constitutional: Well-developed, Well-nourished, Alert. (-) Distressed Skin: Warm, Dry HENT: Normocephalic; Atraumatic Eyes: Conjunctiva normal Neck: Musculoskeletal ROM normal neck. (-) JVD, (-) Stridor, (-) Tracheal deviation Cardio: Rhythm regular, rate normal, Heart sounds normal; Intact distal pulses; The pedal pulses are 2+ and symmetric. Radial pulses are 2+ and symmetric. (-) Murmur Pulmonary/Chest wall: Effort normal. (-) Respiratory distress, (-) Wheezes, (-) Rales Abd: Soft, (-) tenderness, (-) Distension, (-) Guarding, (-) Rebound Musculoskeletal: (-) Edema Lymph: (-) Cervical adenopathy Neuro: Alert, Oriented x3 Psych: Mood and affect Normal Triage Information Reviewed: Yes Vital Signs On Initial Exam: Initial Vitals Temp Pulse Resp BP Pulse Ox 97.8 F 74 17 149/92 98 12/14/18 09:40 12/14/18 09:40 12/14/18 09:40 12/14/18 09:40 12/14/18 09:40 Vital Signs Reviewed: Yes Diagnostics - Vital Signs Vital Signs Temp Pulse Resp BP Pulse Ox 12/14/18 09:40 97.8 F 74 17 149/92 98 - Laboratory Lab Results: Lab Results 12/14/18 Range/Units 10:22 WBC 3.0 L (3.5-10.8) 10^3/uL RBC 4.10 (3.70-4.87) 10^6 /uL Hgb 13.6 (12.0-16.0) g/dL Hct 40 (35-47) % MCV 98 H (80-97) fL MCH 33 H (27-31) pg MCHC 34 (31-36) g/dL RDW 14 (10-15) % Plt Count 262 (150-450) 10^3/uL MPV 7.3 L (7.4-10.4) fL Neut % (Auto) Pending Lymph % (Auto) Pending Baldwin % (Auto) Pending Eos % (Auto) Pending Baso % (Auto) Pending Absolute Neuts (auto) Pending Absolute Lymphs (auto) Pending Absolute Monos (auto) Pending Absolute Eos (auto) Pending Absolute Basos (auto) Pending Absolute Nucleated RBC Pending Nucleated RBC % Pending Result Diagrams: 12/14/18 10:22 12/14/18 10:22 Lab Statement: Any lab studies that have been ordered have been reviewed, and results considered in the medical decision making process. - Radiology CXR Radiology Interpretation Completed By: Radiologist Summary of Radiographic Findings: IMPRESSION: No acute cardiopulmonary process by radiograph. THIS REPORT WAS REVIEWED BY DR. CAMILO. - EKG 0939 Cardiac Rate: NL - rate of 73 BPM EKG Rhythm: Sinus Rhythm Summary of EKG Findings: EKG showed sinus rhythm with rate of 73 BPM, no STEMI. Re-Evaluation - Re-Evaluation First Eval Re-Evaluation Time: 11:23 Comment: Review of medical records showed on February 2018 EKG, Dr. Lockett noted latent recovery, [address] depression. Nuclear stress test from February 2018 was normal. Second Eval Re-Evaluation Time: 12:53 Comment: Patient reported that chest discomfort resolved after nitro paste. Hospitalist to be contacted due to patient's cardiac risk factors. Third Eval Re-Evaluation Time: 14:01 Comment: Patient reports that she is experiencing palpitations at this time. Xanax to be administered. Course/Dx - Course Course Of Treatment: Patient is a 68 y/o F w/ presents to ED with complaints of palpations onsetting this morning at around 0500. Palpitations are characterized as a "pounding" sensation. PMHx of GERD, HLD, HTN, afib and anxiety attacks. Patient is on flecainide, xarelto. She had taken her morning medications but notes that she missed her flecainide dose last night. She notes that she also took Xanax this morning. PMHx of anxiety attacks. Patient measured pulse this morning and reports that she had BPM of 80-82. She reports that she later experienced shakiness and felt "uncomfortable". Nausea onset some time afterwards as well. She denies SOB, calf pain/swelling. Patient endorses "a tiny bit" of dizziness. She states that she has had episodes of palpitations in the past, but notes that they typically did not last as long. Sx persisted and worsened. Patient denies chest pain but characterizes the present sensation she is feeling as chest "discomfort" and rates its severity 4/ 10. Physical exam is unremarkable. EKG showed sinus rhythm with rate of 73 BPM, no STEMI. CXR IMPRESSION: No acute cardiopulmonary process by radiograph. Patient was given nitro 0.4 mg SL. Labs showed WBC 3, MCV 98, MCH 33, MPV 7.3, absolute neuts 0.8, glucose 101, first trop 0, second 0.01. UA was negative. Patient reported that chest discomfort resolved after nitro paste. Hospitalist to be contacted due to patient's cardiac risk factors. Patient's case was discussed with Dr. Pugh, hospitalist services to evaluate the patient. Patient reports that she is experiencing palpitations at this time. Xanax administered. 1403 - After evaluation, patient to be admitted by Dr. Pugh, admission orders placed at this time. - Diagnoses Provider Diagnoses: Chest pain - Physician Notifications Discussed Care Of Patient With: Dana Pugh Time Discussed With Above Provider: 12:53 Instructed by Provider To: Other - Patient's case was discussed with Dr. Pugh , hospitalist services to evaluate the patient. 1403 - After evaluation, patient to be admitted by Dr. Pugh, admission orders placed at this time. Discharge - Sign-Out/Discharge Documenting (check all that apply): Patient Departure - admit Patient Received Moderate/Deep Sedation with Procedure: No - Discharge Plan Condition: Stable Disposition: ADMITTED TO [facility] Referrals: Juan Greer MD [Primary Care Provider] - - Attestation Statements Document Initiated by Scribe: Yes Documenting Scribe: SANDI CORTES Provider For Whom Scribe is Documenting (Include Credential): JHONNY CAMILO MD Scribe Attestation: I, SANDI CORTES, scribed for JHONNY CAMILO MD on 12/14/18 at 1531. Status of Scribe Document: Ready
[2018-12-14] MEDS ORDERED: Nitroglycerin TAB 0.4 MG* 0.4 MG TAB SL ONE (10:57)
[2018-12-14 11:23] LABS: ABS Basophils 0.1 10^3/ul (0-0.2); ABS Lymphocytes 0.8 10^3/ul (1.0-4.8); ABS Monocytes 0.3 10^3/ul (0-0.8); ABS Neutrophils 1.7 10^3/ul (1.5-7.7); Eosinophil % 1.4 %; Lymphocyte % 28.5 %
[2018-12-14 11:34] LABS: Urine Appearance Clear; Urine Bilirubin Negative (Negative); Urine Blood Negative (Negative); Urine Color Yellow; Urine Glucose Negative (Negative); Urine Ketones Negative (Negative); Urine Nitrite Negative (Negative); Urine Protein Negative (Negative); Urine Specific Gravity 1.014 (1.010-1.030); Urine Urobilinogen Negative (Negative)
[2018-12-14 12:10] LABS: TSH (Thyroid Stimulating Horm) 0.74 mcIU/mL (0.34-5.60)
[2018-12-14] MEDS ORDERED: Nitroglycerin TAB 0.4 MG* 0.4 MG TAB SL PRN (14:02)
[2018-12-14] MEDS ORDERED: oxyCODONE TAB* 5 MG TAB PO PRN (14:02)
[2018-12-14] MEDS ORDERED: Ondansetron INJ* 2 MG/ML VIAL IV PRN (14:02)
[2018-12-14] MEDS ORDERED: Acetaminophen TAB* 325 MG PO PRN (14:02)
[2018-12-14] MEDS ORDERED: HYDROcodone/ACETAMIN 5-325 MG* 1 TAB PO PRN (14:05)
[2018-12-14] MEDS ORDERED: ALPRAZolam TAB* 0.25 MG PO PRN (14:05)
[2018-12-14] MEDS ORDERED: ALPRAZolam TAB* 0.5 MG PO ONE (14:07)
[2018-12-14] MEDS ORDERED: Hydrocodone/Acetamin 10/325 1 TAB PO PRN (15:31)
--- NOTE | 2018-12-14 15:53 | HP ---
CC: Yue William, [facility]; Dr. Bernardino Lockett * ADMISSION HISTORY AND PHYSICAL: DATE OF ADMISSION: 12/14/18 PRIMARY CARE PROVIDER: Yue William at [facility]. MY ATTENDING WHILE IN THE HOSPITAL: Dr. Dana Pugh.* (DICTATED BY JOSÉ MIGUEL LONGORIA) OUTPATIENT SHIPPING CHECKER: Dr. Bernardino Lockett. CHIEF COMPLAINT: Palpitation sensation x9 hours. HISTORY OF PRESENT ILLNESS: Ms. Mariano is a 68-year-old female with past medical history significant for paroxysmal atrial fibrillation, high blood pressure, hyperlipidemia, PVCs, reduced ejection fraction, rheumatic fever, and pulmonary hypertension who presents to the emergency department after this morning she woke up to go to the bathroom and had a palpitation sensation in her chest similar to when she has previously been in atrial fibrillation with RVR. She took her pulse, it was around 80, but her sensation did not go away. The patient also had a sensation of heat in her chest that came and went and radiated into her arms. The patient has been under a lot of stress recently and took a Xanax, which she has previously been prescribed for anxiety and panic attacks, which she did not feel helped. She walked to the mailbox and back, which did not make her sensation better or worse, but her sensation did get worse over the course of the morning. The patient denied dizziness. No shortness of breath. The patient was administered a dose of flecainide before coming to the hospital. She said this happens infrequently, but does happen every once in a while when she falls asleep on the couch. The patient has been having significant issues with indigestion recently, particularly in the evenings with stomach upset. Because of this, she has lost approximately 11 pounds due to poor appetite. The patient denies any functional decline, though she does say she exercises less than she does normally. The patient again has been under a lot of stress because of her undergoing heart failure treatment. The patient in the emergency department had a nitroglycerin, which she said diminished her symptoms, but then her symptoms got worse again after she ate some lunch. The patient denies any swelling in her legs or difficulty breathing lying flat. The patient had an endoscopy in 2018, which was reported as showing some irritation, but was otherwise unremarkable. Due to concern for atypical chest discomfort and the patient's risk factors, we were asked to evaluate the patient for admission to the hospital. PAST MEDICAL HISTORY: Paroxysmal atrial fibrillation, hypertension, hyperlipidemia, PVCs, pulmonary hypertension, history of rheumatic fever, heart failure with reduced ejection fraction, cervical spine pathology, GERD. PAST SURGICAL HISTORY: Cataract surgery, cervical spinal fusion, hysterectomy, ganglion cyst excision. MEDICATIONS: 1. Lisinopril 5 mg p.o. daily. 2. Metoprolol 100 mg p.o. b.i.d. 3. Flecainide 50 mg p.o. b.i.d. 4. Famotidine 20 mg p.o. b.i.d. 5. Xanax 0.25 mg p.o. daily. 6. Percocet 10/325 q.4 hours as needed for pain. 7. Xarelto 20 mg p.o. daily. 8. Lipitor 80 mg p.o. daily. ALLERGIES: BACTRIM, PENICILLIN, and CITALOPRAM. FAMILY HISTORY: The patient's sister of cancer. The patient's mother of bladder cancer. The patient's father of renal cell cancer when he was only 50. SOCIAL HISTORY: The patient smoked a pack a day for 25 years. Drinks occasional alcohol. Never used illicit drugs. 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 The patient is . The patient's surrogate decision maker will be her , Pedro. REVIEW OF SYSTEMS: A 14-point review of systems was reviewed and is negative, except as above in the HPI. PHYSICAL EXAMINATION GENERAL: The patient is a 68-year-old female who appears stated age and is sitting comfortably in bed, in no acute distress. VITAL SIGNS: Temperature 97.8, pulse rate 80, respiratory rate 23, oxygen saturation 98% on room air, blood pressure 138/81. HEENT: Head: Normocephalic, atraumatic. Sclerae anicteric. No conjunctival injection. Nasal mucosa moist. Oral mucosa moist. No pharyngeal erythema, discharge, or exudate. NECK: Supple, nontender. No lymphadenopathy. No carotid bruits auscultated. No JVD. RESPIRATORY: Clear to auscultation bilaterally. No wheezes, rales, or rhonchi. Good air exchange bilaterally. CARDIAC: Regular rate and rhythm. No clicks, murmurs, gallops, or rubs. Pulses are 2+ in the bilateral dorsalis pedis, posterior tibialis and radial areas. No bilateral calf tenderness or lower extremity edema. ABDOMEN: Soft, nontender, nondistended. Bowel sounds present and normoactive in all 4 quadrants. No hepatosplenomegaly. No abdominal bruits auscultated. No hepatojugular reflux. Full sensation in the abdomen. GENITOURINARY: No suprapubic or CVA tenderness. NEURO: Cranial nerves II through XII intact. No focal deficits. Alert and oriented x3. PSYCHIATRIC: Pleasant and cooperative. SKIN: Clean, dry, and intact. No rash. DIAGNOSTIC STUDIES/LAB DATA: Laboratory Data: White blood cell count 3.0, hemoglobin 13.6, MCV 98, platelet count 262. Sodium 140, potassium 3.6, chloride 104, carbon dioxide 29, anion gap 8, BUN 14, creatinine 0.79, glucose 101, lactic acid 2.0, calcium 9.3, magnesium 1.9. Bilirubin 0.5, AST 13, ALT 12 , alkaline phosphatase 52. Troponin-I 0.00. Protein 7.8, albumin 4.2, globulin 2.8. TSH 0.74. Urine, yellow clear, specific gravity 1.014; otherwise , unremarkable. Studies: EKG shows normal sinus rhythm, normal axis, possible left atrial enlargement, artifactual ST-segment elevation in V1 through V3 only present in 1 beat, possibly representing PAC. Intraventricular conduction delay, no hypertrophy. Compared to previous exam, there are no significant changes. Chest x-ray read as no acute cardiopulmonary process on radiograph. ASSESSMENT AND PLAN: Impression: Ms. Mariano is a 68-year-old female with past medical history significant for paroxysmal atrial fibrillation, hypertension, hyperlipidemia, heart failure with reduced ejection fraction, pulmonary hypertension who presents to the emergency department with 9 hours of chest discomfort, which she describes as palpitations as well as a heat sensation in her chest. The patient admitted to the hospital for rule out myocardial infarction and risk stratification. 1. Chest discomfort. The patient describes her sensation as a palpitation feeling where she feels like her heart is beating in her chest; however, this was also accompanied by heat sensation. She states it is similar to when she previously had atrial fibrillation with rapid ventricular response. The patient is at an age where she would likely have atypical chest pain symptoms. The patient is under a lot of stress. This may be GI related. This may be related to premature ventricular contractions or a small bout of atrial fibrillation that was provoked by her missing her flecainide; however, given her persistent symptoms without signs of arrhythmia, the patient will have a nuclear exercise stress test in the morning to assess for any areas of ischemia. The patient did have a negative stress test in March 2018; however , the patient does have relatively unexplained reduced ejection fraction, which could have been provoked by previous myocardial event. The patient will have risk stratification with hemoglobin A1c. The patient will have troponins trended x3. The patient will have repeat EKG in the morning. The patient will be n.p.o. after midnight. Nitroglycerin will be available for any chest pain that develops. 2. Paroxysmal atrial fibrillation. The patient is not currently in atrial fibrillation. Continue the patient's metoprolol, except for before the stress test and the patient's Xarelto. The patient's CHADS-VASc score is 3. 3. Hyperlipidemia. Continue the patient's atorvastatin and check a lipid profile. 4. Heart failure with reduced ejection fraction. The patient's most recent ejection fraction was 45% to 50%, which is borderline low. This could be related to atrial fibrillation, could be related to frequent premature ventricular contractions or previous myocardial event as well as possible uncontrolled hypertension. The patient has had previous stress testing, which was negative. The patient is to follow up with her outpatient digital strategy specialist with regards to this. The patient is not in heart failure exacerbation at this time and does not necessitate diuretics. 5. Pulmonary hypertension. This is likely related to heart failure with reduced ejection fraction and possibly from previous rheumatic valve disorder related to rheumatic fever as a child. 6. Premature ventricular contractions. These are not prominent on the patient' s monitoring. 7. FEN. The patient will have a heart-healthy diet without caffeine. Fluids not indicated. The patient will be n.p.o. after midnight. 8. DVT prophylaxis. On Xarelto. 9. Disposition. The patient is admitted for observation in the hospital. TIME SPENT: Approximately 60 minutes were spent on the admission of this patient, 30 of which were spent [id number] with the patient obtaining history and physical and discussing treatment plan. This plan has been discussed with my attending, Dr. Dana Pugh, and she is in agreement. JOSÉ MIGUEL LONGORIA [id number]/[facility] #: [id number] NINFA
[2018-12-14 20:13] LABS: Folate 6.34 ng/mL (>3.99)
[2018-12-14] MEDS: Metoprolol Succinate XL TAB* 100 MG PO SCH (21:10)
[2018-12-14] MEDS: Flecainide TAB* 100 MG PO SCH (21:11)
[2018-12-14] MEDS: Famotidine TAB* 20 MG PO SCH (21:12)
[2018-12-15 06:15] LABS: ABS Eosinophils 0.1 10^3/ul (0-0.6); ABS Lymphocytes 1.1 10^3/ul (1.0-4.8); ABS Monocytes 0.4 10^3/ul (0-0.8); Eosinophil % 2.8 %; Hematocrit 40 % (35-47); Hemoglobin 13.4 g/dL (12.0-16.0); Lymphocyte % 30.3 %; Mean Corpuscular HGB Conc 34 g/dL (31-36); Mean Corpuscular Hemoglobin 33 pg (27-31); Mean Corpuscular Volume 98 fL (80-97); Mean Platelet Volume 7.3 fL (7.4-10.4); Platelet Count 263 10^3/uL (150-450); Red Blood Count 4.04 10^6 /uL (3.70-4.87); Red Cell Distribution Width 13 % (10-15); White Blood Count 3.7 10^3/uL (3.5-10.8)
[2018-12-15 06:36] LABS: BUN/Creatinine Ratio 19.5 (8-20); Calcium 9.5 mg/dL (8.6-10.3); EGFR African American 89.7 (>60); EGFR Non-African American 74.1 (>60); HDL Cholesterol 57.9 mg/dL; Potassium 3.7 mmol/L (3.5-5.0)
[2018-12-15] MEDS: Famotidine TAB* 20 MG PO SCH (08:05)
[2018-12-15] MEDS: Flecainide TAB* 100 MG PO SCH (08:05)
[2018-12-15] MEDS: Metoprolol Succinate XL TAB* 100 MG PO SCH (08:05)
[2018-12-15] MEDS ORDERED: Atorvastatin* 80 MG TAB PO SCH (09:00)
[2018-12-15] MEDS ORDERED: Cyanocobalamin TAB* 500 MCG PO SCH (09:00)
[2018-12-15] MEDS ORDERED: Lisinopril TAB* 5 MG PO SCH (09:00)
[2018-12-15 11:18] VITALS: BP 137/75
--- NOTE | 2018-12-15 13:53 | DS ---
CC: Dr. Yue William; Dr. Greer; Dr. Lockett; Dr. Interiano * DISCHARGE SUMMARY: DATE OF ADMISSION: 12/14/18 DATE OF DISCHARGE: 12/15/18 PRIMARY CARE PROVIDER: Dr. Yue William and Dr. Greer from [facility]. DISCHARGE DIAGNOSIS: Chest pain with palpitations with [id number] probability cardiac stress test documented on 12/15/18. SECONDARY DIAGNOSES: 1. History of paroxysmal atrial fibrillation. 2. Hypertension. 3. Dyslipidemia. 4. History of premature ventricular contractions. 5. Pulmonary hypertension. 6. History of rheumatic fever. 7. History of congestive heart failure in the past with reduced ejection fraction. 8. History of cervical spine degenerative disk disease. 9. Gastroesophageal reflux disease. 10. History of status post cervical spinal fusion. MEDICATIONS AT DISCHARGE: Include vitamin B12 of 1000 mcg p.o. daily, which is a new medication. The remaining medications are unchanged from admission and include: 1. Lipitor 80 mg daily. 2. Pepcid 20 mg b.i.d. 3. Alprazolam 0.25 mg b.i.d. p.r.n. 4. Xarelto 20 mg b.i.d. 5. Hydrocodone/acetaminophen 10/325 mg on a p.r.n. basis. 6. Flecainide 50 mg b.i.d. 7. Metoprolol succinate 100 mg b.i.d. 8. Lisinopril 5 mg daily. LABORATORY DATA AND STUDIES PERFORMED DURING THE HOSPITAL STAY: Vitamin B12 was 268, folate 6.3, TSH of 0.7, that was at admission. Lipid profile obtained on 12/15/18, in the morning, showed triglycerides of 225, cholesterol total of 286, LDL of 183, and HDL of 57.9. On 12/15/18, sodium 142, potassium 3.7, chloride 106, carbon dioxide 28, BUN 15, creatinine 0.77. White blood cell count 3.7, hemoglobin 13.4, hematocrit 40, and platelets 263. The patient's nuclear portion of her stress test obtained on 12/15/18. Impression: "No definite fixed or reversible perfusion defects," noted as low risk. The patient's treadmill part of the Myoview showed, "Intermediate risk Hooks score on EKG portion of exercise stress test. Nuclear portion to be reported separately by Radiology." That was reported by Dr. Naylor. It was noted in the body of the report that the patient had no definite EKG changes of ischemia during exercise. However, in recovery there was down sloping of the ST segments in V4 to V6 suggestive of ischemia. late recovery and no arrhythmias were provoked. HOSPITALIZATION COURSE: Chioma Mariano is a 68-year-old female with a history of paroxysmal atrial fibrillation, who presented with chest pain and palpitations. Please see history of present illness for full details. In short , the patient was placed on overnight observation on telemetry monitored bed, with no arrhythmias noted. Her troponin continued to be negative throughout the hospital stay. She underwent a cardiac stress test in the morning. The nuclear portion was basically low risk while the exercise portion showed some down sloping of ST in the V4 and V6 and an intermediate probability. The patient at discharge has no chest pain. She is going to be discharged home. Recommendation is to follow up with Dr. Lockett in approximately 1 to 2 weeks and with her primary care provider in approximately 4 to 7 days. Please also note that the patient's vitamin B12 level was low normal and vitamin B12 pill supplement was started during the hospital stay. PHYSICAL EXAMINATION: At the time of discharge, blood pressure was 137/75, heart rate of 70 and regular, respiratory rate of 12, oxygen saturation 99% on room air, and temperature 97.7. General: The patient is a pleasant 68-year-old female, who is in no acute distress. Alert, awake, and oriented x3. HEENT: Head is atraumatic and normocephalic. Eyes: Pupils are equal, round, and reactive to light and accommodation. Oropharynx clear. Mucosa moist. Neck: Supple. No JVD, no bruits bilaterally. Cardiovascular: Regular rate and rhythm. No murmur. Respiratory: Clear to auscultation bilaterally. Abdomen: Soft and nontender. Bowel sounds present in all 4 quadrants. Extremities: There is no edema. Pulses are +2 bilaterally. No clubbing or cyanosis. Neuro evaluation: Speech is clear. Cranial nerves II through XII are grossly intact. Motor strength is 5/5 bilaterally. Please note that this is a short summary of the patient's hospitalization. Please refer to further medical records for details. DISPOSITION: Discharged home. CONDITION ON DISCHARGE: Stable. [id number]/[facility] #: [id number] MTDTong
[2018-12-15] MEDS ORDERED: Rivaroxaban TAB(*) 20 MG TAB PO SCH (18:00)
== END 2018-12-15 13:30 | disposition home or self-care (01) ==
LOC: ED 09:35 → MEDTELE 14:03
PROVIDERS: ADMIT Hospitalist; ATTEND Internal Medicine
DX: R07.9 Chest pain, unspecified (principal); R00.2 Palpitations; I48.0 Paroxysmal atrial fibrillation; E78.5 Hyperlipidemia, unspecified; I11.0 Hypertensive heart disease with heart failure; I49.3 Ventricular premature depolarization; I27.20 Pulmonary hypertension, unspecified; Z86.19 Personal history of other infectious and parasitic diseases; K21.9 Gastro-esophageal reflux disease without esophagitis; Z88.0 Allergy status to penicillin; Z79.899 Other long term (current) drug therapy; E78.00 Pure hypercholesterolemia, unspecified; Z88.2 Allergy status to sulfonamides; Z87.891 Personal history of nicotine dependence; R94.31 Abnormal electrocardiogram [ECG] [EKG]; I50.9 Heart failure, unspecified; Z98.1 Arthrodesis status
CPT/HCPCS: 36415; 71045; 78452; 80048; 80053; 80061; 81003; 82607; 82746; 83036; 83605; 83735; 84443; 84484; 85025; 93005; 93017; 99285; A9270-GY; A9502; G0378

== ENCOUNTER 2019-07-05 09:20 | Emergency (ER) | payer MEDICARE ==
[2019-07-05 09:51] LABS: ABS Basophils 0.1 10^3/ul (0-0.2); ABS Eosinophils 0.1 10^3/ul (0-0.6); ABS Lymphocytes 1.1 10^3/ul (1.0-4.8); ABS Monocytes 0.5 10^3/ul (0-0.8); ABS Neutrophils 3.7 10^3/ul (1.5-7.7); Eosinophil % 1.8 %; Hematocrit 40 % (35-47); Hemoglobin 13.6 g/dL (12.0-16.0); Lymphocyte % 20.5 %; Mean Corpuscular HGB Conc 34 g/dL (31-36); Mean Corpuscular Hemoglobin 34 pg (27-31); Mean Corpuscular Volume 100 fL (80-97); Mean Platelet Volume 7.3 fL (7.4-10.4); Nucleated Red Blood Cells % 0.1; Platelet Count 284 10^3/uL (150-450); Red Blood Count 4.02 10^6 /uL (3.70-4.87); Red Cell Distribution Width 14 % (10-15); White Blood Count 5.5 10^3/uL (3.5-10.8)
--- NOTE | 2019-07-05 09:54 | ED ---
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 She states her BP taken at home was 188/120. Patient reports a Hx of A-fib and is on Flecainide for A-fib and Lorazepam for anxiety. Patient denies CP. Her application counselor is . She has done stress tests in the past that have come back normal. The patient rates the pain 0/10 in severity. Symptoms aggravated by nothing. Symptoms alleviated by nothing. - History of Current Complaint Chief Complaint: EDDysrhythmPalp Stated Complaint: HEART PALPITATIONS PER PT Time Seen by Provider: 07/05/19 09:42 Hx Obtained From: Patient Onset/Duration: Started Hours Ago Pain Intensity: 0 Pain Scale Used: 0-10 Numeric Aggravating Factor(s): Nothing Alleviating Factor(s): Nothing Associated Signs and Symptoms: Positive: Palpitations, Other: - irregular heartbeat. Negative: Chest Pain - Additional Pertinent History Primary Care Physician: [id number] - Allergy/Home Medications Allergies/Adverse Reactions: Allergies Allergy/AdvReac Type Severity Reaction Status Date / Time citalopram Allergy Severe Agitation Verified 07/05/19 09:27 Penicillins Allergy Rash Verified 07/05/19 09:27 sulfamethoxazole Allergy Rash Verified 07/05/19 09:27 [From Sulfamethoprim] trimethoprim Allergy Rash Verified 07/05/19 09:27 [From Sulfamethoprim] Environmental/Seasonal Allergy Mild Cough, Uncoded 07/05/19 09:27 Hayfever Post nasal drip PMH/Surg Hx/FS Hx/Imm Hx Endocrine/Hematology History: Denies: Hx Diabetes Cardiovascular History: Reports: Hx Atrial Fibrillation, Hx Hypercholesterolemia , Hx Hypertension - ON MEDS, Hx Rheumatic Fever - A CHILD, 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-pt states mild, Other Cardiovascular Problems/Disorders - PALPITATIONS, EPISODIC X10 YEARS Denies: Hx Angina, Hx Coronary Artery Disease, Hx Myocardial Infarction, Hx Pacemaker/ICD Respiratory History: Denies: Hx Asthma, Hx Chronic Obstructive Pulmonary Disease (COPD), Other Respiratory Problems/Disorders GI History: Reports: Hx Gastroesophageal Reflux Disease - pantoprazole, Hx Hiatal Hernia - small hiatal hernia Denies: Other GI Disorders History: Reports: Other Problems/Disorders - Nocturia x 2, states she drinks alot of liquids Musculoskeletal History: Reports: Hx Arthritis - feet, left knee and spine- upper and lower, Hx Tendonitis - Right wrist, Other Musculoskeletal History - cervical and lumbar disc disease Denies: Hx Osteoporosis Sensory History: Reports: Hx Cataracts - Bilateral, Hx Contacts or Glasses - glasses Denies: Hx Glaucoma, Hx Hearing Aid Opthamlomology History: Reports: Hx Cataracts - Bilateral, Hx Contacts or Glasses - glasses Denies: Hx Glaucoma Neurological History: Reports: Hx Migraine - Has a history of visual migraines, none recent Denies: Other Neuro Impairments/Disorders Psychiatric History: Reports: Hx Anxiety - on medication Denies: Hx Panic Disorder - Cancer History Hx Chemotherapy: No Hx Radiation Therapy: No - Surgical History Surgery Procedure, Year, and Place: 1956 TONSILLECTOMY, [place]. DILATION AND C[place]TTAGE, [facility] [place]. RIGHT GANGLION CYST EXCISION, [facility] [place]. HYSTERECTOMY, [facility] [place]. 2015 Cervical spine laminectomy [facility] [place] Hx Anesthesia Reactions: No - Immunization History Date of Tetanus Vaccine: UTD Date of Influenza Vaccine: UTD Infectious Disease History: No Infectious Disease History: Denies: Hx Clostridium Difficile, Hx Hepatitis, Hx Human Immunodeficiency Virus (HIV), Hx of Known/Suspected MRSA, Hx Shingles, Hx Tuberculosis, History Other Infectious Disease, Traveled Outside the in Last 30 Days - Family History Known Family History: Positive: Other - Cancer, dementia - Social History Alcohol Use: Daily Alcohol Amount: 2-3 glasses of wine per day Hx Substance Use: Yes Substance Use Type: Reports: None Hx Tobacco Use: Yes Smoking Status (MU): Former Smoker Type: Cigarettes Amount Used/How Often: 1 1/2 PPD Length of Time of Smoking/Using Tobacco: 25 YEARS Have You Smoked in the Last Year: No Review of Systems Negative: Fever Positive: Palpitations, Other - irregular heartbeat . Negative: Chest Pain All Other Systems Reviewed And Are Negative: Yes Physical Exam - Summary Physical Exam Summary: Appearance: The patient is well-nourished in no acute distress and in no acute pain. Skin: The skin is warm and dry, and skin color reflects adequate perfusion. HEENT: The head is normocephalic and atraumatic. The pupils are equal and reactive. The conjunctivae are clear and without drainage. Nares are patent and without drainage. Mouth reveals moist mucous membranes, and the throat is without erythema and exudate. The external ears are intact. The ear canals are patent and without drainage. The tympanic membranes are intact. Neck: The neck is supple with full range of motion and non-tender. There are no carotid bruits. There is no neck vein distension. Respiratory: Chest is non-tender. Lungs are clear to auscultation and breath sounds are symmetrical and equal. Cardiovascular: Irregularly irregular heartbeat. Abdomen: The abdomen is soft and non-tender. There are normal bowel sounds heard in all four quadrants and there is no organomegaly palpated. Musculoskeletal: There is no back tenderness noted. Extremities are non-tender with full range of motion. There is good capillary refill. There is no peripheral edema or calf tenderness elicited. Neurological: Patient is alert and oriented to person, place and time. The patient has symmetrical motor strength in all four extremities. Cranial nerves are grossly intact. Deep tendon reflexes are symmetrical and equal in all four extremities. Psychiatric: The patient has an appropriate affect and does not exhibit any anxiety or depression. Triage Information Reviewed: Yes Vital Signs On Initial Exam: Initial Vitals Temp Pulse Resp BP Pulse Ox 99.7 F 101 19 00/00 99 07/05/19 09:25 07/05/19 09:25 07/05/19 09:25 07/05/19 09:25 07/05/19 09:25 Vital Signs Reviewed: Yes Procedures - Sedation Patient Received Moderate/Deep Sedation with Procedure: No Diagnostics - Vital Signs Vital Signs Temp Pulse Resp BP Pulse Ox 07/05/19 09:25 99.7 F 101 19 00/00 99 - Laboratory Result Diagrams: 07/05/19 09:39 07/05/19 09:39 Lab Statement: Any lab studies that have been ordered have been reviewed, and results considered in the medical decision making process. - Radiology CXR Radiology Interpretation Completed By: Radiologist Summary of Radiographic Findings: IMPRESSION: NO ACTIVE CARDIOPULMONARY DISEASE. has reviewed this report. - EKG 0922 Cardiac Rate: NL EKG Rhythm: Atrial Fibrillation Summary of EKG Findings: An EKG at 0922 reveals a HR of 95 bpm and atrial fibrillation with controlled ventricular spots. has reviewed and interpreted this EKG. Disposition - Course Course Of Treatment: Ms. Mariano came in with atrial fibrillation. She was nontoxic in appearance stable vitals. Her labs and chest x-ray were unremarkable and she spontaneously converted to normal sinus rhythm just about the time they were finished. I spoke with Dr. Lockett who recommended follow-up with no changes in her medication. - Diagnoses Provider Diagnoses: Atrial fibrillation Discharge ED - Sign-Out/Discharge Documenting (check all that apply): Patient Departure - discharge - Discharge Plan Condition: Stable Disposition: HOME Patient Education Materials: A-fib (Atrial Fibrillation) (ED) Referrals: Bernardino Lockett MD [Medical Doctor] - 3 Days Additional Instructions: Please follow up with , cardiology, in 3 days. Return to the Emergency Department for new or worsening symptoms. - Billing Disposition and Condition Condition: STABLE Disposition: Home - Attestation Statements Document Initiated by Chiara: Yes Documenting Scribe: Nicholas Carbone Provider For Whom Philipibe is Documenting (Include Credential): Boom Arcos MD Scribe Attestation: I, Nicholas Carbone, scribed for Boom Arcos MD on 07/05/19 at 1552. Scribe Documentation Reviewed: Yes Provider Attestation: The documentation as recorded by the Nicholas tillman accurately reflects the service I personally performed and the decisions made by me, Boom Arcos MD Status of Scribe Document: Viewed
[2019-07-05 10:05] LABS: Albumin 4.6 g/dL (3.2-5.2); Calcium 9.6 mg/dL (8.6-10.3); Magnesium 1.7 mg/dL (1.9-2.7); Potassium 3.7 mmol/L (3.5-5.0); Total Bilirubin 0.7 mg/dL (0.2-1.0)
[2019-07-05 10:10] LABS: BUN/Creatinine Ratio 18.8 (8-20); EGFR Non-African American 70.9 (>60)
[2019-07-05 10:11] LABS: Albumin/Globulin Ratio 1.8 (1-3); EGFR African American 85.8 (>60); Globulin 2.6 g/dL (2-4); Total Protein 7.2 g/dL (6.4-8.9)
[2019-07-05 10:28] LABS: INR 2.11 (0.82-1.09)
[2019-07-05 10:40] LABS: TSH (Thyroid Stimulating Horm) 0.74 mcIU/mL (0.34-5.60)
[2019-07-05 12:11] VITALS: BP 173/103
== END 2019-07-05 12:14 | disposition home or self-care (01) ==
LOC: ED 09:20
DX: I48.91 Unspecified atrial fibrillation (principal); I44.7 Left bundle-branch block, unspecified; E78.00 Pure hypercholesterolemia, unspecified; I10 Essential (primary) hypertension; K21.9 Gastro-esophageal reflux disease without esophagitis; F41.9 Anxiety disorder, unspecified; Z79.899 Other long term (current) drug therapy; Z88.0 Allergy status to penicillin; Z88.2 Allergy status to sulfonamides; Z88.8 Allergy status to other drugs, medicaments and biological substances; Z87.891 Personal history of nicotine dependence
CPT/HCPCS: 36415; 71045; 80053; 83605; 83735; 84443; 84484; 85025; 85610; 93005; 99283

== ENCOUNTER 2022-07-31 23:00 | Observation (INO) ==
[2022-07-31 23:27] LABS: ABS Eosinophils 0.1 10^3/ul (0-0.6); ABS Lymphocytes 1.4 10^3/ul (1.0-4.8); ABS Monocytes 0.3 10^3/ul (0-0.8); ABS Neutrophils 1.9 10^3/ul (1.5-7.7); Eosinophil % 2.4 %; Hematocrit 39 % (35-47); Lymphocyte % 36.8 %; Mean Corpuscular HGB Conc 33 g/dL (31-36); Mean Corpuscular Hemoglobin 33 pg (27-31); Mean Corpuscular Volume 100 fL (80-97); Mean Platelet Volume 7.1 fL (7.4-10.4); Platelet Count 307 10^3/uL (150-450); Red Cell Distribution Width 13 % (10-15); White Blood Count 3.7 10^3/uL (3.5-10.8)
[2022-07-31 23:40] LABS: INR 1.19 (0.88-1.18)
[2022-08-01 00:04] LABS: Albumin 4.1 g/dL (3.2-5.2); Albumin/Globulin Ratio 1.5 (1-3); Calcium 9.3 mg/dL (8.6-10.3); Creatinine, Serum 0.9 mg/dL (0.51-0.95); Globulin 2.7 g/dL (2-4); Potassium 3.7 mmol/L (3.5-5.0); Total Bilirubin 0.3 mg/dL (0.2-1.0); Total Protein 6.8 g/dL (6.4-8.9); eGFR CKD-EPI 67.5 (>60)
[2022-08-01 01:04] LABS: High Sensitivity Troponin 1 Hr 5 pg/mL (<15)
[2022-08-01 01:28] LABS: Magnesium 2.1 mg/dL (1.9-2.7)
[2022-08-01] MEDS ORDERED: Ondansetron 4 mg VIAL 2 MG/ML 2 ml VIAL IV PRN (01:38)
[2022-08-01] MEDS ORDERED: Senna TAB 8.6 mg TAB PO PRN (01:38)
[2022-08-01 01:43] LABS: TSH Ultra Thyroid Stim Horm 1.87 mcIU/mL (0.34-5.60)
[2022-08-01] MEDS ORDERED: HYDROcodone/Acetamin 10/325 TAB (NF) PO PRN (01:55)
[2022-08-01 07:47] LABS: Urine Appearance Cloudy; Urine Bacteria Absent (Absent); Urine Bilirubin Negative (Negative); Urine Blood 1+ (Negative); Urine Color Yellow; Urine Glucose Negative (Negative); Urine Ketones Negative (Negative); Urine Nitrite Negative (Negative); Urine Protein Negative (Negative); Urine Red Blood Cell Trace(0-2/hpf) (Absent); Urine Specific Gravity 1.021 (1.002-1.030); Urine Squamous Epithelial Cell Present (Absent); Urine Urobilinogen Negative (Negative); Urine White Blood Cell Trace(0-5/hpf) (Absent)
[2022-08-01 08:12] LABS: Calcium 8.9 mg/dL (8.6-10.3); Creatinine, Serum 0.71 mg/dL (0.51-0.95); Potassium 4.2 mmol/L (3.5-5.0); eGFR CKD-EPI 89.2 (>60)
[2022-08-01 11:49] VITALS: BP 150/80
== END 2022-08-01 11:47 | disposition home or self-care (01) ==
LOC: ED 23:00 → EDHOLD 23:00 → SUATTDRO 08-01 01:31 → EDHOLD 08-01 11:46
PROVIDERS: ADMIT Student in an Organized Health Care Education/Training Program; ATTEND Internal Medicine